=== PATIENT | male | born 1980 | race Caucasian/White ===

== ENCOUNTER 2021-12-15 17:09 | Emergency (ER) | payer OTHER, SELFPAY ==
[2021-12-15 17:27] VITALS: BP 161/100; PULSE 92; RESP 18; TEMP 37.4; O2SAT 98
--- NOTE | 2021-12-15 18:41 | ED.DENTAL ---
HPI - Dental/Oral General Chief complaint: Dental/Oral Stated complaint: Tooth pain Time Seen by Provider: 12/15/21 18:40 Source: patient, RN notes reviewed and old records reviewed Mode of arrival: ambulatory Limitations: no limitations History of Present Illness HPI Narrative: 41 year old male who presents to [facility] care with complaints of dental pain to lower molar for the past 3 days. Patient has noted dental caries with red swollen gums around #29 tooth. Patient reports that he has a dental appointment first week of December. Patient does have history of tobacco abuse of .5 packs per day of cigarettes. Patient reports that he has been taking ibuprofen for his discomfort. Patient denies any facial swelling or any difficulty with opening his mouth or any problems with breathing or swallowing. MD Complaint: tooth pain Location: Tooth # (29) Onset (ago): day(s) (3) Duration: constant Severity: moderate Severity scale (1-10): 5 Relieving factors: NSAIDs Exacerbating factors: chewing Associated symptoms: gum swelling Treatment prior to arrival: oral analgesic Related Data Home Medications Medication Instructions Recorded Confirmed Lexapro 10 mg PO DAILY 12/15/21 12/15/21 amlodipine 10 mg PO DAILY 12/15/21 12/15/21 Allergies Allergy/AdvReac Type Severity Reaction Status Date / Time codeine Allergy Unknown Nausea Verified 12/15/21 17:53 Review of Systems Review of Systems: CONSTITUTIONAL: Denies fever, chills, or sweats. EYES: Denies visual changes, redness, or discharge. ENT: Denies rhinorrhea, congestion, sore throat, or otalgia, positive for dental pain #29 tooth with gum swelling CARDIOVASCULAR: Denies chest pain, palpitations, or edema. RESPIRATORY: Denies cough or dyspnea. GASTROINTESTINAL: Denies abdominal pain, nausea, vomiting, or diarrhea. GENITOURINARY: Denies dysuria or hematuria. SKIN: Denies rash or itching. MUSCULOSKELETAL: Denies back pain, joint pain, or myalgia. NEUROLOGIC: Denies headache, numbness, or weakness. PSYCHIATRIC: Positive for history of anxiety or depression. All systems reviewed & are unremarkable except as noted in HPI and below PMFSH Past Medical History Medical History (Updated 12/17/21 @ 07:26 by Sofi Walker NP) Anxiety Fracture of jaw Hypertension Surgical History Surgical History (Updated 12/17/21 @ 07:19 by Sfoi Walker NP) H/O chest tube placement History of tonsillectomy Social History Social History (Updated 12/17/21 @ 07:20 by Sofi Walker NP) Smoking packs per day: 0.5 Smoking cigarettes per day: 10.0 Smoking status: Current every day smoker Tobacco type: cigarettes Alcohol intake: current Alcohol use details: social Substance use: never Living arrangements: with family Gender identity (if verbalized by the patient): Male Comments At time of signature, agree with nursing past medical, surgical, social and family history. There is no relevant family history pertinent to the presenting complaint Exam Narrative: GENERAL: Well-appearing, well-nourished, and in no acute distress. HEAD: Normocephalic, atraumatic. EYES: PERRLA and EOMI. ENT: Nares clear, no rhinorrhea or epistaxis. Mucous membranes moist.TM's normal with good lightreflex, throat pink with no lesions or exudates, tonsils absent, noted caries to #29 tooth with some surrounding gum swelling, no drainage noted, no trismus or any Keaton angina noted. NECK: Supple.no lymphadenopathy CHEST: Clear to auscultation. No respiratory distress.SAO2 98% on room air, no dyspnea or any tachypnea noted. HEART: Regular rate and rhythm. No murmur heard. Normal peripheral pulses. ABDOMEN: Soft, nontender, nondistended, normal active bowel sounds. EXTREMITIES: Normal range of motion. No edema. SKIN: Warm, dry, no rash. NEURO: No focal deficits. Alert and oriented x3. Course Course Level of Care: Express Care Visit Vital Signs Vital signs: Vital Signs Temperature 37.4 C
== END 2021-12-15 19:00 | disposition home or self-care (01) ==
PROVIDERS: Emergency Provider Registered Nurse; PCP Family Medicine
DX: K02.9 Dental caries, unspecified (principal); F17.210 Nicotine dependence, cigarettes, uncomplicated; I10 Essential (primary) hypertension; F41.9 Anxiety disorder, unspecified
CPT/HCPCS: 99203; G0463

== ENCOUNTER 2023-01-15 18:07 | Emergency (ER) | payer OTHER, SELFPAY ==
[2023-01-15 18:15] VITALS: BP 148/100; PULSE 109; RESP 16; TEMP 37.2; O2SAT 97
--- NOTE | 2023-01-15 18:45 | ED.ABDPAIN ---
HPI - Abdominal Pain General Chief Complaint: Abdominal Pain Stated Complaint: poss hernia Time Seen by Provider: 01/15/23 18:46 Source: patient and RN notes reviewed Mode of arrival: ambulatory Limitations: no limitations History of Present Illness HPI narrative: 42-year-old male presents with concern for a hernia. He reports swelling in his left groin. Reports it is painful, hurts to cough and sometimes it hurts to walk. Reports it has been intermittent for 1 month. He reports he has had some loose stools without diarrhea. He denies nausea or vomiting. He denies fever MD elicited complaint: abdominal pain Related Data Home Medications Medication Instructions Recorded Confirmed clonidine HCl 0.1 mg tablet 0.1 mg PO BID 01/15/23 01/15/23 escitalopram oxalate 20 mg tablet 20 mg PO DAILY 01/15/23 01/15/23 Allergies Allergy/AdvReac Type Severity Reaction Status Date / Time codeine Allergy Unknown Nausea Verified 01/15/23 18:20 Review of Systems Review of Systems: CONSTITUTIONAL: Denies malaise, chills, sweats, or fever. ENT: Denies rhinorrhea, congestion, sinus pain, otalgia or sore throat. CARDIOVASCULAR: Denies chest pain, palpitations, or edema. RESPIRATORY: Denies cough or dyspnea. GASTROINTESTINAL: Reports painful bulge in his groin. Denies other abdominal pain, nausea, vomiting, diarrhea, bloody, or mucous stools. GENITOURINARY: Denies dysuria or hematuria. MUSCULOSKELETAL: Denies myalgia. NEUROLOGIC: Denies headache. All systems reviewed & are unremarkable except as noted in HPI and below PMFSH Past Medical History Medical History (Updated 01/15/23 @ 18:55 by Jessica Valencia NP) Anxiety Fracture of jaw Hypertension Surgical History Surgical History (Updated 12/17/21 @ 07:19 by Sofi Walker NP) H/O chest tube placement History of tonsillectomy Social History Social History (Updated 12/17/21 @ 07:20 by Sofi Walker NP) Smoking packs per day: 0.5 Smoking cigarettes per day: 10.0 Smoking status: Current every day smoker Tobacco type: cigarettes Alcohol intake: current Alcohol use details: social Substance use: never Living arrangements: with family Gender identity (if verbalized by the patient): Male Comments At time of signature, agree with nursing past medical, surgical, social and family history. There is no relevant family history pertinent to the presenting complaint Exam Narrative: GENERAL: Well-appearing, well-nourished, and in no acute distress. HEAD: Normocephalic, atraumatic. EYES: PERRLA, conjunctivae clear, and EOMI. ENT: Nares clear, turbinates pink, no rhinorrhea or epistaxis. Mucous membranes moist. Oropharynx without edema, erythema, or lesions. Tonsils not enlarged and without exudate. NECK: Supple. No lymphadenopathy CHEST: Speaks in full sentences. No respiratory distress. HEART: Regular rate and rhythm. ABDOMEN: Soft, obese, nondistended, nontender. No guarding, rebound tenderness, or rigidity. No pulsatile masses. Bowel sounds present in all four quadrants. No organomegaly. Negative Alvarenga?s sign. No periumbilical tenderness. No Supra public tenderness or distension. Good femoral pulses bilaterally. Reducible inguinal hernia noted. no scars or surface trauma. SKIN: Warm, dry, no rash. NEURO: Alert and oriented x3. PSYCH: Normal mood and affect Course Course Emergency Course: Patient is aware of diagnosis, understands and agrees to treatment plan. Anticipatory guidance given. Patient agrees to follow-up as directed and is aware of reasons to seek care at the emergency department. Portions of this record may have been created with voice recognition software Level of Care: Express Care Visit Vital Signs Vital signs: Vital Signs Temperature 98.9 F 01/15/23 18:15 Pulse Rate 109 H 01/15/23 18:15 Respiratory Rate 16 01/15/23 18:15 Blood Pressure 148/100 H 01/15/23 18:15 Pulse Oximetry 97 01/15/23 18:15
== END 2023-01-15 18:58 | disposition home or self-care (01) ==
PROVIDERS: Emergency Provider Nurse Practitioner; PCP Internal Medicine
DX: K40.90 Unilateral inguinal hernia, without obstruction or gangrene, not specified as recurrent (principal); F17.219 Nicotine dependence, cigarettes, with unspecified nicotine-induced disorders; I10 Essential (primary) hypertension; F41.9 Anxiety disorder, unspecified
CPT/HCPCS: 99212; G0463

== ENCOUNTER 2023-10-08 18:47 | Emergency (ER) | payer OTHER, SELFPAY ==
[2023-10-08 19:18] VITALS: BP 152/105; PULSE 104; RESP 20; TEMP 37; O2SAT 98
--- NOTE | 2023-10-08 20:23 | ED.SKABFB ---
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 Patient reports that he has been applying Benadryl ointment to lesions due to them being so itchy. Lesions are noted to be red irritated itchy circular with some crusting and other red and open. MD complaint: lesion (multiple arms and leg one on back) Onset (ago): day(s) (2-3) Severity: moderate Quality: pruritic Treatments prior to arrival: other (Benadryl ointment) Related Data Home Medications Medication Instructions Recorded Confirmed clonidine HCl 0.1 mg tablet 0.1 mg PO BID 01/15/23 01/15/23 escitalopram oxalate 20 mg tablet 20 mg PO DAILY 01/15/23 01/15/23 Allergies Allergy/AdvReac Type Severity Reaction Status Date / Time codeine Allergy Unknown Nausea Verified 01/15/23 18:20 Review of Systems Review of Systems: CONSTITUTIONAL: Denies fever, chills, or sweats. CARDIOVASCULAR: Denies chest pain, palpitations, or edema. RESPIRATORY: Denies cough or dyspnea. SKIN: Reports pruritic lesions on his bilateral arms and lower legs, on on back that are red raised circular MUSCULOSKELETAL: Denies joint pain or myalgia. NEUROLOGIC: Denies headache, numbness, or weakness. All systems reviewed & are unremarkable except as noted in HPI and below PMFSH Past Medical History Medical History Anxiety Fracture of jaw Hypertension Surgical History Surgical History H/O chest tube placement History of tonsillectomy Social History Social History Smoking packs per day: 0.5 Smoking cigarettes per day: 10.0 Smoking status: Current every day smoker Tobacco type: cigarettes Alcohol intake: current Alcohol use details: social Substance use: never Living arrangements: with family Gender identity (if verbalized by the patient): Male Comments At time of signature, agree with nursing past medical, surgical, social and family history. There is no relevant family history pertinent to the presenting complaint Exam Narrative: GENERAL: Well-appearing, well-nourished, and in no acute distress. HEAD: Normocephalic, atraumatic. EYES: PERRLA, conjunctivae clear, and EOMI. ENT: Mucous membranes moist. Oropharynx without edema, erythema or lesions. NECK: Supple. No lymphadenopathy CHEST: Clear to auscultation. No respiratory distress.SAO2 98% on room air HEART: Regular rate and rhythm. SKIN: Warm, dry.?Diffuse red circular lesion on his arms and legs with one noted to his back that are itchy, some open red some with crusting NEURO:? Alert and oriented x3. PSYCH: Normal mood and affect Course Course Emergency Course: Patient is aware of diagnosis, understands and agrees to treatment plan.? Anticipatory guidance given.? Patient agrees to follow-up as directed and is aware of reasons to seek care at the emergency department. Portions of this record may have been created with voice recognition software Level of Care: Express Care Visit Vital Signs Vital signs: Vital Signs Temperature 37.0 C 10/08/23 19:18 Pulse Rate 104 H 10/08/23 19:18 Respiratory Rate 10/08/23 19:18 Blood Pressure 152/105 H 10/08/23 19:18 Pulse Oximetry 98 10/08/23 19:18 Oxygen Delivery Room Air 10/08/23 19:18 Temperature 37.0 C 10/08/23 19:18 Pulse Rate 104 H 10/08/23 19:18 Respiratory Rate 10/08/23 19:18 B
== END 2023-10-08 20:45 | disposition home or self-care (01) ==
PROVIDERS: Emergency Provider Registered Nurse; PCP Internal Medicine
DX: L98.9 Disorder of the skin and subcutaneous tissue, unspecified (principal); I10 Essential (primary) hypertension; F41.9 Anxiety disorder, unspecified
CPT/HCPCS: 99213; G0463

== ENCOUNTER 2023-11-10 16:16 | Emergency (ER) | payer OTHER, SELFPAY ==
[2023-11-10 16:22] VITALS: BP 154/86; PULSE 105; RESP 18; TEMP 37.3; O2SAT 97
--- NOTE | 2023-11-10 16:57 | ED.DENTAL ---
HPI - Dental/Oral General Chief complaint: Dental/Oral Stated complaint: Toothache Time Seen by Provider: 11/10/23 16:46 Source: patient, RN notes reviewed and old records reviewed Mode of arrival: ambulatory Limitations: no limitations History of Present Illness HPI Narrative: Patient complaint dental pain to right lower molars for 2 days. Patient endorses he has been treating at home with Excedrin and Orajel with some relief. Patient denies fevers, headache, facial swelling. patient states he has not seen his dentist in 2 years. Patient denies allergies. Patient currently on cephalexin for skin infection diagnosed by his primary care provider. Related Data Home Medications Medication Instructions Recorded Confirmed clonidine HCl 0.1 mg tablet 0.1 mg PO BID 01/15/23 11/10/23 escitalopram oxalate 20 mg tablet 20 mg PO DAILY 01/15/23 11/10/23 cephalexin 500 mg capsule 500 mg PO QID 11/10/23 11/10/23 chlorhexidine gluconate 4 % 1 applic topical DAILY 11/10/23 11/10/23 topical liquid ([place]-Hex) mupirocin 2 % topical ointment 1 applic topical TID 11/10/23 11/10/23 omeprazole 40 mg capsule,delayed 40 mg PO DAILY 11/10/23 11/10/23 release valsartan 320 1 tablet PO DAILY 11/10/23 11/10/23 mg-hydrochlorothiazide 12.5 mg tablet Allergies Allergy/AdvReac Type Severity Reaction Status Date / Time codeine AdvReac Unknown Nausea Verified 11/10/23 16:43 Review of Systems Review of Systems: All systems reviewed & are unremarkable except as noted in HPI and below Constitutional: Constitutional: Reports no additional constitutional complaints Eyes: Eyes: Reports no additional eye complaints ENT: Reports as per HPI, Reports dental pain, Denies otalgia, Denies headache(s), Denies nasal congestion, Denies neck pain, Denies sore throat, Denies throat swelling and Denies tongue swelling Cardiovascular: Cardiovascular: Reports no additional cardiovascular complaints, Denies chest pain and Denies dyspnea Respiratory: Respiratory: Reports no additional respiratory complaints, Denies cough and Denies dyspnea Musculoskeletal: Musculoskeletal: Reports no additional musculoskeletal complaints Neurologic: Reports system reviewed and no additional complaints, except as documented Psychiatric: Psychiatric: Reports no additional psychiatric complaints PMFSH Past Medical History Medical History Anxiety Fracture of jaw Hypertension Surgical History Surgical History H/O chest tube placement History of tonsillectomy Social History Social History Smoking packs per day: 0.5 Smoking cigarettes per day: 10.0 Smoking status: Current every day smoker Tobacco type: cigarettes Alcohol intake: current Alcohol use details: social Substance use: never Living arrangements: with family Gender identity (if verbalized by the patient): Male Comments At the time of my signature, I reviewed and agree with the nursing past medical, surgical, social, and family history. There is no relevant family history pertinent to the patient complaint. Exam Const: General: cooperative, healthy appearing, comfortable, no acute distress, alert and well nourished Nutritional Appearance: well nourished Orientation/consciousness: patient oriented x3 Limitations: no limitations HENMT: Head: normal to inspection Ears: external ears normal Face/Nose/Sinus: Normal external nose present, Normal nares present, normal facial exam, No erythema and No edema Face and sinus: normal facial exam, no erythema and no edema Mouth: Yes Normal oral and palatal mucosa present Teeth and gingiva: abnormal tooth and associated gingiva, caries, gingiva abnormal hypertrophic, edematous, diffusely erythematous and tender; without any purulent discharge, multiple restorations and poor dentition
== END 2023-11-10 17:10 | disposition home or self-care (01) ==
PROVIDERS: Emergency Provider Nurse Practitioner Family; PCP Internal Medicine
DX: K04.7 Periapical abscess without sinus (principal); K02.9 Dental caries, unspecified; S02.5XXA Fracture of tooth (traumatic), initial encounter for closed fracture; X58.XXXA Exposure to other specified factors, initial encounter; F41.9 Anxiety disorder, unspecified; I10 Essential (primary) hypertension; F17.210 Nicotine dependence, cigarettes, uncomplicated
CPT/HCPCS: 99213; G0463

== ENCOUNTER 2024-11-16 13:02 | Emergency (ER) | payer SELFPAY ==
--- OUTSIDE RECORDS SUMMARY | 2024-11-16 13:05 | XMS_ITS | Referral Summary ---
Author Organization [facility] Virtual Care Address [address] [place] [phone] Phone Care Team Providers Care [place] Attendant Name Role Phone Anil Singh MD Primary Care Provider [phone] Allergies Active Allergy Reactions Criticality Noted Date Comments Codeine Nausea only Low 12/15/2021 Lisinopril Cough Low 03/24/2019 Medications acetaminophen 500 mg capsule Take 2 capsules (1,000 mg total) by mouth every 6 (six) hours. 30 tablet 08/14/20 18 Active omeprazole (PriLOSEC) 40 mg capsule TAKE 1 CAPSULE BY MOUTH EVERY DAY 90 capsule 08/09/20 23 Active escitalopram (LEXAPRO) 20 mg tablet TAKE 1 TABLET BY MOUTH EVERY DAY 90 tablet 02/01/20 24 Active ALPRAZolam (XANAX) 0.5 mg tabletIndication s:Generalized Anxiety Disorder Take 1-2 tablets 3 times daily as needed for anxiety. 16 tablet 1 04/04/20 24 Active mupirocin (BACTROBAN) 2 % ointment Apply topically 3 (three) times a day 22 g 1 04/24/20 24 Active valsartan-hydroc hlorothiazide (DIOVAN-HCT) 320-12.5 mg per tablet Take 1 tablet by mouth daily 90 tablet 04/24/20 24 Active cloNIDine (CATAPRES) 0.1 mg tabletIndication s:Essential hypertension Take 1 tablet (0.1 mg total) by mouth 2 (two) times a day 180 tablet 1 04/24/20 24 Active amLODIPine (NORVASC) 5 mg tabletIndication s:Essential hypertension Take 1 tablet (5 mg total) by mouth daily 30 tablet 04/24/20 24 025 Active chlorhexidine (HIBICLENS) 4 % external liquidIndication s:Skin Disinfection Apply topically daily as needed for wound care 120 mL 1 04/24/20 24 Active albuterol HFA (PROVENTIL HFA,VENTOLIN HFA,PROAIR HFA) 90 mcg/actuation inhaler Inhale 2 puffs every 6 (six) hours as needed for wheezing 3 each 4 04/24/20 24 025 Active oxyCODONE (ROXICODONE) 5 mg immediate release tabletIndication s:Pain Take 1 tablet (5 mg total) by mouth every 4 (four) hours as needed for pain 6 tablet 04/26/20 24 Active Additional Information Patient not taking.Reported on 05/09/2024 polymyxin B-trimethoprim (POLYTRIM) ophthalmic solution Administer 2 drops into the right eye every 6 (six) hours 10 mL 1 05/09/20 24 Active doxycycline (VIBRAMYCIN) 100 mg capsule Take 1 tablet/capsule (100 mg total) by mouth 2 (two) times a day 18 tablet/caps ule 05/30/20 24 Active doxycycline (VIBRAMYCIN) 100 mg capsuleIndicatio ns:Skin infection Take 1 tablet/capsule (100 mg total) by mouth 2 (two) times a day Antibiotic to treat skin infection. Collaborating physician Rohan Horne MD 20 capsule 06/27/20 24 Active hydrOXYzine (ATARAX) 25 mg tabletIndication s:Pruritic dermatitis Take 1-2 tablets (25-50 mg total) by mouth every 6 (six) hours P.r.n. itch and rash. Collaborating physician Rohan Horne MD 30 tablet 06/27/20 24 Active lisinopril-hydro CHLOROthiazide (ZESTORETIC) 20-25 mg per tablet TAKE 1 TABLET BY MOUTH EVERY DAY 90 tablet 2 09/16/19 20 023 Discontin ued(Dose adjustmen t) Active Problems Problem Noted Date Diagnosed Date Skin infection 06/27/2024 Pruritic dermatitis 06/27/2024 Acute viral conjunctivitis of right eye 05/09/20 24 Assessment & Plan (05/10/2024 3:46 PM CDT): Acute conjunctivitis x3 days right eye. Red inflamed no significant pain no vision changes. Patient is polymyxin B ophthalmic drops to use the same as if he had pink eye. Alcohol abuse 04/04/2024 Assessment & Plan (05/10/2024 3:45 PM CDT): Continues to be out of work he has suspended on leave from work . He has been in communication with [facility] as well as [facility] facilities for treatment alcohol he is going to meetings.. Written to his employer stating he has not been to work since March 27 because of alcohol addiction and he is now going to meetings. This patient has never come in the office under the influence. He has never denied that he has has an addiction problem. Assessment & Plan (04/25/2024 5:19 PM CDT): Patient advised me he has been going to for approximately 10 days. He is scheduled to start treatment with [facility] outpatient facility in the next 4 days.. His longest period of time of sobriety has been about 18 months as his several years ago after the of his father.. Patient is advised me his job is on hold until he can show evidence of recovery he may return to work at that time. Advised patient I will not write returned to work slip for him until he has a least for the 7 days minimum of going through rehab on a daily basis outpatient. Patient has also been in contact with [facility] here in [place] Assessment & Plan (04/04/2024 5:15 PM CDT): Patient advised me they talk with treatment outpatient for alcohol abuse. Will allow him to do this. Patient advised me he will start outpatient at [facility] in [facility] next week. He plans to stop drinking this weekend requested medications for withdrawal. Was given alprazolam 0.5 mg 1-2 tablets t.i.d. p.r.n. dispensed 16 tablets with 1 refill. Patient understands if he takes too many medications or he can overdose while drinking. Sober at this time. He has vowed not to mix the 2 alcohol and alprazolam. Need for hepatitis C screening test 04/04/2024 Skin lesions 03/25/2024 Assessment & Plan (04/04/2024 5:17 PM CDT): Patient is given a refill of Hibiclens soap and Bactroban ointment for lesions on his skin Assessment & Plan (03/27/2024 3:28 PM CDT): Lesions to all 4 extremities as noted above, some mild cellulitis left to right posterior ankle. No current drainage. Finish Keflex and Bactrim as prescribed. Keep skin clean and dry. Strongly encouraged patient not to pick at lesions as he will just re-infect himself. Keep skin moist so it does not dry and crack, can use any non scented lotion and/or plain Vaseline for this. Staphylococcus epidermidis infection 11/02/2023 Assessment & Plan (04/25/2024 5:13 PM CDT): Patient has staph infections least 70% improved. Antibiotics given today patient is advised to continue Hibiclens keep wounds clean. Assessment & Plan (11/02/2023 4:50 PM COMMUNITY CENTER COORDINATOR): Patient has been having recurrent boils over his body for least 2 months. If it in his to his cleaning out a a dirty house are been rooms in the house came in contact with lot of bugs in his of the time in his. He has him get it area still has problems is areas over his skin of his back legs feet arms that are very suggestive of staph infection he has swelling in his lower legs could be possible in part from amlodipine part of his problems related to the infection.. Starting him on Keflex 500 milligram/grams q.i.d. 7 days . Hibiclens wash with Bactroban put on some of largest skin lesions.. S/P bilateral inguinal hernia repair 04/04/2023 Inguinal hernia without obstruction or gangrene 01/17/2023 Assessment & Plan (01/30/2023 9:09 AM CDT): The patient has a symptomatic left inguinal hernia. On exam feels like he may have a right inguinal impulse as well. We will set him up for a robotic assisted left inguinal hernia repair with possible repair on the right. We have discussed postoperative restrictions. We have discussed time needed off work. We have discussed the need for mesh implantation. All questions answered. Assessment & Plan (01/17/2023 12:07 PM CDT): Patient has a left inguinal hernia. Was bulge several months he is able to reduce this hernia. Yesterday was given considerable pain he went to urgent care facility our [facility] confirm the diagnosis and showed him how to reduce the hernia. Patient is given information from up-to-date today regarding hernias he is referred to surgery at [facility]. Inattention 10/26/2022 Assessment & Plan (10/26/2022 8:09 AM COMMUNITY CENTER COORDINATOR): Reportedly chronic problem, patient was reportedly previously treated for ADHD with Adderall, hasn't been on for years Physical examination as documented - no signs/symptoms of serious illness noted Recommended clonidine to help with ADHD/inattention as this medication can also help with HTN - patient agreeable to plan Orders for AMS STAFF to arrange Schedule 1 month follow up with me - mood, inattention, blood pressure follow up Orders for Grayson Henriquez to arrange FOR BLOOD PRESSURE AND INATTENTION: Start clonidine as prescribed Eat well, exercise regularly, practice good sleep hygiene Monitor blood pressure at home - report readings consistently >140/90 or <90/60 Continue monitoring symptoms - report persistent or worsening symptoms to the office or go to ER Get labs and urine testing tomorrow as agreed upon today - office to call after receiving results of testing Follow up in 1 month for follow up with me on mood, blood pressure and inattention Follow up in [address] Singh for annual Anxiety and depression 09/28/2022 Assessment & Plan (10/26/2022 8:08 AM COMMUNITY CENTER COORDINATOR): Chronic problem, improved s/p starting bupropion Physical examination as documented - no signs/symptoms of serious illness noted Recommended continuing medications as prescribed, as well as making lifestyle modification as discuss previously (including decreasing alcohol intake) - instructed patient to bring in FMLA paperwork and the office can look into completing it - patient verbalized understanding and agreement with plan Orders for AMS STAFF to arrange Schedule 1 month follow up with me - mood, inattention, blood pressure follow up Orders for Grayson Henriquez to arrange FOR MOOD: Continue bupropion and escitalopram for mood Continue relaxation techniques as needed Eat well, rest well Continue going to conseling through work program Decrease alcohol intake Continue monitoring symptoms - report persistent or worsening symptoms to the office or go to ER Get labs and urine testing tomorrow as agreed upon today - office to call after receiving results of testing Follow up in 1 month for follow up with me on mood, blood pressure and inattention Follow up in [address] Singh for annual Assessment & Plan (09/28/2022 7:24 AM COMMUNITY CENTER COORDINATOR): Chronic problem, recently exacerbated per patient report due to losing father and taking on increased care responsibility of mother Physical examination as documented - no signs/symptoms of serious illness noted Recommended adding bupropion, decreasing alcohol intake, continuing counseling and making other lifestyle modifications - patient agreeable to plan Orders for AMS STAFF to arrange 4 week follow up - mood, anxiety/depression Orders for Grayson Hneriquez to arrange FOR MOOD: Start bupropion as ordered Eat well - decrease alcohol intake Practice good sleep hygiene Exercise regularly Practice relaxation techniques Continue talking with counselor through work Continue monitoring symptoms - report persistent or worsening symptoms to the office or go to ER Follow up in 4 weeks for mood Follow up with dentist as scheduled Follow up as scheduled with Dr. Singh or sooner if necessary Arthralgia 05/21/2022 Assessment & Plan (05/21/2022 6:16 PM CDT): Pain left hand low bit of pain posterior distal calf left calf has a red area could be an insect bite calf exquisite tenderness over the ankle. Range of motion and palpating no warmth or redness to the ankle. Patient has had no precise injury however his clean out a dirty area few days ago he thinks he may have been bitten by an insect. Plans at this time check a uric acid start this patient on Naprosyn 500 mg twice a day 14 days and doxycycline 100 mg b.i.d. 7 days. Patient given handout on spider bites. Encounter for preventive health examination 09/2019 Assessment & Plan (04/25/2024 5:10 PM CDT): History and physical completed patient's health risk assessment health maintenance reviewed and addressed. He Is not in good health secondary to alcohol abuse. Patient's has hypertension sometimes difficult to control. In the past 4 months he has had recurrent staph infections on his skin. Patient is advised a need for tetanus and pneumonia vaccine he would like to delay this until a future date. Patient advised me he will be going in outpatient rehab in the next 4 days. Laboratory results from the emergency rooms in the past few months reviewed no need for lab tests today. Assessment & Plan (12/26/2021 12:25 PM CDT): History and physical completed health risk assessment reviewed in addressed.. Patient needs a Tdap. Assessment & Plan (05/28/2020 12:42 PM CDT): History and physical completed patient's health risk assessment health maintenance reviewed in addressed. Hospital discharge follow-up 10/12/2018 Assessment & Plan (10/12/2018 6:13 PM COMMUNITY CENTER COORDINATOR): Patient admitted to hospital and transferred to [facility] on 08/01/2018 final diagnosis empyema replacement of her chest to for drainage. Patient's minimal chest pain is breathing well at this time. Medication reconciliation completed. Follow-up chest x-ray schedule. He is return to work Essential hypertension 02/26/2018 Assessment & Plan (05/10/2024 3:44 PM CDT): Out of medication I gave this patient has samples of the Edarbi 40 mg to take 2 once a day this sample she would last him 2 weeks. Patient iasymptomatic at this time respect to hypertension. Edarbi he has basic a substitute for valsartan save him some money once he runs out and Edarbi samples he can get valsartan prescription refilled and I am making no changes in his his clonidine 0.1 b.i.d. prescription or amlodipine 5 mg daily. Assessment & Plan (04/25/2024 5:21 PM CDT): BP 168/110 patient states he has been on medicine 2 days he will get them filled today. Bello resulting in a stroke. Advised patient's alcoholism makes his blood pressure difficult to control once his alcohol improves his blood pressure will improve ge in therapy valsartan HCTZ 320/12.5, amlodipine 5 mg daily clonidine 0.1 mg b.i.d. Assessment & Plan (04/04/2024 5:16 PM CDT): Blood pressure is 152/100 patient is advised to continue present medications. Assessment & Plan (03/27/2024 3:26 PM CDT): Chronic, at goal. BP stable in office today on current therapy. No acute findings on exam. Labs from December unremarkable except for drug screen, was positive for amphetamine use. Continue amlodipine, clonidine, Diovan HCT as prescribed. low salt diet. Given limited refills today as patient is due for annual exam with Dr. Singh. Assessment & Plan (11/22/2023 5:39 PM CDT): Blood pressure is greatly improved patient has far less stressed on today's visit will continue present therapy. Assessment & Plan (11/02/2023 4:53 PM COMMUNITY CENTER COORDINATOR): Patient has hypertension can be difficult to control he showed me some blood pressure readings from home been running [id number] systolic 100 diastolic. He has having a lot of swelling in his legs part of it could be from amlodipine going to decrease amlodipine from 10 mg daily to 5 mg. He has had problems with lisinopril in the past in terms of coughing. I am start him on ARB Diovan 325/12.5 1 tablet daily advised he may developed a cough this medicine chance is a far smaller than when he was on lisinopril going to continue him on clonidine 0.1 mg daily as well as amlodipine as previously stated. Patient will see me in 2 weeks he is get blood pressure readings twice a day bring him to his next visit. Patient is requesting FMLA because wide swings in his blood pressure and I am in agreement with this as well as has a current skin infection. Will be off from today November 02, 2023 will returned to work November 07, 2023. Assessment & Plan (01/17/2023 12:09 PM CDT): Blood pressure is not controlled. Patient is on amlodipine 10 mg daily clonidine pain 0.1 mg twice a day added to his therapy. Patient's follow-up appointment approximate 2 months Assessment & Plan (10/26/2022 8:11 AM COMMUNITY CENTER COORDINATOR): Chronic problem, uncontrolled on current therapy, patient asymptomatic Physical examination as documented - no signs/symptoms of serious illness noted Recommended starting clonidine, which will also help with reported inattention/ADHD, as well as making lifestyle change - patient agreeable to plan Orders for [facility] STAFF to arrange Schedule 1 month follow up with me - mood, inattention, blood pressure follow up Orders for Grayson Henriquez to arrange FOR BLOOD PRESSURE AND INATTENTION: Start clonidine as prescribed Eat well, exercise regularly, practice good sleep hygiene Monitor blood pressure at home - report readings consistently >140/90 or <90/60 Continue monitoring symptoms - report persistent or worsening symptoms to the office or go to ER Get labs and urine testing tomorrow as agreed upon today - office to call after receiving results of testing Follow up in 1 month for follow up with me on mood, blood pressure and inattention Follow up in [address] Singh for annual Assessment & Plan (12/26/2021 12:30 PM CDT): Blood pressures L a today he has a higher level anxiety secondary to recent family illness in the past few days. He back doing well. With back in 3-4 weeks he will monitor his blood pressure at home Assessment & Plan (05/28/2020 12:43 PM CDT): Hypertension well controlled patient tolerating medications no change in therapy. Assessment & Plan (06/12/2019 6:27 PM CDT): Follow-up visit for hypertension which is well controlled patient is no distress. He is tolerating the medications well he has no symptoms referable to his hypertension please continue present therapy. Visit for 03/24/2019. Assessment & Plan (10/12/2018 6:14 PM COMMUNITY CENTER COORDINATOR): . Pressure initially elevated 142/108 repeat 146/118. Patient given clonidine 0.1 mg blood pressure came down 130/90. Patient no distress no chest pain or shortness breath. Patient is given a prescription for clonidine a fall 1 month. Assessment & Plan (09/23/2018 10:30 AM COMMUNITY CENTER COORDINATOR): Hypertension is unchanged. Continue current treatment regimen. Dietary sodium restriction. Regular aerobic exercise. Continue current medications. Blood pressure will be reassessed at the next regular appointment. Assessment & Plan (05/18/2018 5:07 PM CDT): Blood pressure log sheet out office shows very good results blood pressure in office is not good patient has a component of white coat hypertension. No change in therapy will continue to monitor blood pressure log sheet. Assessment & Plan (03/26/2018 4:19 PM CDT): Hypertension is improving with treatment. Continue current treatment regimen. Dietary sodium restriction. Blood pressure will be reassessed at the next regular appointment. Patient's blood pressure has improved he is tolerating the medications. 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 Assessment & Plan (02/26/2018 1:42 PM CDT): Patient's diagnosed hypertension October 2017 hematuria emergency room at [facility] the feeling dizzy that time in systolic of 150 /104 patient started on lisinopril he took the medicine for few weeks not get it refilled. He is asymptomatic today his blood pressure is significantly elevated 142/114 repeated x2. Patient advised since the need to treat hypertension consequences hypertension. Patient is given medication Edarbi chlorthalidone 40 /12.5 once daily. Patient's see me in 4 weeks CMP is requested fasting lipid profile. Patient will need to get this medicine to [facility] if it works for him. Anxiety state 01/10/2014 Overview (12/01/2016): ANXIETY STATE NOS Assessment & Plan (04/25/2024 5:13 PM CDT): Patient continues on Lexapro 20 mg daily he has benefitted from this. Continue present therapy. Patient on some occasion alprazolam 0.25 mg given b.i.d. p.r.n.. Limited supply less than 20 pills. Assessment & Plan (11/22/2023 5:39 PM CDT): Patient missed his original appointment on 3 02/14/2020 for his blood pressure reported at home 160/120 min at the end of the day staff was leaving I talked with him at that time he had a blood pressure of 130/90 he discussed he was in the lot of stress his father recently and he has property house that he did he has an family members are giving him a lot of grief over his use the home. His mother is paranoid schizophrenic in his in the care home. Patient admits he drinks on a daily basis missed 2 days of work secondary to will concentration. On today's visit 11/22/2023 patient is having less stress discussed current concerns when he wants to stop drinking and was successful in going 90 days without drinking this was at the time his father was dying over 6 months ago. He did go through some withdrawal. Second situation is that he has a friend he is helping out allowing him to live in his home however his friends associates clearly does not have this patient's best interest in mind he is going to have to make some decisions of excluding people out of his life. Also has a 14-year-old son who he is involved in taking care of. At this time we discussed prior to his in his life and stress management situation. Patient did feel much better at the end of the visit no medication changes were made. Assessment & Plan (12/26/2021 12:29 PM CDT): Patient advised me Lexapro 10 mg per day is not adequate. Was advised that he needs to call us back with medications . Min increase his Lexapro to 20 mg per day see him back in 3-4 weeks.. Trazodone which he advised me did work. Advised him we under increased to 100 mg. Patient advised me his mother is in the hospital she attempted suicide this weekend. She has a long history of depression he has a brother with depression.. Patient patient's drinks daily 3 drinks per night this have is been present for at least 5 years. His. At time without drinking was 1 week he had no difficulty during that time. Smoking history is apart 3/4 of a pack per day.. Plans get a CMP look at his liver functions as well as his renal function because of hypertension. Assessment & Plan (05/28/2020 12:42 PM CDT): Patient continues uses Lexapro occasionally has brief moments of anxiety is been a significant improvement medication. No change in therapy. Assessment & Plan (06/12/2019 6:28 PM CDT): Patient continues take Lexapro 10 mg daily effective in helping the patient's anxiety visit for 06/24/2019. Assessment & Plan (05/18/2018 5:09 PM CDT): Patient continues the Lexapro/escitalopram is working effectively for him no change in therapy Assessment & Plan (03/26/2018 4:19 PM CDT): Patient is comfortable in Lexapro 10 mg per day he is more relaxed feels less tense less anxious and focusing better. Assessment & Plan (02/26/2018 1:43 PM CDT): Patient is a lot of anxiety was previously treated over 5 years ago for depression with Lexapro for 2 months. He did have some benefits from the Lexapro and other times did feel is if it was helping him. 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 Plans start on Lexapro 10 mg daily see if this will improve his sleep by helping his nighttime anxiety. Discussed on next visit. Tobacco dependence syndrome 01/10/2014 Overview (12/01/2016): Tobacco abuse Assessment & Plan (02/26/2018 1:44 PM CDT): . Patient this time is not ready to quit smoking will discuss in the future next visit. Resolved Problems Problem Noted Date Diagnosed Date Resolved Date Pain, dental 09/28/2022 03/25/2024 Assessment & Plan (09/28/2022 7:21 AM COMMUNITY CENTER COORDINATOR): Acute problem, present on and off for a little bit Physical examination as documented - no signs/symptoms of serious illness noted Suspect uncontrolled diffuse periodontal disease with likely acute infection Recommended antibiotics and following up with dentist as scheduled - patient agreeable to plan Orders for AMS STAFF to arrange 4 week follow up - mood, anxiety/depression Orders for Grayson Henriquez to arrange FOR TOOTH: Start Augmentin as ordered - complete course, take with food and probtiotic to prevent stomach upset and diarrhea Continue OTC medications as needed for pain Continue monitoring symptoms - report persistent or worsening symptoms to the office or go to ER Follow up in 4 weeks for mood Follow up with dentist as scheduled Follow up as scheduled with Dr. Singh or sooner if necessary Empyema lung 08/12/2018 03/24/2019 Assessment & Plan (09/23/2018 10:33 AM COMMUNITY CENTER COORDINATOR): Patient admitted to [facility] 08/11/2018 initial diagnosis pleural effusion, discharge diagnosis empyema. Is negative for TB fungal bacteria or any malignancy. Patient has had a full recovery informs me he had a follow-up chest x-ray at [facility] since the fluid was taken off. Is no consequences from this infection at this time. Immunizations Immunization Administration Dates Next Due Influenza, Unspecified 06/05/2023(Deferred: Zehra ent Refused) Tdap 04/26/2024 Social History Tobacco Use Types Packs/Day Years Used Date Smoking Tobacco: Every Day Cigarettes 1 20.2 Started: 2004 Passive Smoke Exposure: Current Smokeless Tobacco: Never Tobacco Cessation:Ready to Q uit: Not Asked; Counseling Given: Not Answered Alcohol Use Standard Drinks/Week Comments Yes 0 (1 standard drink = 0.6 oz pur e alcohol) AUDIT-C Answer Date Recorded Q1: How often do you have a drink containing alcohol? 4 or more times a week 03/16/2023 Q2: How many drinks containi ng alcohol do you have on a typical day when you are drinking? 5 or 6 Q3: How often do you have si x or more drinks on one occasion? Daily or almost daily 03/16/2023 PHQ-2 Answer Date Recorded PHQ-2 Total Score 6 04/24/2024 PHQ-9 Answer Date Recorded PHQ-9 Total Score 18 04/24/2024 Personal Safety Answer Date Recorded Have you ever been in or are you currently in a harmful physical or emotional relationship or is someone making you feel afraid or unsafe? Denies 06/27/2024 Sex and Gender Information Value Date Recorded Sex Assigned at Not on file Legal Sex Male 12:30 AM COMMUNITY CENTER COORDINATOR Gender Identity Not on file Sexual Orientation Not on file Last Filed Vital Signs Vital Sign Reading Time Taken Comments Blood Pressure 148/89 06/27/2024 6:12 PM CDT Pulse 110 06/27/2024 6:12 PM CDT Temperature 35.7 C (96.3 F) 06/27/2024 3:41 PM CDT Respiratory Rate 16 06/27/2024 6:12 PM CDT Oxygen Saturation 97% 06/27/2024 6:12 PM CDT Inhaled Oxygen Concentration - - Weight 102.1 kg (225 lb) 06/27/2024 3:41 PM CDT Height 180.3 cm (5' 11 ) 06/27/2024 3:41 PM CDT Body Mass Index 31.38 06/27/2024 3:41 PM CDT Plan of Treatment Not on file Medical Devices Implanted Type Area Notching Machine Operator Device Identifier Shelf Expiration Date Model / Serial / Lot [employer]/C R Bard Mesh Surgical Mid Anatomical Synthetic Patch 3dmax 4x6in [id number] - [id number] Implanted:Qty: 1 on 03/16/2023 by Fly Kaufman MD at [facility] Right: Inguinal [employer]/C R Bard 12/23/2027 [id number] / / [id number] [employer]/C R Bard Mesh Surgical Inguinal Hernia Synthetic Patch 3dmax 4x6in [id number] - [id number] Implanted:Qty: 1 on 03/16/2023 by Fly Kaufman MD at [facility] Left: Inguinal [employer]/C R Bard 08/23/2027 [id number] / / [id number] Insurance [facility] Advance Directives For more information, please contact: [phone] * Full Code (Latest Code Status on File) Date Activated Date Inactivated Comments 08/12/2018 12:23 AM 08/14/2018 5:11 PM Care Teams [place] Attendant Relationship Specialty Start Date End Date Anil Singh MD PCP - General Internal Medicine 02/11/18
--- OUTSIDE RECORDS SUMMARY | 2024-11-16 13:05 | XMS_ITS | Clinical Summary ---
Author Organization [facility] Virtual Care Address [address] [place] [id number] Phone Care Team Providers Care Machine Ii Trimmer Name Role Phone Anil Singh MD Primary Care Provider [phone]- [phone] Allergies Active Allergy Reactions Criticality Noted Date [...] . He has been in communication with [place] as well as [place] facilities for treatment alcohol he is going [...] He is scheduled to start treatment with [facility] outpatient facility in the next 4 days.. [...] also been in contact with [facility] here in [place] Assessment & Plan (04/04/2024 5:15 PM CDT): Patient advised me they talk with treatment outpatient for alcohol abuse. Will allow him to do this. Patient advised me he will start outpatient at [facility] in [facility] next week. He plans to stop [...] clean. Assessment & Plan (11/02/2023 4:50 PM ASSISTANT DEAN): Patient has been having recurrent boils over [...] he went to urgent care facility [facility] confirm the diagnosis and showed him how to reduce the hernia. Patient is given information from up-to-date today regarding hernias he is referred to surgery at [facility]. Inattention 10/26/2022 Assessment & Plan (10/26/2022 8:09 AM ASSISTANT DEAN): Reportedly chronic problem, patient was reportedly previously [...] 09/28/2022 Assessment & Plan (10/26/2022 8:08 AM ASSISTANT DEAN): Chronic problem, improved s/p starting bupropion Physical [...] annual Assessment & Plan (09/28/2022 7:24 AM ASSISTANT DEAN): Chronic problem, recently exacerbated per patient report [...] for Grayson Henriquez to arrange FOR MOOD: Start bupropion as [...] 10/12/2018 Assessment & Plan (10/12/2018 6:13 PM ASSISTANT DEAN): Patient admitted to hospital and transferred to [place] on 08/01/2018 final diagnosis empyema replacement of [...] therapy. Assessment & Plan (11/02/2023 4:53 PM ASSISTANT DEAN): Patient has hypertension can be difficult to control he showed me some blood pressure [place] from [place] been [place] [id number] systolic 100 diastolic. He has having a [...] months Assessment & Plan (10/26/2022 8:11 AM ASSISTANT DEAN): Chronic problem, uncontrolled on current therapy, patient asymptomatic Physical examination as documented - no signs/symptoms of serious illness noted Recommended starting clonidine, which will also help with reported inattention/ADHD, as well as making lifestyle change - patient agreeable to plan Orders for [facility] ST[facility]FF to arrange Schedule 1 month follow [...] 03/24/2019. Assessment & Plan (10/12/2018 6:14 PM ASSISTANT DEAN): . Pressure initially elevated 142/108 repeat 146/118. Patient given clonidine 0.1 mg blood pressure came down 130/90. Patient no distress no chest pain or shortness breath. Patient is given a prescription for clonidine a fall 1 month. Assessment & Plan (09/23/2018 10:30 AM ASSISTANT DEAN): Hypertension is unchanged. Continue current treatment regimen. [...] hypertension October 2017 hematuria emergency room at [facility] the feeling dizzy that time in systolic [...] is paranoid schizophrenic in his in the long-term. Patient admits he drinks on a daily [...] 03/25/2024 Assessment & Plan (09/28/2022 7:21 AM ASSISTANT DEAN): Acute problem, present on and off for [...] 03/24/2019 Assessment & Plan (09/23/2018 10:33 AM ASSISTANT DEAN): Patient admitted to [facility] 08/11/2018 initial diagnosis pleural effusion, discharge diagnosis empyema. Is negative for TB fungal bacteria or any malignancy. Patient has had a full recovery informs me he had a follow-up chest x-ray at [facility] since the fluid was taken off. Is no consequences from this infection at this time. Immunizations Immunization Administration Dates Next Due Influenza, Unspecified 06/05/2023(Deferred: Zehra ent Refused) Tdap 04/26/2024 Surgical History Surgery Date Site/Laterality Comments TONSILLECTOMY MANDIBLE FRACTURE SURGERY HERNIA REPAIR 03/16/2023 Bilateral Medical History Medical History Date Comments Hypertension Anesthesia complication mother h as a reaction to anesthesia Palpitations Allergic rhinitis GERD (gastroesophageal reflux disease) Depression Family History Medical History Relation Name Comments Other Cousin 2 enlarged heart; COPD Father COPD; Relation Name Status Comments Cousin 1 Cousin 2 Father Alive Social History Tobacco Use Types Packs/Day Years [...] on file Legal Sex Male 12:30 AM ASSISTANT DEAN Gender Identity Not on file Sexual Orientation Not on file Obstetrics History Last Filed Vital Signs Vital Sign Reading [...] 06/27/2024 3:41 PM CDT Plan of Treatment Health Maintenance Due Date Last Done Comments Hepatitis C Screening 1981 Varicella Vaccines (1 of 2 - 13+ 2-dose series) 1994 Hepatitis B Screening 1999 Pneumococcal vaccine <65 (1 of 2 - PCV) 2000 Influenza Vaccine (#1) 2024 Depression Screening 04/24/2025 04/24/2024, 12/26/2021, 12/26/2021, Additional history exists Regular Well Visit/Exam 18-64 04/24/2025 04/24/2024, 12/26/2021, 05/28/2020, Additional history exists DTaP/Tdap/Td Vaccine (2 - Td or Tdap) 04/26/2034 04/26/2024 HPV Vaccines Aged Out No longer eligi ble based on patient's age to complete this topic Medical Devices Implanted Type Area [employer] Healer Device Identifier Shelf Expiration Date Model / Serial / Lot [employer]/C R Bard Mesh Surgical Mid Anatomical Synthetic Patch 3dmax 4x6in [id number] - [id number] Implanted:Qty: 1 on 03/16/2023 by Fly Kaufman MD at [facility] Right: Inguinal [employer]/C R Bard 12/23/2027 [id number] / / [id number] [employer]/C R Bard Mesh Surgical Inguinal Hernia Synthetic Patch 3dmax 4x6in [id number] - [id number] Implanted:Qty: 1 on 03/16/2023 by Fly Kaufman MD at [facility] Left: Inguinal [employer]/C R Bard 08/23/2027 [id number] / / [id number] Insurance [facility] H[facility] Advance Directives For more information, please contact: [phone] * Full Code (Latest Code Status on File) Date Activated Date Inactivated Comments 08/12/2018 12:23 AM 08/14/2018 5:11 PM Care Teams Machine Ii Trimmer Relationship Specialty Start Date End Date Anil Singh MD PCP - General Internal Medicine 02/11/18
--- OUTSIDE RECORDS SUMMARY | 2024-11-16 13:05 | XMS_ITS | Clinical Summary ---
Author Organization [facility] Address [address] [place] [address] Phone Care Team Providers Care Waste Disposal Plant Operator Name Role Phone Anil Singh MD Primary Care Provider Allergies No known active allergies Medications lisinopril (PRINIVIL, ZESTRIL) 20 MG Tablet Take 1 Tab by mouth daily. 14 Tab 11/20/2017 Active escitalopram (LEXAPRO) 10 MG Tablet Take 10 mg by mouth daily. Active HYDROcodone-betty taminophen (NORCO) 5-325 MG Tablet Take 1 Tab by mouth every 6 hours as needed for Moderate or more severe pain. 15 Tab 05/25/2020 Active Social History Tobacco Use Types Packs/Day Years Used Date Smoking Tobacco: Every Day Cigarettes Smokeless Tobacco: Never Tobacco Cessation:Ready to Q uit: Not Asked; Counseling Given: Not Answered Alcohol Use Standard Drinks/Week Comments Yes 0 (1 standard drink = 0.6 oz pur e alcohol) one pint daily Sex and Gender Information Value Date Recorded Sex Assigned at Male 03/28/2024 11:46 PM CDT Legal Sex Male 9:24 PM CDT Gender Identity Male 03/28/2024 11:46 PM CDT Sexual Orientation Not on file Last Filed Vital Signs Vital Sign Reading Time Taken Comments Blood Pressure 151/87 07/29/2024 1:45 AM AIRLINE STEWARDESS Pulse 105 07/29/2024 1:45 AM AIRLINE STEWARDESS Temperature 36.4 C (97.5 F) 07/29/2024 1:44 AM AIRLINE STEWARDESS Respiratory Rate 18 07/29/2024 1:44 AM AIRLINE STEWARDESS Oxygen Saturation 100% 07/29/2024 1:45 AM AIRLINE STEWARDESS Inhaled Oxygen Concentration - - Weight 104.3 kg (230 lb) 07/29/2024 1:44 AM AIRLINE STEWARDESS Height 180.3 cm (5' 11 ) 07/29/2024 1:44 AM AIRLINE STEWARDESS Body Mass Index 32.08 07/29/2024 1:44 AM AIRLINE STEWARDESS Plan of Treatment Health Maintenance Due Date Last Done Comments Hepatitis C Virus (HCV) Screening 1981 Hepatitis B Immunization (1 of 3 - 19+ 3-dose series) 2000 Pneumococcal Immunization Combined (1 of 2 - PCV) 2000 Influenza Immunization (#1) 2024 SARS-COV-2 Immunization ( - season) 2024 Respiratory Syncytial Virus (RSV) Immunization (Adult) (1 - 1-dose 75+ series) 2056 DTaP/Tdap/Td Immunization Discontinued 04/26/2024 TdaP Immunization Completed 04/26/2024 Meningococcal Immunization (ACWY) Aged Out No longer eligible based on patient's age to complete this topic Rotavirus Immunization Aged Out No lo nger eligible based on patient's age to complete this topic Care Teams Waste Disposal Plant Operator Relationship Specialty Start Date End Date Anil Singh MD [address] [place] [address] PCP - General Internal Medicine 08/11/18
[2024-11-16 13:07] VITALS: BP 239/139; PULSE 120; RESP 20; TEMP 36.2; O2SAT 96
[2024-11-16 13:15] VITALS: BP 180/115
--- NOTE | 2024-11-16 13:38 | ECG_ITS ---
Test Date: 2024-11-16 13:35:34 Measurements Intervals Waves Rate: 112 P: 51 ID: 152 QRS: 23 QRSD: 108 T: 107 QT: 416 QTc: 570 Interpretive Statements SINUS TACHYCARDIA LEFT ATRIAL ENLARGEMENT [-0.15mV P WAVE IN V1/V2] MODERATE T-WAVE ABNORMALITY, CONSIDER LATERAL ISCHEMIA [-0.1+ mV T WAVE IN I/aVL/V5/V6] WARNING: DATA QUALITY MAY AFFECT INTERPRETATION No previous ECG available for comparison Electronically Signed On 11-17-2024 16:31:53 CDT by David Kim M.D.
--- NOTE | 2024-11-16 13:39 | ED_ITS ---
HPI - General Adult General Chief complaint: Shortness of Breath/Dyspnea Stated complaint: sob/cough Source: patient Mode of arrival: ambulatory Limitations: no limitations History of Present Illness HPI narrative: Patient presents for evaluation of shortness of breath. Symptoms started abruptly about 1.5 weeks ago with exertion. Today he noted worsening symptoms while at rest. This prompted concern for him is he has a history of a pneumothorax and pleural effusion approximately 8-10 years ago. He denies any chest pain. He has experienced some lower extremity swelling. He has underlying hypertension for which he is prescribed valsartan-HCTZ and amlodipine. He ran out of the valsartan-hctz a few months ago. In triage here today his blood pressure was 239/139 with a recheck of 180/115. He smokes 3/4-1 ppd. He also smoke methamphetamine, with last date of use three days ago. He consumes 6-12 Fireball-containing drinks daily. He has consumed alcohol prior to coming in today. He denies any fever, chills, nausea or vomiting. Related Data Home Medications ?Medication ?Instructions ?Recorded ?Confirmed ?Last Taken ?Type clonidine HCl 0.1 mg tablet 0.1 mg PO BID 01/15/23 11/10/23 Unknown History Allergies Allergy/AdvReac Type Severity Reaction Status Date / Time codeine AdvReac Unknown Nausea Verified 11/16/24 13:16 Review of Systems Review of Systems: CONSTITUTIONAL: Denies fever, chills, or sweats. EYES: Denies visual changes, redness, or discharge. ENT: Denies rhinorrhea, congestion, sore throat, or otalgia. CARDIOVASCULAR: Reports swelling bilateral lower legs. Denies chest pain or palpitations RESPIRATORY: Reports shortness of breath and occasional cough GASTROINTESTINAL: Denies abdominal pain, nausea, vomiting, or diarrhea. GENITOURINARY: Denies dysuria or hematuria. SKIN: Denies rash or itching. MUSCULOSKELETAL: Denies back pain, joint pain, or myalgia. NEUROLOGIC: Denies headache, numbness, dizziness, or weakness. PSYCHIATRIC: Denies anxiety or depression. [facility] Past Medical History Medical History Anxiety Fracture of jaw Hypertension Surgical History Surgical History H/O chest tube placement History of tonsillectomy Family History Family History Mother Family history non-contributory Social History Social History Smoking packs per day: 0.5 Smoking cigarettes per day: 10.0 Smoking status: Current every day smoker Tobacco type: cigarettes Alcohol intake: current Alcohol use details: social Substance use: never Living arrangements: with family Gender identity (if verbalized by the patient): Male Exam Narrative: GENERAL: Slightly diaphoretic. Well-nourished, and in no acute distress. HEAD: Normocephalic, atraumatic. EYES: PERRLA and EOMI. ENT: Nares clear, no rhinorrhea or epistaxis. Mucous membranes moist. Oropharynx without tonsillar hypertrophy exudate or other lesions. Bilateral TMs pearly ball nonbulging NECK: Supple. No adenopathy or masses. No carotid bruits or JVD CHEST: Clear to auscultation. No respiratory distress. No wheezes rales or rhonchi HEART: Rate 108. Regular rhythm. No murmur heard. Normal peripheral pulses. ABDOMEN: Soft, nontender, nondistended, normal active bowel sounds. EXTREMITIES: Normal range of motion. No edema. SKIN: Warm, dry, no rash. NEURO: No focal deficits. Alert and oriented x3. PSYCH: Normal mood and affect. Course Course Emergency Course: This is a 44-year-old male who presented for evaluation of shortness of breath. On my initial exam he was tachycardic. I ambulated him in the hallway in his heart rate accelerated into the 170s. I recommended he be transferred to the emergency department for further evaluation and treatment. [facility] is his facility of choice. I contacted the ER at [facility] and spoke with registered nurse, Fifi, who advised that Dr Wiggins would accept pt for transfer there. Pt transported via EMS. Level of Care: Express Care Visit Vital Signs Vital signs: Vital Signs Temperature 36.2 C L 11/16/24 13:07 Pulse Rate 120 H 11/16/24 13:07 Respiratory Rate 20 11/16/24 13:07 Blood Pressure 239/139 H 11/16/24 13:07 Pulse Oximetry 96 11/16/24 13:07 Oxygen Delivery Room Air 11/16/24 13:07 Temperature 36.2 C L 11/16/24 13:07 Pulse Rate 120 H 11/16/24 13:07 Respiratory Rate 20 11/16/24 13:07 Blood Pressure 180/115 H 11/16/24 13:15 Pulse Oximetry 96 11/16/24 13:07 Oxygen Delivery Room Air 11/16/24 13:07 Medical Decision Making Vital Signs Vital Signs: Vital Signs Temperature 36.2 C L 11/16/24 13:07 Pulse Rate 120 H 11/16/24 13:07 Respiratory Rate 20 11/16/24 13:07 Blood Pressure 239/139 H 11/16/24 13:07 Pulse Oximetry 96 11/16/24 13:07 Oxygen Delivery Room Air 11/16/24 13:07 Temperature 36.2 C L 11/16/24 13:07 Pulse Rate 120 H 11/16/24 13:07 Respiratory Rate 11/16/24 13:07 Blood Pressure 180/115 H 11/16/24 13:15 Pulse Oximetry 96 11/16/24 13:07 Oxygen Delivery Room Air 11/16/24 13:07 ECG Data EKG #1: Interpretation: Conducted at 1335 shows sinus tachycardia, rate 112, T wave inversion in aVL, V5, and V6 Discharge Plan Discharge Clinical Impression: Shortness of breath, Tachycardia Patient Disposition: Acute Care Hospital Condition: Stable Patient Language: Welsh Prescriptions: No Action clonidine HCl 0.1 mg tablet 0.1 mg PO BID Follow-up/Referrals: Emerald,Anil Allen MD [Primary Care Provider] - Time of Disposition: 13:39
== END 2024-11-16 13:43 | disposition short-term general hospital (02) ==
PROVIDERS: Emergency Provider Nurse Practitioner; PCP Internal Medicine
DX: R06.02 Shortness of breath (principal); R00.0 Tachycardia, unspecified; F17.210 Nicotine dependence, cigarettes, uncomplicated; I10 Essential (primary) hypertension; F15.90 Other stimulant use, unspecified, uncomplicated; F10.90 Alcohol use, unspecified, uncomplicated
CPT/HCPCS: 93005; 99215; G0463

== ENCOUNTER 2024-12-02 17:42 | Emergency (ER) | payer SELFPAY ==
--- OUTSIDE RECORDS SUMMARY | 2024-12-02 17:44 | XMS_ITS | Referral Summary ---
Author Organization [facility] Virtual Care Address [address] [place] [phone] Phone Care Team Providers Care Automotive Drivability Technician Name Role Phone Anil Singh MD Primary Care Provider [phone]- [phone] Encounters Date Type Department Care Team Description 11/16/2024 1:50 PM CDT - 11/16/2024 11:59 PM CDT Hospital Encounter [facility] Emergency, Room R Discharge Disposition: Discharge to home or self care from Last 3 Months Allergies Active Allergy Reactions Criticality Noted Date [...] . He has been in communication with [place] as well as [place] facilities for treatment alcohol he is going [...] advised me he has been going to AA for approximately 10 days. He is scheduled to start treatment with [facility] outpatient facility in the next 4 days.. [...] Patient has also been in contact with [facility] here in [place] Assessment & Plan (04/04/2024 5:15 PM CDT): Patient advised me they talk with treatment outpatient for alcohol abuse. Will allow him to do this. Patient advised me he will start outpatient at [place] next week. He plans to stop [...] clean. Assessment & Plan (11/02/2023 4:50 PM WOMEN'S ACTIVITIES ADVISER): Patient has been having recurrent boils over [...] he went to [facility] care facility [facility] confirm the diagnosis and showed him how to reduce the hernia. Patient is given information from up-to-date today regarding hernias he is referred to surgery at [facility]. Inattention 10/26/2022 Assessment & Plan (10/26/2022 8:09 AM WOMEN'S ACTIVITIES ADVISER): Reportedly chronic problem, patient was reportedly previously treated for ADHD with Adderall, hasn't been on for years Physical examination as documented - no signs/symptoms of serious illness noted Recommended clonidine to help with ADHD/inattention as this medication can also help with HTN - patient agreeable to plan Orders for [facility] to arrange Schedule 1 month follow [...] 09/28/2022 Assessment & Plan (10/26/2022 8:08 AM WOMEN'S ACTIVITIES ADVISER): Chronic problem, improved s/p starting bupropion Physical [...] annual Assessment & Plan (09/28/2022 7:24 AM WOMEN'S ACTIVITIES ADVISER): Chronic problem, recently exacerbated per patient report [...] 10/12/2018 Assessment & Plan (10/12/2018 6:13 PM WOMEN'S ACTIVITIES ADVISER): Patient admitted to hospital and transferred to [place] on 08/01/2018 final diagnosis empyema replacement of [...] therapy. Assessment & Plan (11/02/2023 4:53 PM WOMEN'S ACTIVITIES ADVISER): Patient has hypertension can be difficult to control he showed me some blood pressure readings from home been running [id number] systolic 100 diastolic. He has having a [...] months Assessment & Plan (10/26/2022 8:11 AM WOMEN'S ACTIVITIES ADVISER): Chronic problem, uncontrolled on current therapy, patient [...] 03/24/2019. Assessment & Plan (10/12/2018 6:14 PM WOMEN'S ACTIVITIES ADVISER): . Pressure initially elevated 142/108 repeat 146/118. Patient given clonidine 0.1 mg blood pressure came down 130/90. Patient no distress no chest pain or shortness breath. Patient is given a prescription for clonidine a fall 1 month. Assessment & Plan (09/23/2018 10:30 AM WOMEN'S ACTIVITIES ADVISER): Hypertension is unchanged. Continue current treatment regimen. [...] hypertension October 2017 hematuria emergency room at [place]' the feeling dizzy that time in systolic [...] is paranoid schizophrenic in his in the senior care. Patient admits he drinks on a daily [...] 03/25/2024 Assessment & Plan (09/28/2022 7:21 AM WOMEN'S ACTIVITIES ADVISER): Acute problem, present on and off for [...] scheduled Follow up as scheduled with Dr. Signh or sooner if necessary Empyema lung 08/12/2018 03/24/2019 Assessment & Plan (09/23/2018 10:33 AM WOMEN'S ACTIVITIES ADVISER): Patient admitted to [facility] 08/11/2018 initial diagnosis pleural effusion, discharge diagnosis empyema. Is negative for TB fungal bacteria or any malignancy. Patient has had a full recovery informs me he had a follow-up chest x-ray at [facility] since the fluid was taken off. Is no consequences from this infection at this time. Immunizations Immunization Administration Dates Next Due Influenza, Unspecified 06/05/2023(Deferred: Zehra ent Refused) Tdap 04/26/2024 Social History Tobacco Use Types Packs/Day Years Used Date Smoking Tobacco: Every Day Cigarettes 1 20.3 Started: 2004 Passive Smoke Exposure: Current Smokeless [...] on file Legal Sex Male 12:30 AM WOMEN'S ACTIVITIES ADVISER Gender Identity Not on file Sexual Orientation [...] on file Medical Devices Implanted Type Area Construction Area Manager Device Identifier Shelf Expiration Date Model / Serial / Lot [employer]/C R Bard Mesh Surgical Mid Anatomical Synthetic Patch 3dmax 4x6in [id number] - [id number] Implanted:Qty: 1 on 03/16/2023 by Fly Kaufman MD at [facility] Right: Inguinal [employer] 12/23/2027 [id number] / / [id number] [employer] Bard Mesh Surgical Inguinal Hernia Synthetic Patch 3dmax 4x6in [id number] - [id number] Implanted:Qty: 1 on 03/16/2023 by Fly Kaufman MD at [facility] Left: Inguinal [employer]/C R Bard 08/23/2027 [id number] / / [id number] Insurance Advance Directives For more information, please contact: [phone] * Full Code (Latest Code Status on File) Date Activated Date Inactivated Comments 08/12/2018 12:23 AM 08/14/2018 5:11 PM Care Teams Automotive Drivability Technician Relationship Specialty Start Date End Date Anil Singh MD PCP - General Internal Medicine 02/11/18
--- OUTSIDE RECORDS SUMMARY | 2024-12-02 17:44 | XMS_ITS | Clinical Summary ---
Author Organization [facility] Address [address] [place] [address] Phone Care Team Providers Care Construction Equipment Mechanic Helper Name Role Phone Anil Singh MD Primary Care Provider [phone] Allergies Active Allergy Reactions Criticality Noted Date Comments Codeine Nausea 11/16/2024 Lisinopril Other (see Comments) 11/16/2024 Cough Medications escitalopram (LEXAPRO) 10 MG Tablet Take 10 mg by mouth daily. Active omeprazole (PriLOSEC) 40 MG CAPSULE DELAYED RELEASE Take 1 Capsule by mouth daily. 3 Active albuterol 108 (90 Base) MCG/ACT Aerosol Solution take 2 Puffs by inhalation every 4 hours as needed for Wheezing. 4 025 Active amLODIPine (NORVASC) 10 MG Tablet Take 10 mg by mouth daily. Active aspirin 81 MG Chewable Tablet Take 1 Tablet by mouth daily. 5 Active atorvastatin (LIPITOR) 40 MG Tablet Take 1 Tablet by mouth nightly. 90 Tablet 5 Active folic acid (FOLVITE) 1 MG Tablet Take 1 Tablet by mouth daily. 30 Tablet 5 Active losartan (COZAAR) 50 MG Tablet Take 1 Tablet by mouth daily. 90 Tablet 5 Active metoprolol Succinate (TOPROL-XL) 100 MG TABLET SR 24 HR Take 1 Tablet by mouth daily. 90 Tablet 5 Active nicotine (NICODERM CQ) 21 MG/24HR PATCH 24 HR 1 Patch by Transdermal route every 24 hours. 30 Patch 5 Active spironolactone (ALDACTONE) 25 MG Tablet Take 1 Tablet by mouth daily. 90 Tablet 5 Active thiamine (VITAMIN B1) 100 MG Tablet Take 1 Tablet by mouth daily. 30 Tablet 5 Active furosemide (LASIX) 40 MG TabletIndicati ons:Heart Failure Take 1 Tablet by mouth daily as needed for Other (edema of the legs, shortness of breath or weight gain of 2 lbs or more). Indications: Cardiac Failure 90 Tablet 5 Active lisinopril (PRINIVIL, ZESTRIL) 20 MG Tablet Take 1 Tab by mouth daily. 14 Tab 8 025 Discontinu ed(Med List Clean Up) HYDROcodone-ac etaminophen (NORCO) 5-325 MG Tablet Take 1 Tab by mouth every 6 hours as needed for Moderate or more severe pain. 15 Tab 0 025 Discontinu ed(Med List Clean Up) cloNIDine (CATAPRES) 0.1 MG Tablet Take 0.1 mg by mouth daily. 4 025 Discontinu ed(Alterna te therapy) thiamine (VITAMIN B1) 100 MG Tablet Take 1 Tablet by mouth 3 times daily for 21 doses. 21 Tablet 5 Active Problems Problem Noted Date Diagnosed Date Alcohol dependency 11/17/2024 Illicit drug use 11/17/2024 GERD (gastroesophageal reflux disease) 5 Cellulitis of lower extremity 11/17/2024 Elevated troponin 11/17/2024 New onset of congestive heart failure 11/16/2024 Skin lesions 03/25/2024 Anxiety and depression 09/28/2022 Tobacco dependence syndrome 01/10/2014 Overview (11/17/2024): Tobacco abuse Hypertension Encounters Date Type Department Care Team Description 11/26/2024 Patient Outreach [facility] [address] [place] [address] Krupa Pinto, clinical case manager of Care (Week 1) 11/19/2024 Patient Outreach [facility] [address] [place] [address] Joaquina Fenton clinical case manager of Care (Post discharge, initial call, CHF ) 11/16/2024 5:42 PM CDT - 11/18/2024 1:35 PM CDT Hospital Encounter [facility] Med Surg [address] [place] [address] Figueroa Car MD Krishna, Naveen Kumar, MD Dianati, Behfar, MD New onset of congestive heart failure (HCC) Discharge Disposition: Discharged to home or Selfcare 11/16/2024 2:05 PM CDT - 11/16/2024 5:18 PM CDT Emergency [facility] Emergency [address] [place] [address] Dee Wiggins MD Pulmonary nodule Discharge Disposition: Left Against Medical Advice 11/16/2024 Travel from Last 3 Months Social History Tobacco Use Types Packs/Day Years Used Date Smoking Tobacco: Every Day Cigarettes Smokeless Tobacco: Never Tobacco Cessation:Ready to Q uit: Not Asked; Counseling Given: Not Answered Alcohol Use Standard Drinks/Week Comments Yes 0 (1 standard drink = 0.6 oz pur e alcohol) one pint daily [facility] Utilities Answer Date Recorded In the past 12 months has th e electric, gas, oil, or water company threatened to shut off services in your home? No 11/16/2024 Hunger Vital Sign Answer Date Recorded Within the past 12 months, y ou worried that your food would run out before you got the money to buy more. Never true 11/17/19 25 Within the past 12 months, t he food you bought just didn't last and you didn't have money to get more. Never true 11/16/2024 PRAPARE - Transportation Answer Date Re corded In the past 12 months, has l ack of transportation kept you from medical appointments or from getting medications? No 10/26 In the past 12 months, has l ack of transportation kept you from meetings, work, or from getting things needed for daily living? No 11/16/2024 Housing Stability Vital Sign Answer Jose Alberto e Recorded In the last 12 months, was t here a time when you were not able to pay the mortgage or rent on time? No 11/16/2024 In the past 12 months, how m any times have you moved where you were living? 0 11/16/2024 At any time in the past 12 m [facility], were you homeless or living in a half-way (including now)? No 11/16/2024 Sex and Gender Information Value Date Recorded Sex Assigned at Male 03/28/2024 11:46 PM CDT Legal Sex Male 9:24 PM CDT Gender Identity Male 03/28/2024 11:46 PM CDT Sexual Orientation Not on file Last Filed Vital Signs Vital Sign Reading Time Taken Comments Blood Pressure 132/77 11/18/2024 11:15 AM CDT Pulse 72 11/18/2024 11:15 AM CDT Temperature 36.5 C (97.7 F) 11/18/2024 11:15 AM CDT Respiratory Rate 16 11/18/2024 11:15 AM CDT Oxygen Saturation 92% 11/18/2024 11:15 AM CDT Inhaled Oxygen Concentration - - Weight 116.8 kg (257 lb 8 oz) 11/16/2024 8:44 PM CDT Height 182.9 cm (6') 11/16/2024 8:44 PM CDT Body Mass Index 34.92 11/16/2024 8:44 PM CDT Plan of Treatment Health Maintenance Due Date Last Done Comments Hepatitis C Virus (HCV) Screening 1980 Hepatitis B Immunization (1 of 3 - 19+ 3-dose series) 2000 Pneumococcal Immunization Combined (1 of 2 - PCV) 2000 SARS-COV-2 Immunization ( - season) 2024 Influenza Immunization (Seas on Ended) 2025 Respiratory Syncytial Virus (RSV) Immunization (Adult) (1 - 1-dose 75+ series) 2056 DTaP/Tdap/Td Immunization Discontinued 04/26/2024 TdaP Immunization Completed 04/26/2024 Meningococcal Immunization (ACWY) Aged Out No longer eligible based on patient's age to complete this topic Rotavirus Immunization Aged Out No lo nger eligible based on patient's age to complete this topic Procedures Procedure Name Priority Date/Time Associated Diagnosis Comments CBC WITH AUTO DIFFERENTIAL Routine 11/18/2024 4:52 AM CDT LIPID PANEL Routine 11/18/2024 4:52 AM CDT COMPLETE BLOOD COUNT (CBC) WITH DIFF Routine 11/18/2024 4:52 AM CDT BASIC METABOLIC PANEL W/ CALCIUM TOTAL Routine 11/18/2024 4:52 AM CDT RHYTHM STRIP 11/18/2024 12:00 AM CDT RHYTHM STRIP 11/18/2024 12:00 AM CDT RHYTHM STRIP 11/18/2024 12:00 AM CDT ADULT TRANS THORACIC ECHO 2D COMPLETE STAT 11/17/2024 9:30 AM CDT CULTURE, BLOOD Routine 11/17/2024 1:34 AM CDT CULTURE, BLOOD Routine 11/17/2024 1:34 AM CDT CBC WITH AUTO DIFFERENTIAL STAT 11/17/2024 1:27 AM CDT MAGNESIUM (MG) STAT 11/17/2024 1:27 AM CDT COMPLETE BLOOD COUNT (CBC) WITH DIFF STAT 11/17/2024 1:27 AM CDT BASIC METABOLIC PANEL W/ CALCIUM TOTAL STAT 11/17/2024 1:27 AM CDT URINALYSIS REFLEX IF INDICATED BY ABNORMAL RESULTS STAT 11/17/2024 1:16 AM CDT CULTURE, URINE Routine 11/17/2024 1:16 AM CDT RHYTHM STRIP 11/17/2024 12:00 AM CDT RHYTHM STRIP 11/17/2024 12:00 AM CDT RHYTHM STRIP 11/17/2024 12:00 AM CDT C-REACTIVE PROTEIN (CRP) QUANT Routine 11/16/2024 6:36 PM CDT BASIC METABOLIC PANEL W/ CALCIUM TOTAL STAT 11/16/2024 6:36 PM CDT TROPONIN I, HIGH SENSITIVITY (HSTRP) STAT 11/16/2024 6:36 PM CDT CRITICAL CARE Routine 11/16/2024 6:[address] ANGIO CHEST W/WO CONTRAST WITH PP (POST PROCESSING) Stat with Interpretation 11/16/2024 3:45 PM CDT TROPONIN I, HIGH SENSITIVITY (HSTRP) STAT 11/16/2024 3:25 PM CDT XR CHEST 2 VIEWS STAT 11/16/2024 2:53 PM CDT CRITICAL CARE Routine 11/16/2024 2:26 PM CDT CBC WITH AUTO DIFFERENTIAL STAT 11/16/2024 2:15 PM CDT D-DIMER STAT 11/16/2024 2:15 PM CDT TROPONIN I, HIGH SENSITIVITY (HSTRP) STAT 11/16/2024 2:15 PM CDT B-TYPE NATRIURETIC PEPTIDE (BNP) STAT 11/16/2024 2:15 PM CDT CMP (COMPREHENSIVE METABOLIC PANEL) STAT 11/16/2024 2:15 PM CDT COMPLETE BLOOD COUNT (CBC) WITH DIFF STAT 11/16/2024 2:15 PM CDT EKG 12 LEAD STAT 11/16/2024 2:07 PM CDT RHYTHM STRIP 11/16/2024 12:00 AM CDT EKG SCAN 11/16/2024 12:00 AM CDT EKG SCAN 11/16/2024 12:00 AM CDT from Last 3 Months Results * (ABNORMAL) CBC with Auto Differential (11/18/2024 4:52 AM CDT) Only the most recent of3 resultswithin the time period is included. WBC 14.01(H) 4.00 - 12.00 10(3)/mcL 11/18/2024 6:23 AM CDT [facility] RBC 4.50 4.40 - 5.80 10(6)/mcL 11/18/2024 6:23 AM CDT [facility] HEMOGLOBIN (HGB) 14.9 13.0 - 16.5 g/dL 11/18/2024 6:23 AM CDT [facility] HEMATOCRIT (HCT) 45.9 38.0 - 50.0 % 11/18/2024 6:23 AM CDT [facility] MCV 102.0(H) 82.0 - 96.0 fL 11/18/2024 6:23 AM CDT [facility] MCH 33.1(H) 26.0 - 32.0 pg 11/18/2024 6:23 AM CDT [facility] MCHC 32.5 31.0 - 36.0 g/dL 11/18/2024 6:23 AM CDT [facility] PLATELET COUNT 407 140 - 440 10(3)/mcL 11/18/2024 6:23 AM CDT [facility] RDW 16.2(H) 11.8 - 15.5 % 11/18/2024 6:23 AM CDT [facility] MPV 10.6 8.0 - 12.6 fL 11/18/2024 6:23 AM CDT [facility] NEUTROPHILS 65.4 40.0 - 68.0 % 11/18/2024 6:23 AM CDT [facility] LYMPHOCYTES 25.1 19.0 - 49.0 % 11/18/2024 6:23 AM CDT [facility] MONOCYTES 7.3 3.0 - 13.0 % 11/18/2024 6:23 AM CDT [facility] EOSINOPHILS 1.6 0.0 - 8.0 % 11/18/2024 6:23 AM CDT [facility] BASOPHILS 0.6 0.0 - 1.0 % 11/18/2024 6:23 AM CDT [facility] ABSOLUTE NEUTROPHILS 9.16(H) 1.40 - 5.30 10(3)/mcL 11/18/2024 6:23 AM CDT [facility] ABSOLUTE LYMPHOCYTES 3.52(H) 0.90 - 3.30 10(3)/mcL 11/18/2024 6:23 AM CDT [facility] ABSOLUTE MONOCYTES 1.02(H) 0.10 - 0.90 10(3)/mcL 11/18/2024 6:23 AM CDT [facility] ABSOLUTE EOSINOPHIL 0.23 0.00 - 0.50 10(3)/mcL 11/18/2024 6:23 AM CDT [facility] ABSOLUTE BASOPHILS 0.08 0.00 - 0.10 10(3)/[facility] 11/18/2024 6:23 AM CDT [facility] NRBC PER 100 WBC 0 11/19/19 6:23 AM CDT [facility] Blood Venipuncture / Unknown 11/18/2024 4:52 AM CDT 11/18/2024 6:08 AM CDT us Vita Grider REGISTERED DIET TECHNICIAN, CLIENT FINANCE ANALYST HEMATOLOGY ORDERABLES Fin al Result [facility] [address] [place] [address] * (ABNORMAL) Lipid Panel (11/18/2024 4:52 AM CDT) CHOLESTEROL 200(H) <200 mg/dL 11/18/2024 11:55 AM CDT [facility] TRIGLYCERIDES 188(H) <150 mg/dL 11/18/2024 11:55 AM CDT [facility] HDL CHOLESTEROL 48 >40 mg/dL 11:55 AM CDT [facility] LDL 114 <130 mg/dL 11/18/2024 11:55 AM CDT [facility] VLDL 38 10 - 50 mg/dL 11/18/2024 11:55 AM CDT [facility] CHOL/HDL RATIO 4.2 0.0 - 4.4 11/18/2024 11:55 AM CDT [facility] NON-HDL CHOLESTEROL 152(H) <130 mg/dL 11/18/2024 11:55 AM CDT [facility] Blood Venipuncture / Unknown 11/18/2024 4:52 AM CDT 11/18/2024 6:09 AM CDT us Sharon Griffin MD CHEMISTRY ORDERABLES Final Res ult [facility] [address] [place] [address] * (ABNORMAL) BMP with Ca, Total (11/18/2024 4:52 AM CDT) Only the most recent of3 resultswithin the time period is included. SODIUM 138 136 - 145 mmol/L 11/18/2024 6:43 AM CDT [facility] POTASSIUM 3.4(L) 3.5 - 5.1 mmol/L 11/18/2024 6:43 AM CDT [facility] CHLORIDE 103 98 - 107 mmol/L 11/18/2024 6:43 AM CDT [facility] CO2, VENOUS 24 22 - 30 mmol/L 11/18/2024 6:43 AM CDT [facility] ANION GAP 14.4 <18.0 mmol/L 11/18/2024 6:43 AM CDT [facility] GLUCOSE 144(H) 70 - 99 mg/dL 11/18/2024 6:43 AM CDT [facility] BUN 14 9 - 21 mg/dL 11/18/2024 6:43 AM CDT [facility] CREATININE, BLOOD 1.22 0.70 - 1.30 mg/dL 11/18/2024 6:43 AM CDT [facility] BUN/CREATININE RATIO 11(L) 12 - 20 ratio 11/18/2024 6:43 AM CDT [facility] CALCIUM 9.4 8.7 - 10.5 mg/dL 11/18/2024 6:43 AM CDT [facility] GFR, ESTIMATED >60 >=60 11/18/2024 6:43 AM CDT [facility] Comment: Creatinine Clearance is the preferred criteria for selecting drug dose adjustments in renally impaired patients. The GFR is provided as additional pertinent clinical information. GFR is reported in mL/min/1.73 sq m. Calculation based on the Chronic Kidney Disease Epidemiology Collaboration (CKD- EPI) equation refit without adjustment for race. GFR, EST. >60 >=60 025 6:43 AM CDT [facility] GFR, EST. NONAFRICAN >60 >=60 11/18/2024 6:43 AM CDT [facility] Blood Venipuncture / Unknown 11/18/2024 4:52 AM CDT 11/18/2024 6:09 AM CDT us Vita Grider REGISTERED DIET TECHNICIAN, CLIENT FINANCE ANALYST CHEMISTRY ORDERABLES Eugenie l Result [facility] [address] [place] [address] * RHYTHM STRIP (11/18/2024 12:00 AM CDT) Only the most recent of7 resultswithin the time period is included. 11/18/2024 us Provider Scan IMG ECG ORDERABLES Final Result RESULTING AGENCY * ADULT TRANS THORACIC ECHO 2D COMPLETE (11/17/2024 9:30 AM CDT) AV Peak Grad mmHg 5.66 mmHg RESULTING AGENCY Mean Aortic Valve Gradient (MAVG) 3 mmHg RESULTING AGENCY LV end lei diam cm 5 cm RESULTING AGENCY LV end sys diam cm 4.1 cm RESULTING AGENCY Aortic Root Diam cm 3.4 cm RESULTING AGENCY LA vol index ml/m2 20 ml/m2 RESULTING AGENCY LVOT Peak Nabeel m/sec 0.912 m/sec RESULTING AGENCY AV Peak Nabeel m/sec 1.19 m/sec RESULTING AGENCY MV Mean Grad mmHg 2 mmHg RESULTING AGENCY E/A Ratio 0.91 RESULTING AGENCY E/E' 10 RESULTING AGENCY AV Area (VTI) cm2 3.22 cm2 RESULTING AGENCY SEPTUM DIASTOLIC CM 1.4 cm RESULTING AGENCY PW DIASTOLIC CM 1.3 cm RESU LTING AGENCY LA VOLUME 46.7 ml RESULTING AGENCY Anatomical Region Laterality Modality CARDIO N/A Ultrasound Narrative 11/17/2024 10:23 PM CDT Transthoracic Echocardiography Report (TTE) Patient name HALIMA Trejo Trish 1980 Patient ID (UPI) [id number] Indications: Congestive heart failure, Shortness of breath and Hypertension. Study Date11/17/2024 Technical quality: Good visualization Type of Study: TTE procedure: Adult Trans Thoracic Echo 2D Complete. Priority:RoutineHR: 96 bpmBP: 157/103 mmHg Conclusions Summary The left ventricle is normal in size. There is mild concentric left ventricular hypertrophy. LV function is moderately reduced with ejection fraction 38%. There is global hypokinesis. Grade I diastolic dysfunction. Average global longitudinal strain (GLS) -7.4%%, utilizing TOMTEC software, is abnormal. Normal right ventricular size and function. Normal atria. No hemodynamically significant valvular abnormalities. Findings Mitral Valve The mitral valve is normal. There is no evidence of mitral stenosis. There is no significant mitral regurgitation. Aortic Valve The aortic valve is trileaflet with normal leaflet excursion. There is no evidence of aortic valve stenosis. There is no significant aortic valve insufficiency. Tricuspid Valve The tricuspid valve is normal. There is no evidence of tricuspid stenosis. There is no significant tricuspid regurgitation. There is no evidence of pulmonary hypertension. Pulmonic Valve The pulmonic valve structure appears normal. There is no evidence of pulmonic stenosis. There is no significant pulmonic valve regurgitation. Left Atrium The left atrium size is normal. Left Ventricle The left ventricle is normal in size. There is mild concentric left ventricular hypertrophy. LV function is moderately reduced with ejection fraction 38%. There is global hypokinesis. Grade I diastolic dysfunction. Average global longitudinal strain (GLS) -7.4%%, utilizing TOMTEPostedIn software, is abnormal. Right Atrium The right atrium size is normal. Right Ventricle Normal right ventricular cavity size and normal systolic function. Pericardial Effusion The pericardium is normal. There is no pericardial effusion visualized. Miscellaneous Aortic root and proximal ascending aorta are normal in size when indexed for BSA. Atrial septum appears intact. IVC is normal in size and respiratory response. Aortic arch appears normal. Valves Mitral Valve Peak E-Wave: 0.96 m/s Area (continuity): 2.4 cm^2 Peak A-Wave: 1.06 m/s Mean Velocity: 0.60 m/s Peak Gradient: 3.76 mmHg Mean Gradient: 2 mmHg Deceleration Time: 148 msec Tissue Doppler E' Velocity: 0.05 m/s E/E':10 E/A Ratio: 0.91 E/Lat E': 10 E/Med E':16.5 Aortic Valve Area (continuity): 3.22 cm^2 Mean Velocity: 0.84 m/s Area (VTI):3.22 cm^2 Mean Gradient: 3 mmHg Peak Velocity: 1.19 m/s AV VTI: 17.4 cm Peak Gradient: 5.66 mmHg Tricuspid Valve Peak E-Wave: 0.51 m/s Peak Gradient: 1.08 mmHg Pulmonic Valve Peak Velocity: 1.13 m/s Mean Velocity: 0.78 m/s Peak Gradient: 5.11 mmHg Mean Gradient: 3 mmHg LVOT Peak Velocity: 0.91 m/s Mean Velocity: 0.61 m/s Peak Gradient: 3 mmHg Mean Gradient: 2 mmHg LVOT Diameter: 2.3 cm LVOT VTI: 13.5 cm Stroke Volume: 56 ml Stroke Volume Index: 23.63 ml/m^2 Structures Left Ventricle Diastolic Dimension: 5 cm Systolic Dimension: 4.1 cm Septum Diastolic: 1.4 cm PW Diastolic: 1.3 cm Systolic Length: 27 cm Diastolic Length: 35.5 cm CI: 2.27 l/min*m^2 EF Calculated: 38.29% CO: 5.38 l/min RWT: 0.52 LV EDV: 123 ml LV EDV Index: 52 m^2 FS: 18 % LV ESV: 75.9 ml LV Length: 9.42 cm LV ESV Index: 32 m^2 LVOT Diameter: 2.3 cm Global Longitudinal Strain:-7.4 Right Ventricle RVOT (PLAX) diameter:3 cm Tissue Doppler RV S': 14 TAPSE: 1.86 cm Left Atrium LA Systolic Pressure: 14.51 mmHg LA Area: 19.2 cm^2 LA Volume: 46.7 ml LA Index: 20ml/m^2 Right Atrium RA Area: 13.5 cm^2 Great Vessels Aorta Ascending Aorta: 3.6 cm Aorta Root:3.4 cm Ascending Aorta Index:1.52 cm/m^2 Vena Cava IVC Inspirium: 1.2 cm Contractility Score LV regional wall motion: (0-Not visualized 1-Normal 1'-Hyperkinesis 2-Hypokinesis 3-Akinesis 4-Dyskinesis 5-Aneurysm) Demographics Age 44 Gender Male Race Height 72.01 in. Weight 257.5 lbs. BMI (BSA) 34.92 kg/m^2 (2.37 m^2) Width [facility] Room 236-01 Interpreting Ariadna BURROUGHS Referring Physician Johanna Physician Procedure Note Johanna Rosenthal DO - 11/17/2024 Transthoracic Echocardiography Report (TTE) Patient name HALIMA REESE Neil LivingstonB. 1980 Patient ID (UPI) [id number] Indications: Congestive heart failure, Shortness of breath and Hypertension. Study Date11/17/2024 Technical quality: Good visualization Type of Study: TTE procedure: Adult Trans Thoracic Echo 2D Complete. Priority:RoutineHR: 96 bpmBP: 157/103 mmHg Conclusions Summary The left ventricle is normal in size. There is mild concentric left ventricular hypertrophy. LV function is moderately reduced with ejection fraction 38%. There is global hypokinesis. Grade I diastolic dysfunction. Average global longitudinal strain (GLS) -7.4%%, utilizing TOMT[employer] software, is abnormal. Normal right ventricular size and function. Normal atria. No hemodynamically significant valvular abnormalities. Findings Mitral Valve The mitral valve is normal. There is no evidence of mitral stenosis. There is no significant mitral regurgitation. Aortic Valve The aortic valve is trileaflet with normal leaflet excursion. There is no evidence of aortic valve stenosis. There is no significant aortic valve insufficiency. Tricuspid Valve The tricuspid valve is normal. There is no evidence of tricuspid stenosis. There is no significant tricuspid regurgitation. There is no evidence of pulmonary hypertension. Pulmonic Valve The pulmonic valve structure appears normal. There is no evidence of pulmonic stenosis. There is no significant pulmonic valve regurgitation. Left Atrium The left atrium size is normal. Left Ventricle The left ventricle is normal in size. There is mild concentric left ventricular hypertrophy. LV function is moderately reduced with ejection fraction 38%. There is global hypokinesis. Grade I diastolic dysfunction. Average global longitudinal strain (GLS) -7.4%%, utilizing TOM[employer] software, is abnormal. Right Atrium The right atrium size is normal. Right Ventricle Normal right ventricular cavity size and normal systolic function. Pericardial Effusion The pericardium is normal. There is no pericardial effusion visualized. Miscellaneous Aortic root and proximal ascending aorta are normal in size when indexed for BSA. Atrial septum appears intact. IVC is normal in size and respiratory response. Aortic arch appears normal. Valves Mitral Valve Peak E-Wave: 0.96 m/s Area (continuity): 2.4 cm^2 Peak A-Wave: 1.06 m/s Mean Velocity: 0.60 m/s Peak Gradient: 3.76 mmHg Mean Gradient: 2 mmHg Deceleration Time: 148 msec Tissue Doppler E' Velocity: 0.05 m/s E/E':10 E/A Ratio: 0.91 E/Lat E': 10 E/Med E':16.5 Aortic Valve Area (continuity): 3.22 cm^2 Mean Velocity: 0.84 m/s Area (VTI):3.22 cm^2 Mean Gradient: 3 mmHg Peak Velocity: 1.19 m/s AV VTI: 17.4 cm Peak Gradient: 5.66 mmHg Tricuspid Valve Peak E-Wave: 0.51 m/s Peak Gradient: 1.08 mmHg Pulmonic Valve Peak Velocity: 1.13 m/s Mean Velocity: 0.78 m/s Peak Gradient: 5.11 mmHg Mean Gradient: 3 mmHg LVOT Peak Velocity: 0.91 m/s Mean Velocity: 0.61 m/s Peak Gradient: 3 mmHg Mean Gradient: 2 mmHg LVOT Diameter: 2.3 cm LVOT VTI: 13.5 cm Stroke Volume: 56 ml Stroke Volume Index: 23.63 ml/m^2 Structures Left Ventricle Diastolic Dimension: 5 cm Systolic Dimension: 4.1 cm Septum Diastolic: 1.4 cm PW Diastolic: 1.3 cm Systolic Length: 27 cm Diastolic Length: 35.5 cm CI: 2.27 l/min*m^2 EF Calculated: 38.29% CO: 5.38 l/min RWT: 0.52 LV EDV: 123 ml LV EDV Index: 52 m^2 FS: 18 % LV ESV: 75.9 ml LV Length: 9.42 cm LV ESV Index: 32 m^2 LVOT Diameter: 2.3 cm Global Longitudinal Strain:-7.4 Right Ventricle RVOT (PLAX) diameter:3 cm Tissue Doppler RV S': 14 TAPSE: 1.86 cm Left Atrium LA Systolic Pressure: 14.51 mmHg LA Area: 19.2 cm^2 LA Volume: 46.7 ml LA Index: 20ml/m^2 Right Atrium RA Area: 13.5 cm^2 Great Vessels Aorta Ascending Aorta: 3.6 cm Aorta Root:3.4 cm Ascending Aorta Index:1.52 cm/m^2 Vena Cava IVC Inspirium: 1.2 cm Contractility Score LV regional wall motion: (0-Not visualized 1-Normal 1'-Hyperkinesis 2-Hypokinesis 3-Akinesis 4-Dyskinesis 5-Aneurysm) Demographics Age 44 Gender Male Race Height 72.01 in. Weight 257.5 lbs. BMI (BSA) 34.92 kg/m^2 (2.37 m^2) Width [facility] Room 236-01 Interpreting Rosenthal DO Referring Physician Johanna Physician us Vita Grider APRN, CNP IMG ECHO ORDERABLES Final Result * Culture, Blood (11/17/2024 1:34 AM CDT) Only the most recent of2 resultswithin the time period is included. CULTURE RESULTS NO GROWTH WITHIN 5 DAYS, FINAL RESULT 11/22/2024 2:01 AM CDT [facility] (Peripheral Vein) Venipuncture / Unknown 11/17/2024 1:34 AM CDT 11/17/2024 1:34 AM CDT us Vita Grider APRN, CNP MICROBIOLOGY - GENERAL OR DERABLES Final Result [facility] [address] [place] [address], * Magnesium (Mg) (11/17/2024 1:27 AM CDT) MAGNESIUM 1.8 1.6 - 2.6 mg/dL 11/17/2024 1:57 AM CDT [facility] Blood Venipuncture / Unknown 11/17/2024 1:27 AM CDT 11/17/2024 1:37 AM CDT us Vita Grider REGISTERED DIET TECHNICIAN, CLIENT FINANCE ANALYST CHEMISTRY ORDERABLES Eugenie l Result [facility] [place] [address] * (ABNORMAL) URINALYSIS REFLEX IF INDICATED BY ABNORMAL RESULTS (11/17/2024 1:16 AM CDT) SPECIFIC GRAVITY 1.015 1.003 - 1.030 11/17/2024 2:18 AM CDT [facility] URINE PH 6.0 5.0 - 9.0 11/17/2024 2:18 AM CDT [facility] WBC ESTERASE 25 /ul(A) Negative 11/17/2024 2:18 AM CDT [facility] NITRITE Negative Negative 11/17/2024 2:18 AM CDT [facility] PROTEIN, RANDOM URINE 100 mg/dL(A) Negative 11/17/2024 2:18 AM CDT [facility] URINE GLUCOSE, QUAL Negative Negative 11/17/2024 2:18 AM CDT [facility] URINE KETONES Negative Negative 11/17/2024 2:18 AM CDT [facility] UROBILINOGEN 1 mg/dL(A) Normal mg/dL 11/17/2024 2:18 AM CDT [facility] URINE BLOOD Negative Negative nhung/ul 11/17/2024 2:18 AM CDT [facility] URINALYSIS COLOR Yellow 11/18/19 2:18 AM CDT [facility] URINALYSIS CLARITY Slightly Cloudy 11/17/2024 2:18 AM CDT [facility] WBC (Urine) 51-150(A) Negative, 0-5 /hpf 11/17/2024 2:18 AM CDT [facility] URINE RBC'S Negative Negative, 0-2 /hpf 11/17/2024 2:18 AM CDT [facility] EPITHELIAL CELLS Negative /lpf 03/24/20 25 2:18 AM CDT [facility] BACTERIA, URINE Few(A) Negative /hpf 11/17/2024 2:18 AM CDT [facility] Urine URINE SPECIMEN OBTAINED BY CLEAN CATCH PROCEDURE / Unknown Non-Phlebotomy Collection / Unknown 11/17/2024 1:16 AM CDT 11/17/2024 1:37 AM CDT us Vita Grider APRN, CNP URINE ORDERABLES Final Re sult [facility] [place] [address] * Culture, Urine (11/17/2024 1:16 AM CDT) CULTURE RESULTS No growth final 11/18/2024 2:26 PM CDT [facility] Urine URINE SPECIMEN OBTAINED BY CLEAN CATCH PROCEDURE / Unknown Non-Phlebotomy Collection / Unknown 11/17/2024 1:16 AM CDT 11/17/2024 1:37 AM CDT Vita Grider APRN, CNP MICROBIOLOGY - GENERAL OR DERABLES Final Result Performing Organization Address City/[facility]/ZIP Co de Phone Number [facility] [address] [place] [address], [place] * (ABNORMAL) TROPONIN I, HIGH SENSITIVITY (HSTRP) (11/16/2024 6:36 PM CDT) Only the most recent of3 resultswithin the time period is included. TROPONIN I, HIGH SENSITIVITY- [place] 69(H) <=35 ng/L 11/16/2024 7:15 PM CDT [facility] Comment: High-sensitivity troponin I results are reported in ng/L making the result appear to be 1,000 times higher than the contemporary troponin I value which is reported in ng/ml. Results from [place]. Blood Venipuncture / Unknown 11/16/2024 6:36 PM CDT 11/16/2024 6:49 PM CDT us Figueroa Car MD CHEMISTRY ORDERABLES Eugenie l Result Performing Organization Address City/[facility] Co de Phone Number [facility] [place] [address] * (ABNORMAL) C-Reactive Protein (CRP) Quant (11/16/2024 6:36 PM CDT) C-REACTIVE PROTEIN 0.65(H) <0.50 mg/dL 11/17/2024 1:55 AM CDT [facility] Blood Venipuncture / Unknown 11/16/2024 6:36 PM CDT 11/16/2024 6:49 PM CDT Vita Grider APRN, CNP CHEMISTRY ORDERABLES Eugenie l Result Performing Organization Address City/[facility] Co de Phone Number [facility] [place] [address] * Critical Care (11/16/2024 6:13 PM CDT) Narrative Figueroa Car MD - 11/16/2024 6:13 PM CDT Figueroa Car MD 11/16/2024 7:29 PM Critical Care Performed by: Figueroa Car MD Authorized by: Figueroa Car MD Critical care provider statement: Critical care time (minutes): 35 Critical care time was exclusive of: Separately billable procedures and treating other patients Critical care was necessary to treat or prevent imminent or life-threatening deterioration of the following conditions: Cardiac failure Critical care was time spent personally by me on the following activities: Development of treatment plan with patient or surrogate, evaluation of patient's response to treatment, examination of patient, obtaining history from patient or surrogate, ordering and performing treatments and interventions, ordering and review of laboratory studies, ordering and review of radiographic studies, pulse oximetry, re-evaluation of patient's condition and review of old charts I assumed direction of critical care for this patient from another provider in my specialty: no Care discussed with: admitting provider Figueroa Car MD PROCEDURE/MINOR SURGICAL ORDERABLES Final Result * CT ANGIO CHEST W/WO CONTRAST WITH PP (POST PROCESSING) (11/16/2024 3:45 PM CDT) Anatomical Region Laterality Modality vascular N/A Computed Tomogra phy 11/16/2024 4:10 PM CDT Impressions 11/16/2024 4:12 PM CDT IMPRESSION: No acute pulmonary embolus. Lower lobe predominant interstitial pulmonary edema. New, 0.7 cm left upper lobe pulmonary nodule with surrounding ground-glass likely infectious/inflammatory. Atypical infection can not be excluded. Recommend clinical correlation for immunocompromised state. Recommend follow-up CT in 6-8 weeks status post treatment for further evaluation. Per Fleischner Society Guidelines, non-contrast chest CT at 6 to 12 months is recommended. If the nodule is stable at time of repeat CT, then future CT at 18 to 24 months (from todays scan) is considered optional for low-risk patients, but is recommended for high-risk patients. Widening of the periportal space which may be seen in the setting of hepatic cirrhosis. Narrative 11/16/2024 4:12 PM CDT EXAM DESCRIPTION: CT ANGIO CHEST W/WO CONTRAST WITH PP (POST PROCESSING) REASON FOR STUDY: SOB, intermittent cough x 1 week. Pt states he consumes a pint of ETOH daily. hx of HTN TECHNIQUE: CT angiogram of the chest performed with intravenous contrast using helical scanning technique with dynamic intravenous contrast injection. Reconstructed coronal and sagittal MPR images reviewed. All images stored on PACS. 3D MIP images rendered on scanning unit and reviewed at time of interpretation. Automated exposure control was used as a dose optimization technique for this examination. CONTRAST TYPE/DOSE: 100mL of IOPAMIDOL 76 % IV SOLN injected via Intravenous COMPARISON: 08/11/2018 FINDINGS: VASCULATURE: No acute pulmonary embolus. LUNGS: Interval resolution of left pleural effusion. There is lower lobe predominant interstitial pulmonary edema. New, 0.7 cm left upper lobe pulmonary nodule with surrounding ground-glass on image 112. No focal pneumonic consolidation. The central airways are patent. PLEURA: No pneumothorax. MEDIASTINUM/ALVA: Calcified mediastinal lymph nodes are most compatible with old healed granulomatous disease. Scattered prominent mediastinal lymph nodes, likely reactive. HEART: Mild cardiomegaly without pericardial effusion. AXILLA: No adenopathy. CHEST WALL: No masses. No subcutaneous air. HARDWARE/LINES/TUBES: None UPPER ABDOMEN: Widening of the periportal space which may be seen in the setting of hepatic cirrhosis. Recommend clinical correlation. MUSCULOSKELETAL: No significant abnormality. OTHER: No significant abnormality. THIS IS AN ELECTRONICALLY VERIFIED FINAL REPORT 11/16/2024 4:10 PM - Electronically signed by Hernan Maldonado M.D. BB: TRACIE Report ID: [id number] Reading Location: [id number] Procedure Note Hernan Maldonado MD - 11/16/2024 EXAM DESCRIPTION: CT ANGIO CHEST W/WO CONTRAST WITH PP (POST PROCESSING) REASON FOR STUDY: SOB, intermittent cough x 1 week. Pt states he consumes a pint of ETOH daily. hx of HTN TECHNIQUE: CT angiogram of the chest performed with intravenous contrast using helical scanning technique with dynamic intravenous contrast injection. Reconstructed coronal and sagittal MPR images reviewed. All images stored on PACS. 3D MIP images rendered on scanning unit and reviewed at time of interpretation. Automated exposure control was used as a dose optimization technique for this examination. CONTRAST TYPE/DOSE: 100mL of IOPAMIDOL 76 % IV SOLN injected via Intravenous COMPARISON: 08/11/2018 FINDINGS: VASCULATURE: No acute pulmonary embolus. LUNGS: Interval resolution of left pleural effusion. There is lower lobe predominant interstitial pulmonary edema. New, 0.7 cm left upper lobe pulmonary nodule with surrounding ground-glass on image 112. No focal pneumonic consolidation. The central airways are patent. PLEURA: No pneumothorax. MEDIASTINUM/ALVA: Calcified mediastinal lymph nodes are most compatible with old healed granulomatous disease. Scattered prominent mediastinal lymph nodes, likely reactive. HEART: Mild cardiomegaly without pericardial effusion. AXILLA: No adenopathy. CHEST WALL: No masses. No subcutaneous air. HARDWARE/LINES/TUBES: None UPPER ABDOMEN: Widening of the periportal space which may be seen in the setting of hepatic cirrhosis. Recommend clinical correlation. MUSCULOSKELETAL: No significant abnormality. OTHER: No significant abnormality. THIS IS AN ELECTRONICALLY VERIFIED FINAL REPORT 11/16/2024 4:10 PM - Electronically signed by Hernan Maldonado M.D. BB: TRACIE Report ID: [id number] Reading Location: [id number] IMPRESSION: No acute pulmonary embolus. Lower lobe predominant interstitial pulmonary edema. New, 0.7 cm left upper lobe pulmonary nodule with surrounding ground-glass likely infectious/inflammatory. Atypical infection can not be excluded. Recommend clinical correlation for immunocompromised state. Recommend follow-up CT in 6-8 weeks status post treatment for further evaluation. Per Fleischner Society Guidelines, non-contrast chest CT at 6 to 12 months is recommended. If the nodule is stable at time of repeat CT, then future CT at 18 to 24 months (from todays scan) is considered optional for low-risk patients, but is recommended for high-risk patients. Widening of the periportal space which may be seen in the setting of hepatic cirrhosis. Dee Wiggins MD IM CT ORDERABLES Final Resul t * XR CHEST 2 VIEWS (11/16/2024 2:53 PM CDT) Anatomical Region Laterality Modality Chest N/A Digital Radiogra phy 11/16/2024 3:09 PM CDT Impressions 11/16/2024 3:11 PM CDT IMPRESSION: 1. Mild central pulmonary vascular congestion and mild bibasilar atelectasis. Narrative 11/16/2024 3:11 PM CDT EXAM DESCRIPTION: XR CHEST 2 VIEWS REASON FOR STUDY: pt c/o SOB and occasionally dry cough x 1 week. hx of HTN, current smoker, daily ETOH usage TECHNIQUE: 2 radiographic view(s) of the chest. COMPARISON: 08/11/2018 FINDINGS: LUNGS: Mild central pulmonary vascular congestion and mild bibasilar atelectasis. No confluence pulmonary parenchymal consolidation. Blunting of left costophrenic angle either due to pleural scarring or trace pleural effusion. No pneumothorax. HEART/MEDIASTINUM: Cardiac silhouette normal in size. Calcified mediastinal lymph nodes due to old healed granulomatous disease. Mediastinal and hilar contours are otherwise normal. LINES/TUBES: None. BONES: No acute osseous abnormality. THIS IS AN ELECTRONICALLY VERIFIED FINAL REPORT 11/16/2024 3:09 PM - Electronically signed by Sudheer Summers M.D. AT: AT Report ID: [id number] Reading Location: [id number] Procedure Note Sudheer Summers MD - 11/16/2024 EXAM DESCRIPTION: XR CHEST 2 VIEWS REASON FOR STUDY: pt c/o SOB and occasionally dry cough x 1 week. hx of HTN, current smoker, daily ETOH usage TECHNIQUE: 2 radiographic view(s) of the chest. COMPARISON: 08/11/2018 FINDINGS: LUNGS: Mild central pulmonary vascular congestion and mild bibasilar atelectasis. No confluence pulmonary parenchymal consolidation. Blunting of left costophrenic angle either due to pleural scarring or trace pleural effusion. No pneumothorax. HEART/MEDIASTINUM: Cardiac silhouette normal in size. Calcified mediastinal lymph nodes due to old healed granulomatous disease. Mediastinal and hilar contours are otherwise normal. LINES/TUBES: None. BONES: No acute osseous abnormality. THIS IS AN ELECTRONICALLY VERIFIED FINAL REPORT 11/16/2024 3:09 PM - Electronically signed by Sudheer Summers M.D. AT: AT Report ID: [id number] Reading Location: [id number] IMPRESSION: 1. Mild central pulmonary vascular congestion and mild bibasilar atelectasis. Dee Wiggins MD IM DIAGNOSTIC ORDERABLES Fin al Result * Critical Care (11/16/2024 2:26 PM CDT) Narrative Dee Wiggins MD - 11/16/2024 2:26 PM CDT Dee Wiggins MD 11/16/2024 5:18 PM Critical Care Performed by: Dee Wiggins MD Authorized by: Dee Wiggins MD Critical care provider statement: Critical care time (minutes): 35 Critical care time was exclusive of: Separately billable procedures and treating other patients Critical care was necessary to treat or prevent imminent or life-threatening deterioration of the following conditions: Cardiac failure Critical care was time spent personally by me on the following activities: Development of treatment plan with patient or surrogate, evaluation of patient's response to treatment, examination of patient, ordering and performing treatments and interventions, ordering and review of laboratory studies, ordering and review of radiographic studies, pulse oximetry and re-evaluation of patient's condition Comments: IV lasix for CHF Dee Wiggins MD PROCEDURE/MINOR SURGICAL ORDE RABLES Final Result * (ABNORMAL) D-DIMER [id number] (11/16/2024 2:15 PM CDT) D DIMER 0.58(H) <0.50 mcg/mL FEU 11/16/2024 3:10 PM CDT [facility] Blood Venipuncture / Unknown 11/16/2024 2:15 PM CDT 11/16/2024 2:47 PM CDT Narrative [facility] - 11/16/2024 3:10 PM CDT The FDA has approved this method to exclude the diagnosis of DVT and/or PE at the cutoff value of <0.50 mcg/mL FEU. Dee Wiggins MD HEMATOLOGY ORDERABLES Final R esult [facility] [place] [address] * (ABNORMAL) Comprehensive Metabolic Panel (Cmp) [id number] (11/16/2024 2:15 PM CDT) Pathologist [facility] SODIUM 140 136 - 145 mmol/L 11/16/2024 3:11 PM CDT [facility] POTASSIUM 3.2(L) 3.5 - 5.1 mmol/L 11/16/2024 3:11 PM CDT [facility] CHLORIDE 108(H) 98 - 107 mmol/L 11/16/2024 3:11 PM CDT [facility] CO2, VENOUS 22 22 - 30 mmol/L 11/16/2024 3:11 PM CDT [facility] ANION GAP 13.2 <18.0 mmol/L 11/16/2024 3:11 PM CDT [facility] GLUCOSE 110(H) 70 - 99 mg/dL 11/16/2024 3:11 PM CDT [facility] BUN 8(L) 9 - 21 mg/dL 11/16/2024 3:11 PM CDT [facility] CREATININE, BLOOD 0.90 0.70 - 1.30 mg/dL 11/16/2024 3:11 PM CDT [facility] BUN/CREATININE RATIO 9(L) 12 - 20 ratio 11/16/2024 3:11 PM CDT [facility] TOTAL PROTEIN 7.1 6.0 - 8.0 g/dL 11/16/2024 3:11 PM CDT [facility] ALBUMIN 3.7 3.5 - 5.0 g/dL 11/16/2024 3:11 PM CDT [facility] A/G RATIO 1.1 1.0 - 2.2 11/16/2024 3:11 PM CDT [facility] CALCIUM 8.3(L) 8.7 - 10.5 mg/dL 11/16/2024 3:11 PM CDT [facility] T BILI 0.5 0.2 - 1.2 mg/dL 11/16/2024 3:11 PM CDT [facility] SGOT (AST) 71(H) <43 U/L 11/16/2024 3:11 PM CDT [facility] SGPT (ALT) 38 <56 U/L 11/16/2024 3:11 PM CDT [facility] ALKALINE PHOSPHATASE 76 40 - 150 U/L 11/16/2024 3:11 PM T [facility] GFR, ESTIMATED >60 >=60 11/16/2024 3:11 PM CDT [facility] Comment: Creatinine Clearance is the preferred criteria for selecting drug dose adjustments in renally impaired patients. The GFR is provided as additional pertinent clinical information. GFR is reported in mL/min/1.73 sq m. Calculation based on the Chronic Kidney Disease Epidemiology Collaboration (CKD- EPI) equation refit without adjustment for race. GFR, EST. >60 >=60 025 3:11 PM CDT [facility] GFR, EST. NONAFRICAN >60 >=60 11/16/2024 3:11 PM CDT [facility] Blood Venipuncture / Unknown 11/16/2024 2:15 PM CDT 11/16/2024 2:47 PM CDT Dee Wiggins MD CHEMISTRY ORDERABLES Final Re sult Performing Organization Address City/[facility]/ZIP Co de Phone Number [facility] [place] [address] * (ABNORMAL) B-Type Natriuretic Peptide (BNP) (11/16/2024 2:15 PM CDT) B TYPE NATRIURETIC PEPTIDE 309(H) <100 pg/mL 11/16/2024 3:44 PM CDT [facility] Blood Venipuncture / Unknown 11/16/2024 2:15 PM CDT 11/16/2024 2:47 PM CDT us Dee Wiggins MD CHEMISTRY ORDERABLES Final Re sult Performing Organization Address City/[facility]/ZIP Co de Phone Number [facility] [place] [address] * EKG 12 LEAD (11/16/2024 2:07 PM CDT) Ventricular Rate 110 BPM EXTERNAL EKG Atrial Rate 110 BPM EXTERNAL EKG P-R Interval 142 ms EXTERNAL EKG QRS Duration 96 ms EXTERNAL EKG Q-T Duration 374 ms EXTERNAL EKG QTC CALCULATION 506 ms EXTERNAL EKG P [place] 57 degrees EXTERNAL EKG R [place] 20 degrees EXTERNAL EKG T [place] 91 degrees EXTERNAL EKG 11/16/2024 2:07 PM CDT Impressions EXTERNAL EKG - 11/17/2024 11:27 PM CDT Sinus tachycardia Possible Left atrial enlargement Nonspecific T wave abnormality Prolonged QT Abnormal ECG When compared with ECG of 20-NOV-2017 14:55, PREVIOUS ECG IS PRESENT Confirmed by Johanna Rosenthal ([id number]) on 11/17/2024 11:27:55 PM Narrative Procedure Note Johanna Rosenthal DO - 11/17/2024 IMPRESSION: Sinus tachycardia Possible Left atrial enlargement Nonspecific T wave abnormality Prolonged QT Abnormal ECG When compared with ECG of 20-NOV-2017 14:55, PREVIOUS ECG IS PRESENT Confirmed by Johanna Rosenthal ([id number]) on 11/17/2024 11:27:55 PM us Dee Wiggins MD IMG ECG ORDERABLES Final Resu lt EXTERNAL EKG * EKG SCAN (11/16/2024 12:00 AM CDT) Only the most recent of2 resultswithin the time period is included. 11/16/2024 us Provider Scan IMG ECG ORDERABLES Final Result RESULTING AGENCY from Last 3 Months Advance Directives * Full Code (Latest Code Status on File) Date Activated Date Inactivated Comments 11/16/2024 11:46 PM CPR-Full Jonna tment: FULL ARREST: Attempt Resuscitation/CPR wit intubation and mechanical ventilation. PRE-ARREST: Use entire range of life support measures to stabilize the patient. Care Teams Construction Equipment Mechanic Helper Relationship Specialty Start Date End Date Anil Singh MD [address] [place] [id number] PCP - General Internal Medicine 08/11/18
--- OUTSIDE RECORDS SUMMARY | 2024-12-02 17:44 | XMS_ITS | Clinical Summary ---
Author Organization [facility] Virtual Care Address [address] [place] [id number] Phone Care Team Providers Care Lens Marker Name Role Phone Anil Singh MD Primary Care Provider [phone] Allergies Active Allergy Reactions Criticality Noted Date [...] . He has been in communication with [facility] as well as [facility] for treatment alcohol he is going [...] He is scheduled to start treatment with [facility] outpatient facility in the next 4 days.. [...] Patient has also been in contact with [facility] here in [place] Assessment & Plan (04/04/2024 5:15 PM CDT): Patient advised me they talk with treatment outpatient for alcohol abuse. Will allow him to do this. Patient advised me he will start outpatient at [facility] in [facility] next week. He plans to stop [...] clean. Assessment & Plan (11/02/2023 4:50 PM CONSERVATION OFFICER): Patient has been having recurrent boils over [...] he went to urgent care facility [facility] confirm the diagnosis and showed him how to reduce the hernia. Patient is given information from up-to-date today regarding hernias he is referred to surgery at [facility]. Inattention 10/26/2022 Assessment & Plan (10/26/2022 8:09 AM CONSERVATION OFFICER): Reportedly chronic problem, patient was reportedly previously [...] 09/28/2022 Assessment & Plan (10/26/2022 8:08 AM CONSERVATION OFFICER): Chronic problem, improved s/p starting bupropion Physical [...] annual Assessment & Plan (09/28/2022 7:24 AM CONSERVATION OFFICER): Chronic problem, recently exacerbated per patient report [...] 10/12/2018 Assessment & Plan (10/12/2018 6:13 PM CONSERVATION OFFICER): Patient admitted to hospital and transferred to [place] on 08/01/2018 final diagnosis empyema replacement of [...] therapy. Assessment & Plan (11/02/2023 4:53 PM CONSERVATION OFFICER): Patient has hypertension can be difficult to control he showed me some blood pressure readings from home been running [id number] systolic 100 diastolic. He has having a [...] months Assessment & Plan (10/26/2022 8:11 AM CONSERVATION OFFICER): Chronic problem, uncontrolled on current therapy, patient asymptomatic Physical examination as documented - no signs/symptoms of serious illness noted Recommended starting clonidine, which will also help with reported inattention/ADHD, as well as making lifestyle change - patient agreeable to plan Orders for [facility] to arrange Schedule 1 month follow [...] 03/24/2019. Assessment & Plan (10/12/2018 6:14 PM CONSERVATION OFFICER): . Pressure initially elevated 142/108 repeat 146/118. Patient given clonidine 0.1 mg blood pressure came down 130/90. Patient no distress no chest pain or shortness breath. Patient is given a prescription for clonidine a fall 1 month. Assessment & Plan (09/23/2018 10:30 AM CONSERVATION OFFICER): Hypertension is unchanged. Continue current treatment regimen. [...] hypertension October 2017 hematuria emergency room at [facility] the feeling dizzy that time in systolic [...] is paranoid schizophrenic in his in the snf. Patient admits he drinks on a daily [...] 03/25/2024 Assessment & Plan (09/28/2022 7:21 AM CONSERVATION OFFICER): Acute problem, present on and off for [...] 03/24/2019 Assessment & Plan (09/23/2018 10:33 AM CONSERVATION OFFICER): Patient admitted to [facility] 08/11/2018 initial diagnosis pleural effusion, discharge diagnosis empyema. Is negative for TB fungal bacteria or any malignancy. Patient has had a full recovery informs me he had a follow-up chest x-ray at [facility] since the fluid was taken off. Is no consequences from this infection at this time. Encounters Date Type Department Care Team Description 11/16/2024 1:50 PM CDT - 11/16/2024 11:59 PM CDT Hospital Encounter [facility] Emergency, Room R Discharge Disposition: Discharge to home or self care from Last 3 Months Immunizations Immunization Administration Dates Next Due Influenza, [...] on file Legal Sex Male 12:30 AM CONSERVATION OFFICER Gender Identity Not on file Sexual Orientation [...] <65 (1 of 2 - PCV) 2000 Depression Screening 04/24/2025 04/24/2024, 12/26/2021, 12/26/2021, Additional history exists Regular Well Visit/Exam 18-64 04/24/2025 04/24/2024, 12/26/2021, 05/28/2020, Additional history exists Influenza Vaccine (Season Ended) 2025 DTaP/Tdap/Td Vaccine (2 - Td or Tdap) 04/26/2034 04/26/2024 HPV Vaccines Aged Out No longer eligi ble based on patient's age to complete this topic Medical Devices Implanted Type Area Home Service Director Device Identifier Shelf Expiration Date Model / Serial / Lot [employer] Mesh Surgical Mid Anatomical Synthetic Patch 3dmax 4x6in [id number] - [id number] Implanted:Qty: 1 on 03/16/2023 by Fly Kaufman MD at [facility] Right: Inguinal [employer] Bard 12/23/2027 [id number] / / [id number] [employer] Mesh Surgical Inguinal Hernia Synthetic Patch 3dmax 4x6in [id number] - [id number] Implanted:Qty: 1 on 03/16/2023 by Fly Kaufman MD at [facility] Left: Inguinal [employer]/C [employer] Bard 08/23/2027 [id number] / / [id number] Insurance [facility] Advance Directives For more information, please contact: [phone] * Full Code (Latest Code Status on File) Date Activated Date Inactivated Comments 08/12/2018 12:23 AM 08/14/2018 5:11 PM Care Teams Lens Marker Relationship Specialty Start Date End Date Anil Singh MD PCP - General Internal Medicine 02/11/18
[2024-12-02 17:47] VITALS: BP 133/89; PULSE 103; RESP 16; TEMP 36.4; O2SAT 97
--- NOTE | 2024-12-02 17:52 | ED.DENTAL ---
HPI - Dental/Oral General Chief complaint: Dental/Oral Stated complaint: Toothache Time Seen by Provider: 12/02/24 17:53 Mode of arrival: ambulatory Limitations: no limitations History of Present Illness HPI Narrative: 44-year-old male presents with concern for right lower dental pain. Reports 1 week of pain. Reports he has a dentist appointment in 1 month. He denies any recent injury to his tooth. He denies fever problems swallowing MD Complaint: tooth pain Related Data Home Medications ?Medication ?Instructions ?Recorded ?Confirmed ?Last Taken ?Type Lasix 12/02/24 Unknown History losartan 50 mg tablet mg 12/02/24 Unknown History metoprolol succinate 100 mg mg PO 12/02/24 Unknown History tablet,extended release 24 hr spironolactone 25 mg tablet mg 12/02/24 Unknown History Allergies Allergy/AdvReac Type Severity Reaction Status Date / Time codeine AdvReac Unknown Nausea Verified 12/02/24 17:50 Review of Systems Review of Systems: CONSTITUTIONAL: Denies malaise, chills, sweats, or fever. EYES: Denies visual changes ENT: Denies rhinorrhea, congestion, sinus pain, otalgia or sore throat. Reports right lower dental pain CARDIOVASCULAR: Denies chest pain, palpitations RESPIRATORY: Denies cough or dyspnea. SKIN: Denies rash or itching. MUSCULOSKELETAL: Denies myalgia. NEUROLOGIC: Denies numbness, weakness, or headache. All systems reviewed & are unremarkable except as noted in HPI and below PMFSH Past Medical History Medical History Anxiety Fracture of jaw Hypertension Surgical History Surgical History H/O chest tube placement History of tonsillectomy Family History Family History Mother Family history non-contributory Social History Social History Smoking packs per day: 0.5 Smoking cigarettes per day: 10.0 Smoking status: Current every day smoker Tobacco type: cigarettes Alcohol intake: current Alcohol use details: social Substance use: never Living arrangements: with family Gender identity (if verbalized by the patient): Male Comments At time of signature, agree with nursing past medical, surgical, social and family history. There is no relevant family history pertinent to the presenting complaint Exam Narrative: GENERAL: Well-appearing, well-nourished, and in no acute distress. HEAD: Normocephalic, atraumatic. EYES: PERRLA, sclera clear ENT: Nares clear, turbinates pink, no rhinorrhea or epistaxis. Mucous membranes moist. TM pearly ball with sharp light reflex bilaterally; no tragal tenderness. Oropharynx without erythema or lesions. Tonsils not enlarged and without exudate. Missing teeth, broken teeth, caries, no jaw swelling noted NECK: Supple. No lymphadenopathy. CHEST: No respiratory distress. Speaks in full sentences. HEART: Regular rate and rhythm. SKIN: Warm, dry, no visible rash. NEURO: Alert and oriented x3. PSYCH: Normal mood and affect Course Course Emergency Course: Patient is aware of diagnosis, understands and agrees to treatment plan. Anticipatory guidance given. Patient agrees to follow-up as directed and is aware of reasons to seek care at the emergency department. Portions of this record may have been created with voice recognition software Level of Care: Express Care Visit Vital Signs Vital signs: Reviewed. MDM - Dental/Oral MDM Narrative Medical decision making narrative: I evaluated this in the express care. History is obtained from patient who is an independent historian and physical exam was performed.? Available medical records were reviewed. ? Exam findings and relevant testing show no acute concerns or changes; patient is non-toxic appearing and is in no distress. Patients pain and complaint coupled with physical findings are consistant with dentalgia. There are no focal signs of space occupying lesions that are compromising to the airway; no dysphagia, odynophagia, dysphonia, or dyspnea. No uvular deviation or soft palate edema. Patient is non-toxic appearing. The floor of the mouth is soft with no signs of Keaton's Angina; no induration below mandible, no neck pain. Patient is without trismus or drooling and able to swallow secretions. Patient is felt appropriate for discharge home with dental follow up. ? Differential diagnosis and treatment plan were discussed with the patient. Patient agrees with discussion and after shared medical decision making agrees with plan of care. All questions were answered to the patient's satisfaction. Patient is appropriate for outpatient treatment and follow-up. Differential Diagnosis Differential diagnosis: Likely gingival abscess, dental caries, toothache, dental abscess, fracture of tooth and aphthous ulcer Critical Care Time Critical Care Time Critical Care Time: No Discharge Plan Discharge Clinical Impression: Toothache Patient Disposition: Home Condition: Stable Instructions: Antibiotic Form, Toothache (ED) Additional Instructions: Take antibiotic as directed Avoid temperature extremes May apply heat or ice to the face Gentle brushing and flossing Take 2 extra strength Tylenol, 4 ibuprofen, 80 mg of caffeine at same time. You can do this every 6 hours. Do not do this for more than 2 - 3 days. You can substitute 25 mg Benadryl at nighttime for caffeine to help you sleep. Do this for no more than 3 days. Follow-up with the dentist as soon as possible - see the list provided Patient Language: Luxembourgish Prescriptions: New clindamycin HCl 300 mg capsule 300 mg PO Q8H 7 Days Qty: 21 0RF ibuprofen 800 mg tablet 800 mg PO Q6H PRN (Reason: pain) Qty: 30 0RF No Action losartan 50 mg tablet metoprolol succinate 100 mg tablet extended release 24 hr PO spironolactone 25 mg tablet Lasix Follow-up/Referrals: Samantha,Anil Allen MD [Primary Care Provider] - Time of Disposition: 18:00
== END 2024-12-02 18:05 | disposition home or self-care (01) ==
PROVIDERS: Emergency Provider Nurse Practitioner; PCP Internal Medicine
DX: K08.89 Other specified disorders of teeth and supporting structures (principal); F17.210 Nicotine dependence, cigarettes, uncomplicated; I10 Essential (primary) hypertension
CPT/HCPCS: 99213; G0463

== ENCOUNTER 2025-06-07 15:58 | Emergency (ER) | payer SELFPAY ==
--- NOTE | 2025-06-07 15:59 | ED_ITS ---
HPI - Skin/Abscess/Foreign Bdy General Chief complaint: Skin/Abscess/Foreign Body Stated complaint: Skin Sore Time Seen by Provider: 06/07/25 15:58 Source: patient Mode of arrival: ambulatory Limitations: no limitations History of Present Illness HPI narrative: Grayson is a 45-year-old male patient presenting to the clinic today with complaints of skin sores x 1 week to his hands, legs, and arms. He reports he has had this before was placed on clindamycin and that took care of the infection. Denies any fevers, chills, body aches. Does have lower extremity swelling-recently was in the hospital for congestive heart failure and a blood clot in his arm. He denies any shortness of breath or chest pain. Related Data Home Medications ?Medication ?Instructions ?Recorded ?Confirmed ?Last Taken ?Type Lasix 12/02/24 Unknown History losartan 50 mg tablet mg 12/02/24 Unknown History metoprolol succinate 100 mg mg PO 12/02/24 Unknown Hi story tablet,extended release 24 hr spironolactone 25 mg tablet mg 12/02/24 Unknown Histo ry chlordiazepoxide HCl 25 mg capsule mg 06/07/25 Unknow n History clonidine HCl 0.1 mg tablet mg 06/07/25 Unknown Histo ry tadalafil 10 mg tablet mg 06/07/25 Unknown History valsartan 320 tablet 06/07/25 Unknown His tory mg-hydrochlorothiazide 12.5 mg tablet Allergies Allergy/AdvReac Type Severity Reaction Status Date / Time codeine AdvReac Unknown Nausea Verified 12/02/24 17:50 Review of Systems Review of Systems: Pertinent positives per HPI. Patient denies any fever, chills, rash, headache, visual changes, dizziness, cough, runny nose, sore throat, shortness of breath, chest pain, palpitations, nausea, vomiting, diarrhea, constipation, abdominal pain, or any urinary issues. [facility] Past Medical History Medical History Anxiety Fracture of jaw Hypertension Surgical History Surgical History H/O chest tube placement History of tonsillectomy Family History Family History Mother Family history non-contributory Social History Social History Smoking packs per day: 0.5 Smoking cigarettes per day: 10.0 Smoking status: Current every day smoker Tobacco type: cigarettes Alcohol intake: current Alcohol use details: social Substance use: never Living arrangements: with family Gender identity (if verbalized by the patient): Male Comments At the time of my signature, I reviewed and agree with the nursing past medical, surgical, social, and family history. There is no relevant family history pertinent to the patient complaint. Exam Narrative: General: Well-developed, obese, in no apparent distress Head: Normocephalic, atraumatic. Cardio: Regular rate and rhythm, s1 and s2 normal, no murmur appreciated. Resp: Clear to auscultation bilaterally, no rhonchi, rales, wheezing or rubs. Musculoskeletal: No deformity, non-tender to palpation, grossly normal range of motion, muscle strength strong and equal, peripheral pulse strong, 1+ pitting edema bilateral lower extremities, dark pigmented scaly skin- venous insufficiency skin changes to the lower extremities, no cyanosis, normal gait and station Integumentary: [place], warm, and dry, circular skin sores to the hands, arms, and legs-none of the sores are actively draining. States the areas are tender to touch. No induration or palpable abscess. Course Course Emergency Course: Portions of this record may have been created with voice recognition software. Level of Care: Express Care Visit Vital Signs Vital signs: Vital Signs Temperature 36.2 C L 06/07/25 16:04 Pulse Rate 85 06/07/25 16:04 Respiratory Rate 18 06/07/25 16:04 Blood Pressure 140/78 06/07/25 16:04 Pulse Oximetry 99 06/07/25 16:04 Oxygen Delivery Room Air 06/07/25 16:04 Temperature 36.2 C L 06/07/25 16:04 Pulse Rate 85 06/07/25 16:04 Respiratory Rate 18 06/07/25 16:04 Blood Pressure 140/78 06/07/25 16:04 Pulse Oximetry 99 06/07/25 16:04 Oxygen Delivery Room Air 06/07/25 16:04 Vital signs reviewed MDM - Skin/Abscess/Foreign Bdy MDM Narrative Medical decision making narrative: At the time of visit patient is resting comfortably on the exam table. Patient appears to be nontoxic. Complaints of skin sores x 1 week to his hands, legs, and arms. He reports he has had this before was placed on clindamycin and that took care of the infection. Denies any fevers, chills, body aches. Does have lower extremity swelling-recently was in the hospital for congestive heart f ailure and a blood clot in his arm. He denies any shortness of breath or chest pain. On exam patient has circular skin sores to the hands, arms, and legs-none of the sores are actively draining. States the areas are tender to touch. No induration or palpable abscess. Lower extremities with 1+ pitting edema-dark pigmented scaly skin- venous insufficiency skin changes to the lower extremities. Lung sounds are clear and heart rates regular rate and rhythm Plan: I suspect patient has bacterial skin infection-possibly venous stasis ulcers on the lower extremities. Prescription for clindamycin and mupirocin cream was sent to the pharmacy. Recommend follow-up with PCP in 5-7 days. Supportive measures were discussed with the patient and they voiced understanding discharge instructions and agrees to treatment plan. Return precautions reviewed Differential Diagnosis Differential diagnosis: Likely abscess of skin or subcutaneous tissue, viral exanthem, dermatophytosis, urticaria, herpes zoster, allergic reaction to drug, cellulitis, eczema, insect bites, impetigo and contact dermatitis Discharge Plan Discharge Clinical Impression: Bacterial infection of skin Patient Disposition: Home Condition: Stable Instructions: Antibiotic Form, Acute Wounds (ED) Additional Instructions: Keep areas clean and dry Take clindamycin as prescribed Apply mupirocin cream as directed Avoid picking at the sores Wash daily with soap and water pat dry May take Tylenol/Motrin as needed for pain or fever Follow-up with your PCP in 3-5 days for wound check Patient Language: Ivorian Prescriptions: New clindamycin HCl [Cleocin HCl] 300 mg capsule 300 mg PO TID 7 Days Qty: 21 0RF mupirocin [Centany] 2 % ointment 1 applic topical BID 7 Days Qty: 22 1RF No Action losartan 50 mg tablet metoprolol succinate 100 mg tablet extended release 24 hr PO spironolactone 25 mg tablet Lasix ibuprofen 800 mg tablet 800 mg PO Q6H PRN (Reason: pain) Qty: 30 0RF clonidine HCl 0.1 mg tablet chlordiazepoxide HCl 25 mg capsule tadalafil 10 mg tablet valsartan-hydrochlorothiazide 320-12.5 mg tablet Follow-up/Referrals: Samantha,Anil Allen MD [Primary Care Provider, Unknown] Time of Disposition: 16:17 Quality NIHSS Nursing Documentation ED NIHSS nursing documentation: reviewed/agree
--- OUTSIDE RECORDS SUMMARY | 2025-06-07 16:00 | XMS_ITS | Clinical Summary ---
Author Organization [facility] Virtual Care Address [address] [place] [phone] Phone Care Team Providers Care Act English Tutor Name Role Phone Anil Singh MD Primary Care Provider [phone] Allergies Active Allergy Reactions Criticality Noted Date Comments Codeine Nausea only Low 12/15/2021 Lisinopril Cough Low 03/24/2019 Medications acetaminophen 500 mg capsule Take 2 capsules (1,000 mg total) by mouth every 6 (six) hours. 30 tablet 8 Active omeprazole (PriLOSEC) 40 mg capsule TAKE 1 CAPSULE BY MOUTH EVERY DAY 90 capsule 3 Active valsartan-hydroc hlorothiazide (DIOVAN-HCT) 320-12.5 mg per tablet Take 1 tablet by mouth daily 90 tablet 4 Active cloNIDine (CATAPRES) 0.1 mg tabletIndication s:Essential hypertension Take 1 tablet (0.1 mg total) by mouth 2 (two) times a day 180 tablet 1 4 Active amLODIPine (NORVASC) 5 mg tabletIndication s:Essential hypertension Take 1 tablet (5 mg total) by mouth daily 30 tablet 4 Active albuterol HFA (PROVENTIL HFA,VENTOLIN HFA,PROAIR HFA) 90 mcg/actuation inhaler Inhale 2 puffs every 6 (six) hours as needed for wheezing 3 each 4 4 Active furosemide (LASIX) 40 mg tabletIndication s:Edema Take 1 tablet (40 mg total) by mouth daily as needed (for edema) Active apixaban (ELIQUIS) 5 mg tabletIndication s:deep venous thrombosis Take 2 tablets (10 mg total) by mouth 2 (two) times a day for 5 days, THEN 1 tablet (5 mg total) 2 (two) times a day. 186 tablet 5 08/07/20 25 Active thiamine (VITAMIN B1) 100 mg tabletIndication s:Thiamine Deficiency Take 1 tablet (100 mg total) by mouth daily for 1 dose 1 tablet 5 Active metoprolol XL (TOPROL-XL) 25 mg extended release tablet Take 1 tablet (25 mg total) by mouth daily 30 tablet 11 5 05/11/20 26 Active chlordiazePOXIDE (LIBRIUM) 25 mg capsule Take 1 capsule (25 mg total) by mouth 3 (three) times a day as needed for anxiety for up to 5 days 15 capsule 5 Active lisinopril-hydro CHLOROthiazide (ZESTORETIC) 20-25 mg per tablet TAKE 1 TABLET BY MOUTH EVERY DAY 90 tablet 2 0 10/26/19 23 Discontinu ed(Dose adjustment ) doxycycline (VIBRAMYCIN) 100 mg capsule Take 1 tablet/capsu le (100 mg total) by mouth 2 (two) times a day for 5 days 10 tablet/capsu le 5 05/16/20 25 Active Problems Problem Noted Date Diagnosed Date Cellulitis of right upper extremity 05/08/2025 Skin infection 06/27/2024 Pruritic dermatitis 06/27/2024 Acute [...] . He has been in communication with [place] as well as [place] facilities for treatment alcohol he is going to AA meetings.. Written to his employer stating he [...] scheduled to start treatment with [facility] outpatient facility in the next 4 days.. [...] Patient has also been in contact with [facility] here in [place] Assessment & Plan (04/04/2024 5:15 PM CDT): Patient advised me they talk with treatment outpatient for alcohol abuse. Will allow him to do this. Patient advised me he will start outpatient at [facility] in [facility] next week. He plans to stop [...] clean. Assessment & Plan (11/02/2023 4:50 PM INTERNAL CONTROL CONSULTANT): Patient has been having recurrent boils over [...] hernias he is referred to surgery at [facility]. Inattention 10/26/2022 Assessment & Plan (10/26/2022 8:09 AM INTERNAL CONTROL CONSULTANT): Reportedly chronic problem, patient was reportedly previously [...] inattention, blood pressure follow up Orders for Hugh Henriquez to arrange FOR BLOOD PRESSURE AND [...] 09/28/2022 Assessment & Plan (10/26/2022 8:08 AM INTERNAL CONTROL CONSULTANT): Chronic problem, improved s/p starting bupropion Physical [...] inattention, blood pressure follow up Orders for Hugh Henriquez to arrange FOR MOOD: Continue bupropion and escitalopram for mood Continue relaxation techniques as needed Eat well, rest well Continue going to [employer] through work program Decrease alcohol intake Continue [...] annual Assessment & Plan (09/28/2022 7:24 AM INTERNAL CONTROL CONSULTANT): Chronic problem, recently exacerbated per patient report due to losing father and taking on increased care responsibility of mother Physical examination as documented - no signs/symptoms of serious illness noted Recommended adding bupropion, decreasing alcohol intake, continuing counseling and making other lifestyle modifications - patient agreeable to plan Orders for [facility] STAFF to arrange 4 week follow up - mood, anxiety/depression Orders for Hugh Henriquez to arrange FOR MOOD: Start bupropion [...] 10/12/2018 Assessment & Plan (10/12/2018 6:13 PM INTERNAL CONTROL CONSULTANT): Patient admitted to hospital and transferred to [facility] on 08/01/2018 final diagnosis empyema replacement of [...] therapy. Assessment & Plan (11/02/2023 4:53 PM INTERNAL CONTROL CONSULTANT): Patient has hypertension can be difficult to control he showed me some blood pressure readings from home been running [id number] systolic 100 diastolic. He has having a [...] months Assessment & Plan (10/26/2022 8:11 AM INTERNAL CONTROL CONSULTANT): Chronic problem, uncontrolled on current therapy, patient asymptomatic Physical examination as documented - no signs/symptoms of serious illness noted Recommended starting clonidine, which will also help with reported inattention/ADHD, as well as making lifestyle change - patient agreeable to plan Orders for [facility] STAFF to arrange Schedule 1 month follow up with me - mood, inattention, blood pressure follow up Orders for Hugh Henriquez to arrange FOR BLOOD PRESSURE AND [...] 03/24/2019. Assessment & Plan (10/12/2018 6:14 PM INTERNAL CONTROL CONSULTANT): . Pressure initially elevated 142/108 repeat 146/118. Patient given clonidine 0.1 mg blood pressure came down 130/90. Patient no distress no chest pain or shortness breath. Patient is given a prescription for clonidine a fall 1 month. Assessment & Plan (09/23/2018 10:30 AM INTERNAL CONTROL CONSULTANT): Hypertension is unchanged. Continue current treatment regimen. [...] hypertension October 2017 hematuria emergency room at [facility] the feeling dizzy that time in systolic [...] is paranoid schizophrenic in his in the assisted. Patient admits he drinks on a daily [...] 03/25/2024 Assessment & Plan (09/28/2022 7:21 AM INTERNAL CONTROL CONSULTANT): Acute problem, present on and off for a little bit Physical examination as documented - no signs/symptoms of serious illness noted Suspect uncontrolled diffuse periodontal disease with likely acute infection Recommended antibiotics and following up with dentist as scheduled - patient agreeable to plan Orders for AMS STAFF to arrange 4 week follow up - mood, anxiety/depression Orders for Hugh Henriquez to arrange FOR TOOTH: Start Augmentin [...] 03/24/2019 Assessment & Plan (09/23/2018 10:33 AM INTERNAL CONTROL CONSULTANT): Patient admitted to [facility] 08/11/2018 initial diagnosis pleural effusion, discharge diagnosis empyema. Is negative for TB fungal bacteria or any malignancy. Patient has had a full recovery informs me he had a follow-up chest x-ray at [facility] since the fluid was taken off. Is no consequences from this infection at this time. Encounters Date Type Department Care Team Description 05/12/2025 [facility] Post Discharge Follow up phone call [address] [address] Lisseth Rico RN 05/10/2025 Documentation [facility] Warm Hand Off Program [address] [place], [place] [phone] DelgadoMartha seo 05/09/2025 Documentation [facility] Warm Hand Off [facility] [address] [place], [place] [phone] DelgadoMartha 05/08/2025 7:53 PM CDT - 05/11/2025 1:18 PM CDT Hospital Encounter [address] [address] Suly Chong MD Davis, MD Monica Cavanaugh II, Narine, MD Cellulitis of right upper extremity (Primary Dx) Discharge Disposition: Discharge to home or self [...] Date Smoking Tobacco: Every Day Cigarettes 1 20.8 Started: 2004 Passive Smoke Exposure: Current Smokeless [...] making you feel afraid or unsafe? Denies 05/08/2025 Sex and Gender Information Value Date Recorded Sex Assigned at Not on file Legal Sex Male 12:30 AM INTERNAL CONTROL CONSULTANT Gender Identity Not on file Sexual Orientation Not on file Obstetrics History Last Filed Vital Signs Vital Sign Reading Time Taken Comments Blood Pressure 132/84 05/11/2025 7:54 AM CDT Pulse 94 05/11/2025 7:54 AM CDT Temperature 36.7 C (98.1 F) 05/11/2025 7:54 AM CDT Respiratory Rate 16 05/11/2025 7:54 AM CDT Oxygen Saturation 98% 05/11/2025 7:54 AM CDT Inhaled Oxygen Concentration - - Weight 127.7 kg (281 lb 8.4 oz) 05/11/2025 6:00 AM CDT Height 180.3 cm (5' 11) 05/08/2025 11: 03 PM CDT Body Mass Index 39.27 05/08/2025 11:03 PM CDT Plan of Treatment Health Maintenance Due Date Last Done Comments Varicella Vaccines (1 of 2 - 13+ 2-dose series) 1994 Hepatitis B Screening 1999 Pneumococcal vaccine <65 (1 of 2 - PCV) 2000 HPV Vaccines (1 - 3-dose SCD M series) 2008 Depression Screening 04/24/2025 04/24/2024, 12/26/2021, 12/26/2021, Additional history exists Regular Well Visit/Exam 18-64 04/24/2025, 12/26/2021, 05/28/2020, Additional history exists Influenza Vaccine (#1) 2025 DTaP/Tdap/Td Vaccine (2 - Td or Tdap) 04/26/2034 04/26/2024 Hepatitis C Screening Completed 05/09/2025 Medical Devices Implanted Type Area Fish Cleaner Machine Tender Device Identifier Shelf Expiration Date Model / Serial / Lot [employer]/C R Bard Mesh Surgical Mid Anatomical Synthetic Patch 3dmax 4x6in [id number] - [id number] Implanted:Qty: 1 on 03/16/2023 by Fly Kaufman MD at [facility] Right: Inguinal [employer] Bard 12/23/2027 [id number] / / [id number] [employer] Bard Mesh Surgical Inguinal Hernia Synthetic Patch 3dmax 4x6in [id number] - [id number] Implanted:Qty: 1 on 03/16/2023 by Fly Kaufman MD at [facility] Left: Inguinal [employer] Bard 08/23/2027 [id number] / / [id number] Procedures Procedure Name Priority Date/Time Associated Diagnosis Comments POCT GLUCOSE DEVICE Routine 05/11/2025 1 1:33 AM CDT POCT GLUCOSE DEVICE Routine 05/11/2025 8 :11 AM CDT EGFR Routine 05/11/2025 5:30 AM CDT DIFFERENTIAL AUTO Routine 05/11/2025 5:3 0 AM CDT CBC WITH AUTO DIFFERENTIAL Routine 05/11/2025 5:30 AM CDT COMPREHENSIVE METABOLIC PANEL Routine 05/11/2025 5:30 AM CDT POCT GLUCOSE DEVICE Routine 05/11/2025 2 :30 AM CDT POCT GLUCOSE DEVICE Routine 05/10/2025 7 :56 PM CDT POCT GLUCOSE DEVICE Routine 05/10/2025 4 :50 PM CDT POCT GLUCOSE DEVICE Routine 05/10/2025 1 1:46 AM CDT CHOLESTEROL, LDL, DIRECT Routine 05/10/2025 10:32 AM CDT EGFR Routine 05/10/2025 10:32 AM CDT DIFFERENTIAL AUTO Routine 05/10/2025 10: 32 AM CDT VANCOMYCIN LEVEL TROUGH Timed 05/10/2025 10:32 AM CDT LIPID PANEL Routine 05/10/2025 10:32 AM CDT CBC WITH AUTO DIFFERENTIAL Routine 05/10/2025 10:32 AM CDT COMPREHENSIVE METABOLIC PANEL Routine 05/10/2025 10:32 AM CDT POCT GLUCOSE DEVICE Routine 05/10/2025 8 :07 AM CDT POCT GLUCOSE DEVICE Routine 05/10/2025 2 :35 AM CDT POCT GLUCOSE DEVICE Routine 05/09/2025 8 :17 PM CDT POCT GLUCOSE DEVICE Routine 05/09/2025 5 :28 PM CDT US RUQ ED 05/09/2025 11:42 AM CDT US VEIN DUPLEX UPPER EXTREMITY RIGHT LIMITED ED 05/09/2025 11:40 AM CDT SEPSIS LACTATE WITH REFLEX Timed 05/09/2025 6:58 AM CDT EGFR Routine 05/09/2025 3:52 AM CDT DIFFERENTIAL AUTO Routine 05/09/2025 3:5 2 AM CDT CBC WITH AUTO DIFFERENTIAL Routine 05/09/2025 3:52 AM CDT MAGNESIUM Routine 05/09/2025 3:52 AM CDT COMPREHENSIVE METABOLIC PANEL Routine 05/09/2025 3:52 AM CDT AMMONIA Add-On 05/09/2025 3:52 AM CDT HEMOGLOBIN A1C Routine 05/09/2025 3:52 AM CDT SEPSIS LACTATE WITH REFLEX Routine 05/09/2025 3:52 AM CDT ETHANOL Routine 05/09/2025 3:52 AM CDT D-DIMER, QUANTITATIVE Routine 05/09/2025 3:52 AM CDT HEPATITIS PANEL, ACUTE Routine 05/09/2025 3:52 AM CDT AMPHETAMINE, URINE, CONFIRMATION Routine 05/09/2025 3:30 AM CDT BENZODIAZEPINE CONFIRMATION BY MS Routine 05/09/2025 3:30 AM CDT DRUGS OF ABUSE SCREEN, URINE WITH REFLEX CONFIRMATION Routine 05/09/2025 3:30 AM CDT URINALYSIS, MICROSCOPIC ONLY STAT 05/09/2025 3:25 AM CDT URINE CULTURE STAT 05/09/2025 3:25 AM CDT URINALYSIS AND REFLEX TO MICROSCOPIC AND CULTURE STAT 05/09/2025 3:[address] CHEST ABDOMEN PELVIS WO CONTRAST ED Urgent/IP Urgent 05/08/2025 11:22 PM CDT TROPONIN T HIGH-SENSITIVITY 2-HOUR Timed 05/08/2025 8:18 PM CDT BLOOD CULTURE Routine 05/08/2025 8:18 PM CDT BLOOD CULTURE Routine 05/08/2025 8:18 PM CDT XR CHEST 1 VIEW ED 05/08/2025 6:15 PM CDT LIPASE Add-On 05/08/2025 6:08 PM CDT MAGNESIUM Add-On 05/08/2025 6:08 PM CDT EGFR STAT 05/08/2025 6:08 PM CDT DIFFERENTIAL AUTO STAT 05/08/2025 6:0 8 PM CDT TROPONIN T HIGH-SENSITIVITY SERIES (BASELINE, 2HR, 4HR, 6HR) STAT 05/08/2025 6:08 PM CDT COMPREHENSIVE METABOLIC PANEL STAT 05/08/2025 6:08 PM CDT PRO B-TYPE NATRIURETIC PEPTIDE STAT 05/08/2025 6:08 PM CDT CBC WITH AUTO DIFFERENTIAL STAT 05/08/2025 6:08 PM CDT ECG 12-LEAD STAT 05/08/2025 6:05 PM CDT from Last 3 Months Results * POCT glucose (05/11/2025 11:33 AM CDT) [facility] Signature Glucose, POC 128 70 - 199 mg/dL Blood 05/11/2025 11:3 3 AM CDT 05/11/2025 11:33 AM CDT Blaine Carlos Toure II, MD LAB POCT ORDERABLES - DEVICE Final Result Performing Organization Address City/State/[facility] Co de Phone Number [facility] ([place]) 1 [facility] [place] [address] * POCT glucose (05/11/2025 8:11 AM CDT) Glucose, POC 141 70 - 199 mg/dL Blood 05/11/2025 8:11 AM CDT 05/11/2025 8:11 AM CDT us Blaine Toure II, MD LAB POCT ORDERABLES - DEVICE Final Result Performing Organization Address [facility] Co de Phone Number [facility] ([place]) 1 [place] [address] * eGFR (05/11/2025 5:30 AM CDT) [facility] eGFR >90 >=60 mL/min/1. 73 m2 Comment: Interpretive Data Reference Interval Normal >/= 90 mL/min/1.73m2 Mildly decreased* 60 - 89 mL/min/1.73m2 Mildly to moderately decreased 45 - 59 mL/min/1.73m2 Moderately to severely decreased 30 - 44 mL/min/1.73m2 Severely decreased 15 - 29 mL/min/1.73m2 Kidney Failure < 15 mL/min/1.73m2 *Relative to young adult level Estimated glomerular filtration rate is determined by the 2020 CKD-EPI equation recommended by the National Kidney Foundation (A Unifying Approach to GFR Estimation: Recommendations of the NKF-ASK Task Force on Reassessing the Inclusion of Race in Diagnosing Kidney Disease, JASN 2020). The CKD-EPI equation should not be used for patients with unstable renal function and has not been validated in children and those over 70. Current interpretive data was last reviewed 2021. Blood 05/11/2025 5:30 AM CDT 05/11/2025 6:15 AM CDT us Suly Chong MD LAB BLOOD ORDERABLES Fi nal Result [facility] ([place]) 1 [facility] Department [place] [address] * Differential, auto (05/11/2025 5:30 AM CDT) Neutrophil abs 6.21 1.50 - 6.50 K/cumm Imm gran abs 0.10 0.00 - 0.10 K/cumm [facility] ([place]) Lymphocyte abs 1.90 0.80 - 3.30 K/cumm [facility] ([place]) Monocyte abs 0.65 0.20 - 0.80 K/cumm [facility] ([place]) Eosinophil abs 0.20 0.00 - 0.50 K/cumm [facility] ([place]) Basophil abs 0.06 0.00 - 0.10 K/cumm [facility] ([place]) Neutrophil pct 68.1 % [facility] ([place]) Comment: Interpretive Data Percent cell count reference ranges are not reported, since discordance with absolute values may lead to misinterpretation of CBC data. Current Interpretive Data was last revised on 2017. Imm gran pct 1.1 % [facility] ([place]) Comment: Interpretive Data Percent cell count reference ranges are not reported, since discordance with absolute values may lead to misinterpretation of CBC data. Current Interpretive Data was last revised on 2017. Lymphocyte pct 20.8 % [facility] ([place]) Comment: Interpretive Data Percent cell count reference ranges are not reported, since discordance with absolute values may lead to misinterpretation of CBC data. Current Interpretive Data was last revised on 2017. Monocyte pct 7.1 % [facility] ([place]) Comment: Interpretive Data Percent cell count reference ranges are not reported, since discordance with absolute values may lead to misinterpretation of CBC data. Current Interpretive Data was last revised on 2017. Eosinophil pct 2.2 % [facility] ([place]) Comment: Interpretive Data Percent cell count reference ranges are not reported, since discordance with absolute values may lead to misinterpretation of CBC data. Current Interpretive Data was last revised on 2017. Basophil pct 0.7 % [facility] ([place]) Comment: Interpretive Data Percent cell count reference ranges are not reported, since discordance with absolute values may lead to misinterpretation of CBC data. Current Interpretive Data was last revised on 2017. Blood 05/11/2025 5:30 AM CDT 05/11/2025 6:15 AM CDT us Blaine Toure II, MD LAB BLOOD ORDERABLES F inal Result Performing Organization Address City/[facility]/ZIP Co de Phone Number [facility] ([place]) 1 [facility] Department [place] [address] * (ABNORMAL) CBC with auto differential (05/11/2025 5:30 AM CDT) WBC 9.12 3.80 - 9.90 K/cumm Hgb 13.0 13.0 - 17.5 g/dL [facility] ([place]) Hct 38.5(L) 38.9 - 50.3 % [facility] ([place]) Plt 238 150 - 400 K/cumm [facility] ([place]) MPV 9.9 9.1 - 12.3 fL [facility] ([place]) RBC 3.47(L) 4.30 - 5.80 M/cumm [facility] ([place]) MCV 111.0(H) 81.3 - 96.4 fL [facility] ([place]) MCH 37.5(H) 27.1 - 33.3 pg [facility] ([place]) MCHC 33.8 32.3 - 35.7 g/dL [facility] ([place]) RDW CV 15.9(H) 11.1 - 14.9 % [facility] ([place]) RDW SD 65.4(H) 35.7 - 48.1 fL [facility] ([place]) NRBC abs 0.00 0.00 - 0.01 K/cumm [facility] ([place]) Blood 05/11/2025 5:30 AM CDT 05/11/2025 6:15 AM CDT us Blaine Toure II, MD LAB BLOOD ORDERABLES F inal Result Performing Organization Address City/[facility]/ZIP Co de Phone Number [facility] ([place]) 1 [facility] Department [place] [address] * (ABNORMAL) Comprehensive metabolic panel (05/11/2025 5:30 AM CDT) Sodium 134(L) 135 - 145 mmol/L [facility] ([place]) Potassium, pl 4.4 3.3 - 4.9 mmol/L [facility] ([place]) Chloride 103 97 - 110 mmol/L [facility] ([place]) CO2 20(L) 22 - 32 mmol/L [facility] ([place]) Anion gap 11 2 - 15 mmol/L [facility] ([place]) BUN 12 6 - 25 mg/dL [facility] ([place]) Creatinine 0.96 0.80 - 1.30 mg/dL [facility] ([place]) Glucose 133 70 - 199 mg/dL [facility] ([place]) Comment: Interpretive Data Fasting glucose >/= 126 mg/dl is diagnostic for diabetes. Fasting is defined as no caloric intake for at least 8 hours. Fasting glucose between 100 mg/dl to 125 mg/dl is diagnostic of prediabetes. In a patient with classic symptoms of hyperglycemia or hyperglycemic crisis, a random glucose >/= 200 mg/dl is diagnostic for diabetes. In the absence of unequivocal hyperglycemia, results should be confirmed by repeat testing. The classification and Diagnosis of Diabetes Diabetes Care 202; 46: S19-S40. Current interpretive data was last revised 2022. Calcium 9.3 8.5 - 10.3 mg/dL [facility] ([place]) Bilirubin, total 0.9 0.1 - 1.2 mg/dL [facility] ([place]) Protein, pl 6.7 6.5 - 8.5 g/dL [facility] ([place]) Albumin 3.6 3.5 - 5.0 g/dL [facility] ([place]) Alk phos 135(H) 40 - 130 Units/L [facility] ([place]) ALT 60(H) 7 - 55 Units/L [facility] ([place]) AST 90(H) 10 - 50 Units/L [facility] ([place]) Comment:Hemolysis present. R esults may be affected. Blood 05/11/2025 5:30 AM CDT 05/11/2025 6:15 AM CDT us Suly Chong MD LAB BLOOD ORDERABLES Fi nal Result [facility] ([place]) 1 [facility] [place] [address] * POCT glucose (05/11/2025 2:30 AM CDT) Glucose, POC 133 70 - 199 mg/dL Comment:Glu2: RN/ Notified Blood 05/11/2025 2:30 AM CDT 05/11/2025 2:30 AM CDT us Blaine Toure II, MD LAB POCT ORDERABLES - DEVICE Final Result Performing Organization Address [facility] Co de Phone Number [facility] ([place]) 1 [facility] [place] [address] * POCT glucose (05/10/2025 7:56 PM CDT) Glucose, POC 149 70 - 199 mg/dL Comment:Glu2: RN/ Notified Blood 05/10/2025 7:56 PM CDT 05/10/2025 7:56 PM CDT us Blaine Toure II, MD LAB POCT ORDERABLES - DEVICE Final Result Performing Organization Address City/[facility]/ZIP Co de Phone Number [facility] ([place]) 1 [facility] [place] [address] * POCT glucose (05/10/2025 4:50 PM CDT) Glucose, POC 143 70 - 199 mg/dL Blood 05/10/2025 4:50 PM CDT 05/10/2025 4:50 PM CDT us Blaine Toure II, MD LAB POCT ORDERABLES - DEVICE Final Result Performing Organization Address City/[facility]/ZIP Co de Phone Number [facility] ([place]) 1 [facility] [place] [address] * POCT glucose (05/10/2025 11:46 AM CDT) Glucose, POC 124 70 - 199 mg/dL Blood 05/10/2025 11:4 6 AM CDT 05/10/2025 11:46 AM CDT us Blaine Toure II, MD LAB POCT ORDERABLES - DEVICE Final Result Performing Organization Address [facility] de Phone Number YARIT[facility] WELLS ([place]) 1 [facility] [place] [address] * eGFR (05/10/2025 10:32 AM CDT) eGFR 84 >=60 mL/min/1. 73 m2 Comment: Interpretive Data Reference Interval Normal >/= 90 mL/min/1.73m2 Mildly decreased* 60 - 89 mL/min/1.73m2 Mildly to moderately decreased 45 - 59 mL/min/1.73m2 Moderately to severely decreased 30 - 44 mL/min/1.73m2 Severely decreased 15 - 29 mL/min/1.73m2 Kidney Failure < 15 mL/min/1.73m2 *Relative to young adult level Estimated glomerular filtration rate is determined by the 2020 CKD-EPI equation recommended by the National Kidney Foundation (A Unifying Approach to GFR Estimation: Recommendations of the NKF-ASK Task Force on Reassessing the Inclusion of Race in Diagnosing Kidney Disease, JASN 2020). The CKD-EPI equation should not be used for patients with unstable renal function and has not been validated in children and those over 70. Current interpretive data was last reviewed 2021. Blood 05/10/2025 10:3 2 AM CDT 05/10/2025 10:42 AM CDT us Suly Chong MD LAB BLOOD ORDERABLES Fi nal Result [facility] ([place]) 1 [facility] Department [place] [address] * Differential, auto (05/10/2025 10:32 AM CDT) Neutrophil abs 6.16 1.50 - 6.50 K/cumm Imm gran abs 0.06 0.00 - 0.10 K/cumm [facility] ([place]) Lymphocyte abs 1.95 0.80 - 3.30 K/cumm [facility] ([place]) Monocyte abs 0.73 0.20 - 0.80 K/cumm [facility] ([place]) Eosinophil abs 0.20 0.00 - 0.50 K/cumm [facility] ([place]) Basophil abs 0.08 0.00 - 0.10 K/cumm [facility] ([place]) Neutrophil pct 67.0 % [facility] ([place]) Comment: Interpretive Data Percent cell count reference ranges are not reported, since discordance with absolute values may lead to misinterpretation of CBC data. Current Interpretive Data was last revised on 2017. Imm gran pct 0.7 % [facility] ([place]) Comment: Interpretive Data Percent cell count reference ranges are not reported, since discordance with absolute values may lead to misinterpretation of CBC data. Current Interpretive Data was last revised on 2017. Lymphocyte pct 21.2 % [facility] ([place]) Comment: Interpretive Data Percent cell count reference ranges are not reported, since discordance with absolute values may lead to misinterpretation of CBC data. Current Interpretive Data was last revised on 2017. Monocyte pct 8.0 % [facility] ([place]) Comment: Interpretive Data Percent cell count reference ranges are not reported, since discordance with absolute values may lead to misinterpretation of CBC data. Current Interpretive Data was last revised on 2017. Eosinophil pct 2.2 % [facility] ([place]) Comment: Interpretive Data Percent cell count reference ranges are not reported, since discordance with absolute values may lead to misinterpretation of CBC data. Current Interpretive Data was last revised on 2017. Basophil pct 0.9 % [facility] ([place]) Comment: Interpretive Data Percent cell count reference ranges are not reported, since discordance with absolute values may lead to misinterpretation of CBC data. Current Interpretive Data was last revised on 2017. Blood 05/10/2025 10:3 2 AM CDT 05/10/2025 10:42 AM CDT Blaine Toure II, MD LAB BLOOD ORDERABLES F inal Result [facility] ([place]) 1 [facility] Department [place] [address] * (ABNORMAL) CBC with auto differential (05/10/2025 10:32 AM CDT) WBC 9.18 3.80 - 9.90 K/cumm Hgb 13.2 13.0 - 17.5 g/dL [facility] ([place]) Hct 38.7(L) 38.9 - 50.3 % [facility] ([place]) Plt 222 150 - 400 K/cumm [facility] ([place]) MPV 9.5 9.1 - 12.3 fL [facility] ([place]) RBC 3.46(L) 4.30 - 5.80 M/cumm [facility] ([place]) MCV 111.8(H) 81.3 - 96.4 fL [facility] ([place]) MCH 38.2(H) 27.1 - 33.3 pg [facility] ([place]) MCHC 34.1 32.3 - 35.7 g/dL [facility] ([place]) RDW CV 16.5(H) 11.1 - 14.9 % [facility] ([place]) RDW SD 68.8(H) 35.7 - 48.1 fL [facility] ([place]) NRBC abs 0.00 0.00 - 0.01 K/cumm [facility] ([place]) Blood 05/10/2025 10:3 2 AM CDT 05/10/2025 10:42 AM CDT Blaine Toure II, MD LAB BLOOD ORDERABLES F inal Result Performing Organization Address [facility]/ZIP Co de Phone Number YARITZA WELLS ([place]) 1 [facility] [place] [address] * Cholesterol, LDL, direct (05/10/2025 10:32 AM CDT) LDL Cholesterol, Direct 74 <=129 mg/dL Comment: Interpretive Data Ages < or = 19 years Acceptable: <110 mg/dL Borderline high: 110-129 mg/dL High: >or= 130 mg/dL Ages > or = 20 years Optimal: <100 mg/dL Near optimal: 100-129 mg/dL Borderline high: 130-159 mg/dL High: >160 mg/dL Literature References: 1. Expert Panel on Integrated Guidelines for Cardiovascular Health and Risk Reduction in Children and Adolescents. Pediatrics 2011;128:S213 2. NCEP Expert Panel. Circulation 2004;110:227 Current Interpretive Data was last revised on 2018. Testing performed by: [facility], [address] [place] [address]., [id number] Blood 05/10/2025 10:3 2 AM CDT 05/10/2025 1:22 PM CDT Narrative YARITZA WELLS ([place]HAO) - 05/10/2025 1:44 PM CDT Cholesterol, LDL, direct reflexed based on Elevated Triglyceride (>400) us Blaine Toure II, MD LAB BLOOD ORDERABLES F inal Result Performing Organization Address [facility]/ZIP Co de Phone Number YARITZA WELLS ([place]) 1 [facility] [place] [address] * Vancomycin level trough (05/10/2025 10:32 AM CDT) Vancomycin trough 14.6 10.0 - 20.0 mcg/mL YARITZA WELLS ([place]) Blood 05/10/2025 10:3 2 AM CDT 05/10/2025 10:42 AM CDT Narrative YARITZA WELLS ([place]) - 05/10/2025 11:19 AM CDT Unable to obtain. TRAV Barton notified us Suly Chong MD LAB BLOOD ORDERABLES Fi nal Result YARITZA WELLS ([place]) 1 [facility] Department [place] [address] * (ABNORMAL) Lipid panel (05/10/2025 10:32 AM CDT) Cholesterol 155 30 - 199 mg/dL YARITZA WELLS ([place]) Comment: Interpretive Data Ages < or = 19 years Acceptable: <170 mg/dL Borderline high: 170-199 mg/dL High: >or= 200 mg/dL Ages > or = 20 years Desirable: <200 mg/dL Borderline high: 200-239 mg/dL High: >or= 240 mg/dL Literature References: 1. Expert Panel on Integrated Guidelines for Cardiovascular Health and Risk Reduction in Children and Adolescents. Pediatrics 2011;128:S213 2. NCEP Expert Panel. Circulation 2004;110:227 Current Interpretive Data was last revised on 2018. Triglycerides 401(H) <=149 mg/dL YARITZA WELLS ([place]) Comment: Interpretive Data Ages < or = 9 years Acceptable: <75 mg/dL Borderline high: 75-99 mg/dL High: >or= 100 mg/dL Ages 10 to 20 years Acceptable: <90 mg/dL Borderline high: 90-129 mg/dL High: >or= 130 mg/dL Ages > or = 20 years Desirable: <150 mg/dL Borderline high: 150-199 mg/dL High: 200-499 mg/dL Very high: >or= 499 mg/dL Literature References: 1. Expert Panel on Integrated Guidelines for Cardiovascular Health and Risk Reduction in Children and Adolescents. Pediatrics 2011;128:S213 2. NCEP Expert Panel. Circulation 2004;110:227 Current Interpretive Data was last revised on 2018. HDL 13(L) >=40 mg/dL YARITZA WELLS ([place]) Comment: Interpretive Data Ages < or = 19 years Acceptable: >45 mg/dL Borderline low: 40-45 mg/dL Low: <40 mg/dL Ages > or = 20 years Desirable: >or= 60 mg/dL Low: <40 mg/dL Literature References: 1. Expert Panel on Integrated Guidelines for Cardiovascular Health and Risk Reduction in Children and Adolescents. Pediatrics 2011;128:S213 2. NCEP Expert Panel. Circulation 2004;110:227 Current Interpretive Data was last revised on 2018. LDL, calculated See Comment <=129 mg/dL YARITZA WELLS ([place]) Comment: Unable to calculate due to elevated Triglycerides. Interpretive Data Ages < or = 19 years Acceptable: <110 mg/dL Borderline high: 110-129 mg/dL High: >or= 130 mg/dL Ages > or = 20 years Optimal: <100 mg/dL Near optimal: 100-129 mg/dL Borderline high: 130-159 mg/dL High: >160 mg/dL Calculated using the Edmund LDL-C estimating equation. This equation was implemented on 2024. Prior to this date LDL-C was estimated using the Friedewald equation. Literature References: 1. Expert Panel on Integrated Guidelines for Cardiovascular Health and Risk Reduction in Children and Adolescents. Pediatrics 2011;128:S213 2. NCEP Expert Panel. Circulation 2004;110:227 3. Edmund Mccormack et al. AILEEN Cardiol. 2019December 25;5(5):540-548. doi: 10.1001/jamacardio.2020.0013 Current Interpretive Data was last revised on 2024. Testing performed by: [place], [address] Non-HDL Cholesterol 142 mg/dL YARITZA WELLS ([place]) Comment: Interpretive Data Ages < or = 19 years Acceptable: <120 mg/dL Borderline high: 120-144 mg/dL High: >145 mg/dL Ages > or = 20 years When triglycerides are >200 mg/dL, Non-HDL cholesterol is a secondary target of therapy with treatment goals that are 30 mg/dL greater than the LDL cholesterol target. Literature References: 1. Expert Panel on Integrated Guidelines for Cardiovascular Health and Risk Reduction in Children and Adolescents. Pediatrics 2011;128:S213 2. NCEP Expert Panel. Circulation 2004;110:227 Current Interpretive Data was last revised on 2018. Testing performed by: [place], [address] Chol/HDL ratio 12 CERNE R RUSSELL ([place]ISE) Comment:Testing performed by : [place], [address] Blood 05/10/2025 10:3 2 AM CDT 05/10/2025 10:42 AM CDT Blaine Toure II, MD LAB BLOOD ORDERABLES F inal Result [facility] ([place]) 1 [facility] Department [place] [address] * (ABNORMAL) Comprehensive metabolic panel (05/10/2025 10:32 AM CDT) Sodium 133(L) 135 - 145 mmol/L [facility] ([place]) Potassium, pl 4.1 3.3 - 4.9 mmol/L [facility] ([place]) Chloride 100 97 - 110 mmol/L [facility] ([place]) CO2 23 22 - 32 mmol/L [facility] ([place]) Anion gap 10 2 - 15 mmol/L [facility] ([place]) BUN 12 6 - 25 mg/dL [facility] ([place]) Creatinine 1.11 0.80 - 1.30 mg/dL [facility] ([place]) Glucose 164 70 - 199 mg/dL [facility] ([place]) Comment: Interpretive Data Fasting glucose >/= 126 mg/dl is diagnostic for diabetes. Fasting is defined as no caloric intake for at least 8 hours. Fasting glucose between 100 mg/dl to 125 mg/dl is diagnostic of prediabetes. In a patient with classic symptoms of hyperglycemia or hyperglycemic crisis, a random glucose >/= 200 mg/dl is diagnostic for diabetes. In the absence of unequivocal hyperglycemia, results should be confirmed by repeat testing. The classification and Diagnosis of Diabetes Diabetes Care 2021; 46: S19-S40. Current interpretive data was last revised 2022. Calcium 9.5 8.5 - 10.3 mg/dL [facility] ([place]) Bilirubin, total 1.4(H) 0.1 - 1.2 mg/dL [facility] ([place]) Protein, pl 6.8 6.5 - 8.5 g/dL [facility] ([place]) Albumin 3.7 3.5 - 5.0 g/dL [facility] ([place]) Alk phos 143(H) 40 - 130 Units/L [facility] ([place]) ALT 69(H) 7 - 55 Units/L [facility] ([place]) AST 98(H) 10 - 50 Units/L [facility] ([place]) Blood 05/10/2025 10:3 2 AM CDT 05/10/2025 10:42 AM CDT us Suly Chong MD LAB BLOOD ORDERABLES Fi nal Result YARITZA WELLS ([place]) 1 [facility] [place] [address] * POCT glucose (05/10/2025 8:07 AM CDT) Glucose, POC 131 70 - 199 mg/dL Blood 05/10/2025 8:07 AM CDT 05/10/2025 8:07 AM CDT us Blaine Toure II, MD LAB POCT ORDERABLES - DEVICE Final Result Performing Organization Address [facility] de Phone Number YARITZA WELLS ([place]) 1 [facility] [place] [address] * POCT glucose (05/10/2025 2:35 AM CDT) Glucose, POC 130 70 - 199 mg/dL Blood 05/10/2025 2:35 AM CDT 05/10/2025 2:35 AM CDT Blaine Toure II, MD LAB POCT ORDERABLES - DEVICE Final Result Performing Organization Address City/[facility] Co de Phone Number YARITZA WELLS ([place]) 1 [facility] [place] [address] * POCT glucose (05/09/2025 8:17 PM CDT) Glucose, POC 136 70 - 199 mg/dL Blood 05/09/2025 8:17 PM CDT 05/09/2025 8:17 PM CDT us Blaine Toure II, MD LAB POCT ORDERABLES - DEVICE Final Result Performing Organization Address City/[facility]/ZIP Co de Phone Number YARITZA COX) 1 [facility] [place] [address] * POCT glucose (05/09/2025 5:28 PM CDT) Glucose, POC 164 70 - 199 mg/dL Blood 05/09/2025 5:28 PM CDT 05/09/2025 5:28 PM CDT us Blaine Toure II, MD LAB POCT ORDERABLES - DEVICE Final Result Performing Organization Address [facility] de Phone Number YARITZA WELLS BOISE) 1 [facility] [place] [address] * US RUQ (05/09/2025 11:42 AM CDT) Anatomical Region Laterality Modality Abdomen N/A Ultrasound 05/09/2025 11:4 7 AM CDT Narrative 05/09/2025 11:50 AM CDT EXAM DESCRIPTION: US RUQ REASON FOR STUDY: elevated liver enzymes TECHNIQUE: Ultrasound of the right upper quadrant of the abdomen was performed with grayscale and color doppler. COMPARISON: CT abdomen and pelvis dated 05/08/2025. FINDINGS: PANCREAS: Not seen due to overlapping bowel. LIVER: Portions of the liver is obscured by overlapping shadows. The remainder of the liver has heterogeneously increased echotexture with diminished true transmission limiting evaluation for underlying space-occupying lesion. Maximum provided dimensions of 21.8 cm is likely underestimated due to imaging technique. The main portal vein is patent with antegrade flow. GALLBLADDER: No gallstones. The gallbladder wall measures up to 0.2 cm. No positive sonographic [place] sign reported. BILIARY: The common bile duct measures 0.5 cm in diameter. RIGHT KIDNEY: Measures up to 11.5 x 6.5 x 3.8 cm. No obstructive uropathy. According to the fiber technologist PACS note technically difficult exam due to large body habitus. IMPRESSION: 1. Hepatomegaly. Heterogeneously increased echotexture of the liver as can be seen with hepatocellular disease. Please correlate with laboratory data. 2. No gallstone or secondary sonographic evidence for acute cholecystitis. THIS IS AN ELECTRONICALLY VERIFIED FINAL REPORT 05/09/2025 11:50 AM - Electronically signed by Jitendra Lott D.O. AP: AP Report ID: [id number] Reading Location: [place] [address] Procedure Note Jitendra Lott, DO - 05/09/2025 EXAM DESCRIPTION: US RUQ REASON FOR STUDY: elevated liver enzymes TECHNIQUE: Ultrasound of the right upper quadrant of the abdomen wasperformed with grayscale and color doppler. COMPARISON: CT abdomen and pelvis dated 05/08/2025. FINDINGS: PANCREAS: Not seen due to overlapping bowel. LIVER: Portions of the liver is obscured by overlapping shadows. The remainder of the liver has heterogeneously increased echotexture with diminished true transmission limiting evaluation for underlying space-occupying lesion. Maximum provided dimensions of 21.8 cm is likely underestimated due to imaging technique. The main portal vein is patentwith antegrade flow. GALLBLADDER: No gallstones. The gallbladder wall measures up to 0.2 cm.No positive sonographic [place] sign reported. BILIARY: The common bile duct measures 0.5 cm in diameter. RIGHT KIDNEY: Measures up to 11.5 x 6.5 x 3.8 cm. No obstructiveuropathy. According to the fiber technologist PACS note technically difficultexam due to large body habitus. IMPRESSION: 1. Hepatomegaly. Heterogeneously increased echotexture of the liver ascan be seen with hepatocellular disease. Please correlate with laboratorydata. 2. No gallstone or secondary sonographic evidence for acutecholecystitis. THIS IS AN ELECTRONICALLY VERIFIED FINAL REPORT 05/09/2025 11:50 AM - Electronically signed by Jitendra Lott D.O. AP: AP Report ID: [id number] Reading Location: [id number] us Suly Baldemar Chong MD IMG US PROCEDURES Final Result * US Vein Duplex Upper Extremity Right Limited, Unilateral (05/09/2025 11:40 AM CDT) Anatomical Region Laterality Modality Vascular Right Ultrasound 05/09/2025 11:4 4 AM CDT Narrative 05/09/2025 11:51 AM CDT EXAM DESCRIPTION: US VEIN DUPLEX UPPER EXTREMITY RIGHT LIMITED, UNILATERAL HISTORY: pain swelling. Right upper extremity pain/swelling after IV in March 2025. TECHNIQUE: Duplex scan was performed using B-mode, spectral Doppler and color-flow Doppler imaging of the right upper extremity was performed utilizing real-time ultrasonography. COMPARISON: None available. FINDINGS: The right jugular vein and subclavian veins are patent. Partially occluding thrombus in the right axillary vein. The brachial vein is patent. There is an occluding thrombus involving the basilic vein. The cephalic vein is patent. IMPRESSION: 1. Deep venous thrombosis involving the right axillary vein. 2. Superficial thrombophlebitis involving the basilic vein. The above findings discussed with the patient's nurse Ms. Lara RN via telephone by me Dr. Serg Lott on 05/09/2025 at 11:46 am central standard time. THIS IS AN ELECTRONICALLY VERIFIED FINAL REPORT 05/09/2025 11:51 AM - Electronically signed by Jitendra Lott D.O. AP: AP Report ID: [id number] Reading Location: [id number] Procedure Note Jitendra Lott, DO - 05/09/2025 EXAM DESCRIPTION: US VEIN DUPLEX UPPER EXTREMITY RIGHT LIMITED,UNILATERAL HISTORY: pain swelling. Right upper extremity pain/swelling after IV in March 2025. TECHNIQUE: Duplex scan was performed using B-mode, spectral Doppler and color-flow Doppler imaging of the right upper extremity was performed utilizing real-time ultrasonography. COMPARISON: None available. FINDINGS: The right jugular vein and subclavian veins are patent. Partiallyoccluding thrombus in the right axillary vein. The brachial vein is patent. Thereis an occluding thrombus involving the basilic vein. The cephalic vein is patent. IMPRESSION: 1. Deep venous thrombosis involving the right axillary vein. 2. Superficial thrombophlebitis involving the basilic vein. The above findings discussed with the patient's nurse Ms. Lara RN via telephone by nh Dr. Serg Lott on 05/09/2025 at 11:46 am central standardtime. THIS IS AN ELECTRONICALLY VERIFIED FINAL REPORT 05/09/2025 11:51 AM - Electronically signed by Jitendra Lott D.O. AP: AP Report ID: [id number] Reading Location: [place] [address] Suly Chong MD IMG US PROCEDURES Final Result * Sepsis Lactate w/ Reflex (05/09/2025 6:58 AM CDT) Sepsis Lactate 1.9 0.7 - 2.0 mmol/L Blood 05/09/2025 6:58 AM CDT 05/09/2025 7:03 AM CDT Suly Chong MD LAB BLOOD ORDERABLES Fi nal Result Performing Organization Address City/[facility]/ZIP Co de Phone Number YARITZA RUSSELL ([place]) 1 [facility] [place] [address] * (ABNORMAL) Sepsis Lactate w/ Reflex (05/09/2025 3:52 AM CDT) Sepsis Lactate 2.9(H) 0.7 - 2.0 mmol/L Blood 05/09/2025 3:52 AM CDT 05/09/2025 4:03 AM CDT Suly Chong MD LAB BLOOD ORDERABLES Fi nal Result YARITZA WELLS ([place]) 1 [facility] Department [place] [address] * eGFR (05/09/2025 3:52 AM CDT) Pathologist [facility] eGFR >90 >=60 mL/min/1. 73 m2 Comment: Interpretive Data Reference Interval Normal >/= 90 mL/min/1.73m2 Mildly decreased* 60 - 89 mL/min/1.73m2 Mildly to moderately decreased 45 - 59 mL/min/1.73m2 Moderately to severely decreased 30 - 44 mL/min/1.73m2 Severely decreased 15 - 29 mL/min/1.73m2 Kidney Failure < 15 mL/min/1.73m2 *Relative to young adult level Estimated glomerular filtration rate is determined by the 2020 CKD-EPI equation recommended by the National Kidney Foundation (A Unifying Approach to GFR Estimation: Recommendations of the NKF-ASK Task Force on Reassessing the Inclusion of Race in Diagnosing Kidney Disease, JASN 2020). The CKD-EPI equation should not be used for patients with unstable renal function and has not been validated in children and those over 70. Current interpretive data was last reviewed 2021. Blood 05/09/2025 3:52 AM CDT 05/09/2025 4:16 AM CDT us Suly Chong MD LAB BLOOD ORDERABLES Fi nal Result [facility] ([place]) 1 [facility] Department [place] [address] * Differential, auto (05/09/2025 3:52 AM CDT) Neutrophil abs 5.59 1.50 - 6.50 K/cumm Imm gran abs 0.04 0.00 - 0.10 K/cumm [facility] ([place]) Lymphocyte abs 1.90 0.80 - 3.30 K/cumm [facility] ([place]) Monocyte abs 0.61 0.20 - 0.80 K/cumm [facility] ([place]) Eosinophil abs 0.17 0.00 - 0.50 K/cumm [facility] ([place]) Basophil abs 0.05 0.00 - 0.10 K/cumm [facility] ([place]) Neutrophil pct 66.9 % [facility] ([place]) Comment: Interpretive Data Percent cell count reference ranges are not reported, since discordance with absolute values may lead to misinterpretation of CBC data. Current Interpretive Data was last revised on 2017. Imm gran pct 0.5 % [facility] ([place]) Comment: Interpretive Data Percent cell count reference ranges are not reported, since discordance with absolute values may lead to misinterpretation of CBC data. Current Interpretive Data was last revised on 2017. Lymphocyte pct 22.7 % [facility] ([place]) Comment: Interpretive Data Percent cell count reference ranges are not reported, since discordance with absolute values may lead to misinterpretation of CBC data. Current Interpretive Data was last revised on 2017. Monocyte pct 7.3 % [facility] ([place]) Comment: Interpretive Data Percent cell count reference ranges are not reported, since discordance with absolute values may lead to misinterpretation of CBC data. Current Interpretive Data was last revised on 2017. Eosinophil pct 2.0 % [facility] ([place]) Comment: Interpretive Data Percent cell count reference ranges are not reported, since discordance with absolute values may lead to misinterpretation of CBC data. Current Interpretive Data was last revised on 2017. Basophil pct 0.6 % [facility] ([place]) Comment: Interpretive Data Percent cell count reference ranges are not reported, since discordance with absolute values may lead to misinterpretation of CBC data. Current Interpretive Data was last revised on 2017. Blood 05/09/2025 3:52 AM CDT 05/09/2025 4:16 AM CDT us Suly Chong MD LAB BLOOD ORDERABLES Fi nal Result YARITZA WELLS ([place]) 1 [facility] Department [place] [address] * (ABNORMAL) CBC with auto differential (05/09/2025 3:52 AM CDT) WBC 8.36 3.80 - 9.90 K/cumm Hgb 13.6 13.0 - 17.5 g/dL [facility] Hct 40.3 38.9 - 50.3 % [facility] ([place]) Plt 255 150 - 400 K/cumm [facility] ([place]) MPV 9.6 9.1 - 12.[address] [facility] RBC 3.62(L) 4.30 - 5.80 M/cumm [facility] ([place]) MCV 111.3(H) 81.3 - 96.4 fL [facility] ([place]) MCH 37.6(H) 27.1 - 33.3 pg [facility] ([place]) MCHC 33.7 32.3 - 35.7 g/dL [facility] ([place]) RDW CV 16.4(H) 11.1 - 14.9 % [facility] RDW SD 67.5(H) 35.7 - 48.[address] [facility] ([place]) NRBC abs 0.00 0.00 - 0.01 K/cumm [facility] Blood 05/09/2025 3:52 AM CDT 05/09/2025 4:16 AM CDT us Suly Chong MD LAB BLOOD ORDERABLES Fi nal Result [facility] ([place] 1 [facility] Department [place] [address] * Hepatitis panel, acute Blood (05/09/2025 3:52 AM CDT) Pathologist [facility] Hep A IgM Nonreactive Nonreactive Comment: Interpretive Data: If Hep A IgM Ab is reported as Equivocal, a new sample should be drawn in two weeks for testing. Current interpretive data was last revised on 19. Testing performed by: [facility], [address] [place] [address], [place]., [address] Hep B core IgM Nonreactive Nonreactive [facility] ([place]) Comment: Interpretive Data If HepB Core IgM Ab is reported as Equivocal, a new sample should be drawn in two weeks for testing. Current interpretive data was last revised on 19. Testing performed by: [facility], [address] [place] [address]., [id number] Hep C Ab Nonreactive Nonreactive YARITZA WELLS ([place]HAO) Comment: Interpretive Data Nonreactive: Antibodies to HCV not detected. Does NOT exclude the possibility of recent exposure to HCV. Equivocal: Equivocal for HCV antibodies. Supplemental molecular testing will be automatically performed to determine infection status in accordance with current CDC screening recommendations. Reactive: Positive for HCV antibodies. This may represent current or past HCV infection. Supplemental molecular testing will be automatically performed to determine current infection status in accordance with current CDC screening recommendations. Interpretive data was last revised on 2019. Testing performed by: [facility], [address] [place] [address]., [id number] HepBsAg Nonreactive Nonreactive YARITZA WELLS ([place]O) Comment:Testing performed by : [facility], [address] [place] [address]., [id number] Blood 05/09/2025 3:52 AM CDT 05/09/2025 9:31 AM CDT Suly Chong MD LAB MICROBIOLOGY - [facility] ORDERABLES Final Result YARITZA WELLS ([place]) 1 [facility] Department [place] [address] * (ABNORMAL) D-dimer, quantitative (05/09/2025 3:52 AM CDT) D-Dimer 1,264(H) <=499 ng/mL FEU YARITZA WELLS ([place]O) Comment: Interpretive data FDA approved the D-dimer, in conjunction with a low or moderate pretest probability score, to exclude venous thromboembolic events (VTE) (PE and DVT) in outpatients when the D-dimer result is < 500 ng/ml FEU. Evidence supports using an age-adjusted D-dimer cut-off for outpatients older than 50 (age x 10) to improve specificity without sacrificing sensitivity. Example: age 68, VTE cut-off 680 ng/ml FEU. References; Schclaudia HT et al. Brit Med J. 2013;346:f2492. Shubham ANN et al. Annals Int Med. 2015;163:701-11. Current interpretive data was last revised on 2019. Blood 05/09/2025 3:52 AM CDT 05/09/2025 4:16 AM CDT Suly Chong MD LAB BLOOD ORDERABLES Fi nal Result [facility] ([place]) 1 [place] [address] * Magnesium (05/09/2025 3:52 AM CDT) Magnesium 1.5 1.4 - 2.5 mg/dL [facility] ([place]) Blood 05/09/2025 3:52 AM CDT 05/09/2025 4:16 AM CDT Suly Chong MD LAB BLOOD ORDERABLES Fi nal Result Performing Organization Address City/[facility] Co de Phone Number [facility] ([place]) 1 [place] [address] * (ABNORMAL) Hemoglobin A1c (05/09/2025 3:52 AM CDT) Hgb A1C 7.2(H) 4.0 - 5.6 % [facility]) Estimated Average Glucose 160 mg/dL [facility] ([place]) Comment: The ADA recommends reporting an estimated Average Glucose (eAG) with all Hemoglobin A1c results using the equation derived from a study of 507 normal and diabetic adults. Minority populations were underrepresented and children were not included. (Diabetes Care 31:8927-6530, 2008). The eAG is not equivalent to a fasting glucose. Testing performed by: [facility], [facility], [place], [address] Blood 05/09/2025 3:52 AM CDT 05/09/2025 4:16 AM CDT Suly Chong MD LAB BLOOD ORDERABLES Fi nal Result Performing Organization Address [facility]/ZIP Co de Phone Number YARITZA [facility] (BOISE) 1 [place] [address] * Ammonia (05/09/2025 3:52 AM CDT) Ammonia 27 <=50 mcmol/L [facility] ([place]) Blood 05/09/2025 3:52 AM CDT 05/09/2025 4:03 AM CDT Suly Chong MD LAB BLOOD ORDERABLES Fi nal Result Performing Organization Address [facility] Co de Phone Number YARITZA WELLS (BOISE) 1 [place] [address] * Ethanol (05/09/2025 3:52 AM CDT) Ethanol <10 <=10 mg/dL [facility] ([place]) Comment: Interpretive Data Legal limit of intoxication > or = 80 mg/dL Levels > or = 400 mg/dL are potentially TOXIC. Current interpretive data was last revised on 2018. Blood 05/09/2025 3:52 AM CDT 05/09/2025 4:16 AM CDT Suly Chong MD LAB BLOOD ORDERABLES Fi nal Result Performing Organization Address [facility] Co de Phone Number YARITZA WELLS (BOISE) 1 [facility] [place] [address] * (ABNORMAL) Comprehensive metabolic panel (05/09/2025 3:52 AM CDT) Sodium 135 135 - 145 mmol/L [facility] ([place]) Potassium, pl 4.3 3.3 - 4.9 mmol/L [facility] ([place]) Chloride 101 97 - 110 mmol/L [facility] ([place]) CO2 21(L) 22 - 32 mmol/L [facility] ([place]) Anion gap 13 2 - 15 mmol/L [facility] ([place]) BUN 7 6 - 25 mg/dL [facility] ([place]) Creatinine 0.95 0.80 - 1.30 mg/dL [facility] ([place]) Glucose 133 70 - 199 mg/dL [facility] ([place]) Comment: Interpretive Data Fasting glucose >/= 126 mg/dl is diagnostic for diabetes. Fasting is defined as no caloric intake for at least 8 hours. Fasting glucose between 100 mg/dl to 125 mg/dl is diagnostic of prediabetes. In a patient with classic symptoms of hyperglycemia or hyperglycemic crisis, a random glucose >/= 200 mg/dl is diagnostic for diabetes. In the absence of unequivocal hyperglycemia, results should be confirmed by repeat testing. The classification and Diagnosis of Diabetes Diabetes Care 202; 46: S19-S40. Current interpretive data was last revised 2022. Calcium 9.3 8.5 - 10.3 mg/dL [facility] ([place]) Bilirubin, total 0.9 0.1 - 1.2 mg/dL [facility] ([place]) Protein, pl 6.9 6.5 - 8.5 g/dL [facility] ([place]) Albumin 3.5 3.5 - 5.0 g/dL [facility] ([place]) Alk phos 160(H) 40 - 130 Units/L [facility] ([place]) ALT 97(H) 7 - 55 Units/L [facility] ([place]) AST 194(H) 10 - 50 Units/L [facility] ([place]) Blood 05/09/2025 3:52 AM CDT 05/09/2025 4:16 AM CDT us Suly Chong MD LAB BLOOD ORDERABLES Fi nal Result YARITZA [facility] ([place]) 1 [facility] Department of Laboratories [place], [place] [id number] * (ABNORMAL) Benzodiazepine Confirmation by MS (05/09/2025 3:30 AM CDT) Pathologist [facility] Alprazotomas, ur Does Not Confirm CutOff 20 ng/ml Comment:Testing performed by : [facility], [address] [place]., [address] Clonazepam, ur Does Not Confirm CutOff 20 ng/ml [facility] ([place]) Comment:Testing performed by : [facility], 1 [facility], [address] Flunitrazepam, ur Does Not Confirm CutOff 20 ng/ml [facility] ([place]) Comment:Testing performed by : [facility], 1 [facility], [address] Lorazepam, ur Confirmed Positive(A) CutOff 20 ng/ml [facility] ([place]) Comment:Testing performed by : [facility], 1 [facility], [address] Midazolam, ur Does Not Confirm CutOff 100 ng/mL [facility] ([place]) Comment:Testing performed by : [facility], [address] [place] [address], [id number] Nordiazepam, ur Does Not Confirm CutOff 20 ng/ml [facility] ([place]) Comment:Testing performed by : [facility], 1 [facility], [address] Oxazepam, ur Does Not Confirm CutOff 20 ng/ml [facility] ([place]) Comment:Testing performed by : [facility], 1 [facility], [address] Temazepam, ur Does Not Confirm CutOff 20 ng/ml [facility] ([place]) Comment: Interpretive Data This test is performed by liquid chromatography tandem mass spectrometry and detects both free and conjugated drug metabolites. Questions concerning interpretation should be directed to the laboratory. The results of this test are intended for clinical use. This test was developed and its performance characteristics determined by [facility]. It has not been cleared or approved by the U.S. Food and Drug Administration. Testing performed by: [facility], [address] [place] [address], [id number] Urine 05/09/2025 3:30 AM CDT 05/09/2025 10:13 AM CDT Suly Chong MD LAB URINE ORDERABLES Fi nal Result YARITZA WELLS ([place]HAO) 1 [facility] Department [place] [address] * (ABNORMAL) Drugs of Abuse Screen, Urine with Reflex Confirmation (05/09/2025 3:30 AM CDT) Amphetamine, ur Screen Positive, presumptive (A) CutOff 500ng/mL [facility] ([place]) Comment: Interpretive Data - Amphetamines: Samples containing greater than 500 ng/mL d-methamphetamine or other cross-reacting amphetamine compounds are reported as positive. Amphetamine immunoassays are subject to significant false positive rates due to cross-reactivity of non-amphetamine drugs. Confirmatory testing required for definitive results. Current Interpretive Data was last reviewed 2023. Barbiturates, ur Not Detected CutOff 200ng/mL [facility] ([place]) Comment: Interpretive Data - Barbiturates: Samples containing greater than 200 ng/mL secobarbital or other cross-reacting barbiturate compounds are reported as positive. False positive and false negative results are possible. Confirmatory testing required for definitive results. Current Interpretive Data was last reviewed 2023. Benzodiazepines, ur Screen Positive, presumptive (A) CutOff 100ng/mL [facility] ([place]) Comment: Interpretive Data - Benzodiazepines: Samples containing greater than 100 ng/mL nordiazepam or other cross-reacting compounds are reported as positive. False positive and false negative results are possible. Confirmatory testing required for definitive results. Current Interpretive Data was last reviewed 2023. Cannabinoids, ur Not Detected CutOff 50 ng/mL [facility] ([place]) Comment: Interpretive Data - Cannabinoids: Samples containing greater than 50 ng/mL delta-9 THC -COOH or other cross- reacting compounds are reported as positive. False positive and false negative results are possible. Confirmatory testing required for definitive results. Current Interpretive Data was last reviewed 2023. Cocaine, ur Not Detected CutOff 150ng/mL [facility] ([place]) Comment: Interpretive Data - Cocaine: Samples containing greater than 150 ng/mL benzoylecgonine or other cross- reacting compounds are reported as positive. False positive and false negative results are possible. Confirmatory testing required for definitive results. Current Interpretive Data was last reviewed 2023. Fentanyl, Ur Not Detected CutOff 5 ng/mL [facility] ([place]) Comment: Interpretive Data - Fentanyl: Samples containing greater than 5 ng/mL norfentanyl, fentanyl, or other cross-reacting fentanyl compounds are reported as positive. False positive and false negative results are possible. Confirmatory testing required for definitive results. Current Interpretive Data was last reviewed 2023. Methadone, ur Not Detected CutOff 300ng/mL [facility] ([place]) Comment: Interpretive Data - Methadone: Samples containing greater than 300 ng/mL d,l-methadone or other cross-reacting compounds are reported as positive. False positive and false negative results are possible. Confirmatory testing required for definitive results. Current Interpretive Data was last reviewed 2023. Opiates, ur Not Detected CutOff 300ng/mL [facility] ([place]) Comment: Interpretive Data - Opiates: Samples containing greater than 300 ng/mL morphine or other cross-reacting compounds are reported as positive. False positive and false negative results are possible. Confirmatory testing required for definitive results. Current Interpretive Data was last reviewed 2023. Oxycodone, ur NOT DETECTED CutOff 100ng/mL [facility] ([place]) Comment: Interpretive Data - Oxycodone: Samples containing greater than 100 ng/mL oxycodone or other cross-reacting compounds are reported as positive. False positive and false negative results are possible. Confirmatory testing required for definitive results. Current Interpretive Data was last reviewed 2023. Phencyclidine, ur Not Detected CutOff 25 ng/mL [facility] ([place]) Comment: Interpretive Data - Phencyclidine: Samples containing greater than 25 ng/mL phencyclidine or other cross-reacting compounds are reported as positive. False positive and false negative results are possible. Confirmatory testing required for definitive results. Current Interpretive Data was last reviewed 2023. Urine Creatinine 166 mg/dL [facility] ([place]) Comment: Interpretive Data Urine Creatinine: < 10 mg/dL is extremely dilute = or > 10 but < 20 mg/dL is dilute = or > 20 mg/dL is normal Current Interpretive Data was last revised on 2017. Urine 05/09/2025 3:30 AM CDT 05/09/2025 3:33 AM CDT Narrative [facility] ([place]) - 05/09/2025 4:26 AM CDT Drug Screening is performed by immunoassay for medical purposes. If positive, confirmation testing will be performed for amphetamines, benzodiazepines, cocaine, fentanyl, methadone, opiates, oxycodone, and phencyclidine. Suly Chong MD LAB URINE ORDERABLES [facility] Result [facility] ([place]) 1 [facility] Department [place] [address] * (ABNORMAL) Amphetamine Confirmation, Urine (05/09/2025 3:30 AM CDT) Amphetamine Conf, Ur Does Not Confirm CutOff 150ng/mL Comment:Testing performed by : [facility], [address] [place] [address]., [id number] Methamphetamine Conf, Ur Confirmed Positive(A) CutOff 150ng/mL [facility] ([place]) Comment:Testing performed by : [facility], 1 [place]., [address] MDA Conf, Ur Does Not Confirm CutOff 150ng/mL [facility] ([place]) Comment:Testing performed by : [facility], [address] [place]., [address] MDMA Conf, Ur Does Not Confirm CutOff 50 ng/mL [facility] ([place]) Comment:Testing performed by : [facility], [address] [place]., [address] MDEA Conf, Ur Does Not Confirm CutOff 150ng/mL [facility] ([place]) Comment:Testing performed by : [facility], [address] [place]., [address] MBDB Conf, Ur Does Not Confirm CutOff 150ng/mL [facility] ([place]) Comment: Interpretive Data This test detects the presence or absence of drug compounds using LC Tandem mass spectrometry. While this test is highly specific, false positive and false negative results may occur in very rare circumstances. Contact the laboratory for consultation, if needed. Performance characteristics were determined by the [facility] in a manner consistent with CLIA requirement and has not been cleared or approved by the U.S. Food and Drug Administration. Current interpretive data was last revised on 2020. Testing performed by: [facility], [address] [place]., [address] Urine 05/09/2025 3:30 AM CDT 05/09/2025 10:13 AM CDT us Suly Chong MD LAB URINE ORDERABLES [facility] Result YARITZA [facility] ([place]) 1 [facility] Department [place] [address] * (ABNORMAL) Urinalysis reflex to microscopic and culture Urine (05/09/2025 3:25 AM CDT) Color, ur Yellow Yellow Clarity, ur Clear Clear [facility] ([place]) Specific gravity, ur 1.025 1.003 - 1.030 [facility] ([place]) pH, urine 8.5 [facility] ([place]) Comment: Interpretive Data U rine pH is affected by diet, medications, systemic acid-base disturbances, and renal tubular function. pH may affect urinary stone formation. For example, urine pH below 6.0 may help reduce the tendency for calcium phosphate stones and pH greater than 6.0 may reduce the tendency for uric acid stone formation. Source: [facility] [employer] Current Interpretive Data was last revised on 2017 Protein, ur ql 2+(A) Negative [facility] ([place]) Glucose, ur ql Negative Negative [facility] ([place]) Ketones, ur Negative Negative [facility] ([place]) Bilirubin, ur Negative Negative [facility] ([place]) Blood, ur Negative Negative [facility] ([place]) Urobilinogen, ur 2.0(A) <2.0 mg/dL [facility] ([place]) Nitrite, ur Negative Negative [facility] ([place]) Leukocyte esterase, ur 2+(A) Negative [facility] ([place]) UA reflex comment Reflex to microscopic UA will be performed. YARITZA WELLS ([place]) Urine 05/09/2025 3:25 AM CDT 05/09/2025 3:33 AM CDT Suly Chong MD LAB MICROBIOLOGY - GENE RAL ORDERABLES Final Result Performing Organization Address [facility] Co de Phone Number YARITZA WELLS (ZHAO) 1 [facility] [place] [address] * (ABNORMAL) Urinalysis, microscopic only (05/09/2025 3:25 AM CDT) WBC, ur 21-50(A) 0 - 5 /HPF RBC, ur 0-2 0 - 2 /HPF [facility] ([place]) Epithelial cells, squamous, ur 1-5 0 - 5 /HPF [facility] ([place]) Bacteria, ur Trace(A) [facility] ([place]) Mucous, ur Present(A) [facility] ([place]) Sperm, ur Present(A) [facility] ([place]) Culture Reflex Comment Reflex to urine culture will be performed. YARITZA WELLS (ZHAO) Urine 05/09/2025 3:25 AM CDT 05/09/2025 3:33 AM CDT Suly Chong MD LAB URINE ORDERABLES Fi nal Result Performing Organization Address [facility] Co de Phone Number YARITZA WELLS (ZHAO) 1 [facility] [place] [address] * Urine culture Urine (05/09/2025 3:25 AM CDT) Report Final Report: No growth Comment:Testing performed by : [facility], 1 [facility], [place]., [address] Urine 05/09/2025 3:25 AM CDT 05/09/2025 5:52 AM CDT Narrative YARITZA WELLS (ZHAO) - 05/10/2025 7:11 AM CDT Urine culture reflexed based upon urinalysis results. Testing performed by [facility] ([phone]) us Suly Chong MD LAB MICROBIOLOGY - GENE RAL ORDERABLES Final Result YARITZA COX) 1 [facility] Department [place] [address] * CT Chest Abdomen Pelvis WO Contrast (05/08/2025 11:22 PM CDT) Anatomical Region Laterality Modality Body N/A Computed Tomogra phy 05/08/2025 11:3 2 PM CDT Narrative 05/08/2025 11:42 PM CDT EXAM DESCRIPTION: CT CHEST ABDOMEN PELVIS WO CONTRAST REASON FOR STUDY: Shortness of breaths, abdominal distention c/o right arm pain and swelling since last week. Pt reports he was at another hospital where he had an IV and it blew. Pt reports he has had pain since and now he has redness going up his arm since 2 days ago. Pt has sores to bilateral arms that he says have been there a long time. Pt reports he ran out of his Lasix 2 days ago. TECHNIQUE: CT scan of the chest, abdomen, and pelvis performed without intravenous and without oral contrast using helical scanning technique. Reconstructed coronal and sagittal MPR images reviewed. All images stored on PACS. Automated exposure control was used as a dose optimization technique for this examination. COMPARISON: None FINDINGS: The sensitivity for detection of visceral lesions is diminished without the use of intravenous contrast. CHEST LUNGS: No nodules or masses. No pneumonia. PLEURA: No effusion. No pneumothorax. MEDIASTINUM/ALVA: No identified masses or abnormal nodes. HEART: Heart size is normal with no pericardial effusion. CORONARY ARTERY CALCIFICATION: None VASCULATURE CHEST: No thoracic aortic aneurysm. AXILLA: No adenopathy. CHEST WALL: No masses. No subcutaneous air. HARDWARE/LINES/TUBES: None. MUSCULOSKELETAL CHEST: No significant abnormality. ABDOMEN/PELVIS LIVER: The liver is enlarged. Diffuse fatty infiltration of the liver is evident. No focal lesions are seen. GALLBLADDER: Unremarkable BILE DUCTS: No intrahepatic or extrahepatic ductal dilatation. SPLEEN: Normal size. No focal lesions. PANCREAS: No identified cystic or solid masses. No significant calcifications. No adjacent inflammation or peripancreatic fluid collections. Pancreatic duct not dilated. ADRENALS: Normal. KIDNEYS/URINARY TRACT: No identified significant cystic or solid masses. No stones. No hydronephrosis or hydroureter. Urinary bladder is unremarkable. GI: No dilated bowel loops. No obvious wall thickening. Normal appendix. No significant diverticular disease. PERITONEUM: No ascites or free air. RETROPERITONEUM: No mass or adenopathy. REPRODUCTIVE: No significant abnormality. VASCULATURE ABDOMEN: No abdominal aortic aneurysm. MUSCULOSKELETAL ABDOMEN PELVIS: No acute finding. OTHER: No significant abnormality. IMPRESSION: 1. Hepatomegaly with diffuse fatty infiltration of the liver. 2. No acute abnormality is seen. THIS IS AN ELECTRONICALLY VERIFIED FINAL REPORT 05/08/2025 11:42 PM - Electronically signed by Dalton Neff M.D. KH: AGNES Report ID: [id number] Reading Location: [id number] Procedure Note Dalton Neff MD - 05/08/2025 EXAM DESCRIPTION: CT CHEST ABDOMEN PELVIS WO CONTRAST REASON FOR STUDY: Shortness of breaths, abdominal distention c/o right arm pain and swelling since last week. Pt reports he was [facility] where he had an IV and it blew. Pt reports he has had pain sinceand now he has redness going up his arm since 2 days ago. Pt has sores to bilateral arms that he says have been there a long time. Pt reports heran out of his Lasix 2 days ago. TECHNIQUE: CT scan of the chest, abdomen, and pelvis performed without intravenous and without oral contrast using helical scanning technique. Reconstructed coronal and sagittal MPR images reviewed. All images storedon PACS. Automated exposure control was used as a dose optimizationtechnique for this examination. COMPARISON: None FINDINGS: The sensitivity for detection of visceral lesions is diminished withoutthe use of intravenous contrast. CHEST LUNGS: No nodules or masses. No pneumonia. PLEURA: No effusion. No pneumothorax. MEDIASTINUM/ALVA: No identified masses or abnormal nodes. HEART: Heart size is normal with no pericardial effusion. CORONARY ARTERY CALCIFICATION: None VASCULATURE CHEST: No thoracic aortic aneurysm. AXILLA: No adenopathy. CHEST WALL: No masses. No subcutaneous air. HARDWARE/LINES/TUBES: None. MUSCULOSKELETAL CHEST: No significant abnormality. ABDOMEN/PELVIS LIVER: The liver is enlarged. Diffuse fatty infiltration of the liveris evident. No focal lesions are seen. GALLBLADDER: Unremarkable BILE DUCTS: No intrahepatic or extrahepatic ductal dilatation. SPLEEN: Normal size. No focal lesions. PANCREAS: No identified cystic or solid masses. No significant calcifications. No adjacent inflammation or peripancreatic fluidcollections. Pancreatic duct not dilated. ADRENALS: Normal. KIDNEYS/URINARY TRACT: No identified significant cystic or solid masses.No stones. No hydronephrosis or hydroureter. Urinary bladder isunremarkable. GI: No dilated bowel loops. No obvious wall thickening. Normalappendix. No significant diverticular disease. PERITONEUM: No ascites or free air. RETROPERITONEUM: No mass or adenopathy. REPRODUCTIVE: No significant abnormality. VASCULATURE ABDOMEN: No abdominal aortic aneurysm. MUSCULOSKELETAL ABDOMEN PELVIS: No acute finding. OTHER: No significant abnormality. IMPRESSION: 1. Hepatomegaly with diffuse fatty infiltration of the liver. 2. No acute abnormality is seen. THIS IS AN ELECTRONICALLY VERIFIED FINAL REPORT 05/08/2025 11:42 PM - Electronically signed by Dalton Neff M.D. KH: AGNES Report ID: [id number] Reading Location: [place] [address] [facility] MD IMG CT PROCEDURES Final Result * Troponin T high-sensitivity 2-hour (05/08/2025 8:18 PM CDT) Trop T hs 7 <=22 ng/L [facility] ([place]) Comment: Interpretive Data For further hscTnT resources including the diagnostic algorithm and an aid in interpretation, copy and paste this link: https://nrl.testcatalog.org/show/hsTrop Current Interpretive Data last revised 2020. Trop T hs delta 0 ng/L [facility] ([place]) Trop T hs interp Insignificant [facility] ([place]) Blood 05/08/2025 8:18 PM CDT 05/08/2025 8:25 PM CDT Aubrie Wesley NP LAB BLOOD ORDERABLES Final Re sult YARITZA WELLS (ZHAO) 1 [facility] Department [place] [address] * Blood culture Blood (05/08/2025 8:18 PM CDT) Report Final Report: No growth Comment:Testing performed by : [facility], 1 [place]., [address] Blood 05/08/2025 8:18 PM CDT 05/09/2025 12:21 AM CDT Narrative YARITZA WELLS (ZHAO) - 05/13/2025 7:01 AM CDT From a different site than #1. Collection->Peripheral 1. Blood cultures are incubated for 4 days on a continuously monitored blood culture system. The first report of a negative culture is issued within 24 hours of receipt of the specimen in the laboratory. 2. Positive culture results are reported as soon as they are detected. 3. The most important factor for detection of microbes in the setting of bloodstream infection is the volume of blood submitted for culture. Failure to collect an optimal blood volume can result in false negative blood cultures. 4. For pediatric patients, the recommended blood volume to collect follows a weight based strategy. See the electronic test catalog for collection instructions. 5. For positive blood cultures, a rapid molecular test may be performed for organism identification using the [employer] e[employer] blood culture identification panel for gram positive (BCID-GP) and gram negative (BCID-GN) organisms. This nucleic acid amplification test detects microbial DNA in positive blood culture broth. This assay has been cleared by the [place] Food and Drug Administration and its performance characteristics have been verified by the [facility]. For questions about this culture, contact the Microbiology Laboratory at [phone]. Interpretive data was last revised on 24. us Aubrie Wesley NP LAB MICROBIOLOGY - GENERAL OR DERABLES Final Result YARITZA WELLS ([place]ISE) 1 [facility] Department [place] [address] * (ABNORMAL) Blood culture Blood (05/08/2025 8:18 PM CDT) Direct Specimen Exam Stain: Gram Positive Cocci in clusters Time to culture positivity (aerobic media): 41.7 hours Notification of: Gram Positive Cocci in clusters called to and read back by: Cris Somers MLT [phone] on 05/10/2025 18:43:03 by: Marina Reynolds MT Test result called to and read back by barbi carrillo on 05/10/2025 22:14:04 by cris sears Comment:Testing performed by : [facility], [address] [place] [address]., [id number] Direct Specimen Exam Molecular Analysis: Staphylococcus species detected by the [employer]on[employer] eplex BCID-GP panel. Single positive culture may represent contamination. This is most suggestive of a coagulase-negative Staphylococcus species. Please refer to final culture-based result for confirmation. This test does not exclude the possibility of a mixed bacterial infection. Notification of: Staphylococcus species called to and read back by: Cris Sears MLT [phone] on 05/10/2025 20:36:27 by: JR Antonio (ZHAO) Comment:Testing performed by : [facility], [address] [place] [address]., [id number] Report Final Report: Staphylococcus hominis Single blood culture positive for this microorganism. Isolate is a possible contaminant. If a similar isolate is recovered from a second blood culture collected within 3 days of this culture, both will be evaluated and, if determined to be the same species, antimicrobial susceptibility testing will be performed. (.) YARITZA WELLS (ZHAO) Comment:Testing performed by : [facility], [address] [place] [address]., [id number] Organism STAPHYLOCOCCUS HOMINIS YARITZA WELLS (ZHAO) Blood 05/08/2025 8:18 PM CDT 05/09/2025 12:21 AM CDT Narrative YARITZA WELLS ([place]) - 05/15/2025 6:12 AM CDT Collection->Peripheral 1. Blood cultures are incubated for 4 days on a continuously monitored blood culture system. The first report of a negative culture is issued within 24 hours of receipt of the specimen in the laboratory. 2. Positive culture results are reported as soon as they are detected. 3. The most important factor for detection of microbes in the setting of bloodstream infection is the volume of blood submitted for culture. Failure to collect an optimal blood volume can result in false negative blood cultures. 4. For pediatric patients, the recommended blood volume to collect follows a weight based strategy. See the electronic test catalog for collection instructions. 5. For positive blood cultures, a rapid molecular test may be performed for organism identification using the leonides ePlex blood culture identification panel for gram positive (BCID-GP) and gram negative (BCID-GN) organisms. This nucleic acid amplification test detects microbial DNA in positive blood culture broth. This assay has been cleared by the [place] Food and Drug Administration and its performance characteristics have been verified by the [facility]. For questions about this culture, contact the Microbiology Laboratory at [phone]. Interpretive data was last revised on 24. Aubrie Wesley NP LAB MICROBIOLOGY - GENERAL OR DERABLES Final Result YARITZA WELLS ([place]HAO) 1 [facility] Department [place] [address] * XR Chest 1 Vw Portable (05/08/2025 6:15 PM CDT) Anatomical Region Laterality Modality Body, Chest N/A Computed Radiogr aphy 05/08/2025 6:27 PM CDT Narrative 05/08/2025 6:28 PM CDT EXAM DESCRIPTION: XR CHEST 1 VIEW REASON FOR STUDY: chest pain/CHF C/o right arm pain and swelling since last week. Pt reports he was at another hospital where he had an IV and it blew. Pt reports he has had pain since and now he has redness going up his arm since 2 days ago. Pt has sores to bilateral arms that he says have been there a long time. Pt reports he ran out of his Lasix 2 days ago. Smoker Hypertension TECHNIQUE: Single-view COMPARISON: 06/27/2024 FINDINGS: Central vascularity have normal caliber. Aortic arch well-defined on the left. Granulomatous calcification redemonstrated. No dense consolidations, effusions or pneumothorax. IMPRESSION: No acute findings. THIS IS AN ELECTRONICALLY VERIFIED FINAL REPORT 05/08/2025 6:28 PM - Electronically signed by Bishnu Oliver M.D. RB: RB Report ID: [id number] Reading Location: [id number] Procedure Note Bishnu Oliver MD - 05/08/2025 EXAM DESCRIPTION: XR CHEST 1 VIEW REASON FOR STUDY: chest pain/CHF C/o right arm pain and swelling since last week. Pt reports he was at another hospital where he had an IV and it blew. Pt reports he has hadpain since and now he has redness going up his arm since 2 days ago. Pt hassores to bilateral arms that he says have been there a long time. Pt reportshe ran out of his Lasix 2 days ago. Smoker Hypertension TECHNIQUE: Single-view COMPARISON: 06/27/2024 FINDINGS: Central vascularity have normal caliber. Aortic arch well-defined on the left. Granulomatous calcification redemonstrated. No dense consolidations, effusions or pneumothorax. IMPRESSION: No acute findings. THIS IS AN ELECTRONICALLY VERIFIED FINAL REPORT 05/08/2025 6:28 PM - Electronically signed by Bishnu Oliver M.D. RB: RB Report ID: [id number] Reading Location: [id number] Aubrie Wesley NP IMG XR PROCEDURES Final Resul t * Troponin T high-sensitivity series (baseline, 2hr, 4hr, 6hr) (05/08/2025 6:08 PM CDT) Trop T hs 7 <=22 ng/L YARITZA WELLS (ZHAO) Comment: Interpretive Data For further hscTnT resources including the diagnostic algorithm and an aid in interpretation, copy and paste this link: https://nrl.testcatalog.org/show/hsTrop Current Interpretive Data last revised 2020. Blood 05/08/2025 6:08 PM CDT 05/08/2025 6:14 PM CDT us Aubrie Wesley [employer] LAB BLOOD ORDERABLES Final Re sult Performing Organization Address [facility] Co de Phone Number YARITZA WELLS ([place]) 1 [facility] [place] [address] * eGFR (05/08/2025 6:08 PM CDT) eGFR >90 >=60 mL/min/1. 73 m2 Comment: Interpretive Data Reference Interval Normal >/= 90 mL/min/1.73m2 Mildly decreased* 60 - 89 mL/min/1.73m2 Mildly to moderately decreased 45 - 59 mL/min/1.73m2 Moderately to severely decreased 30 - 44 mL/min/1.73m2 Severely decreased 15 - 29 mL/min/1.73m2 Kidney Failure < 15 mL/min/1.73m2 *Relative to young adult level Estimated glomerular filtration rate is determined by the 2020 CKD-EPI equation recommended by the National Kidney Foundation (A Unifying Approach to GFR Estimation: Recommendations of the NKF-ASK Task Force on Reassessing the Inclusion of Race in Diagnosing Kidney Disease, JASN 2020). The CKD-EPI equation should not be used for patients with unstable renal function and has not been validated in children and those over 70. Current interpretive data was last reviewed 2021. Blood 05/08/2025 6:08 PM CDT 05/08/2025 6:14 PM CDT us Aubrie Wesley [employer] LAB BLOOD ORDERABLES Final Re sult Performing Organization Address City/[facility]/ZIP Co de Phone Number YARITZA WELLS (ZHAO) [address] Department [place] [address] * Differential, auto (05/08/2025 6:08 PM CDT) Neutrophil abs 4.06 1.50 - 6.50 K/cumm Imm gran abs 0.04 0.00 - 0.10 K/cumm [facility] ([place]) Lymphocyte abs 1.96 0.80 - 3.30 K/cumm [facility] ([place]) Monocyte abs 0.71 0.20 - 0.80 K/cumm [facility] ([place]) Eosinophil abs 0.15 0.00 - 0.50 K/cumm [facility] ([place]) Basophil abs 0.05 0.00 - 0.10 K/cumm [facility] ([place]) Neutrophil pct 58.2 % [facility] ([place]) Comment: Interpretive Data Percent cell count reference ranges are not reported, since discordance with absolute values may lead to misinterpretation of CBC data. Current Interpretive Data was last revised on 2017. Imm gran pct 0.6 % [facility] ([place]) Comment: Interpretive Data Percent cell count reference ranges are not reported, since discordance with absolute values may lead to misinterpretation of CBC data. Current Interpretive Data was last revised on 2017. Lymphocyte pct 28.1 % [facility] ([place]) Comment: Interpretive Data Percent cell count reference ranges are not reported, since discordance with absolute values may lead to misinterpretation of CBC data. Current Interpretive Data was last revised on 2017. Monocyte pct 10.2 % [facility] ([place]) Comment: Interpretive Data Percent cell count reference ranges are not reported, since discordance with absolute values may lead to misinterpretation of CBC data. Current Interpretive Data was last revised on 2017. Eosinophil pct 2.2 % [facility] ([place]) Comment: Interpretive Data Percent cell count reference ranges are not reported, since discordance with absolute values may lead to misinterpretation of CBC data. Current Interpretive Data was last revised on 2017. Basophil pct 0.7 % [facility] ([place]) Comment: Interpretive Data Percent cell count reference ranges are not reported, since discordance with absolute values may lead to misinterpretation of CBC data. Current Interpretive Data was last revised on 2017. Blood 05/08/2025 6:08 PM CDT 05/08/2025 6:14 PM CDT us Aubrie Wesley NP LAB BLOOD ORDERABLES Final Re sult YARITZA WELLS ([place]) 1 [facility] Department [place] [address] * Pro B-type natriuretic peptide (05/08/2025 6:08 PM CDT) NT-proBNP <36 <=300 pg/mL YARITZA WELLS ([place]O) Comment: Interpretive Comments: A. Dyspnea in Acute Care Setting All Ages: < 300 pg/ml, acute heart failure unlikely. < 50 yrs: 300 - 450 pg/ml, further investigation warranted. > 450 pg/ml, acute heart failure likely. 50 - 74 yrs: 300 - 900 pg/ml, further investigation warranted. > 900 pg/ml, acute heart failure likely . > or = 75 yrs: 450 - 1800 pg/ml, further investigation warranted. > 1800 pg/ml, acute heart failure likely. B. Non-acute Setting < 75 yrs < 125 pg/ml, rules out heart failure. > or = 125 pg/ml, further investigation warranted. > or = 75 yrs < 450 pg/ml, rules out heart failure. > or = 450 pg/ml, further investigation warranted. - Knowledge of each individual patient's NT-proBNP range may be more useful than using similar cut-points for every patient. Please note that marked elevations in NT-proBNP levels may be observed in state other than Left Ventricular Congestive Failure, including: acute coronary syndromes, right heart strain/failure (including pulmonary embolism and cor pulmonale), critical illness, renal failure, as well as advanced age. - References: 1. Crystal RUIZ et.al. Eur Heart J. 2006:27:330-337. 2. Iona RAMÍREZ, Karoline BHAT. J. AM Milka Cardiol: Cardiovasc Imag. 2009;2: 216- 225. Interpretive Data Last Revised Date: 2018. Blood 05/08/2025 6:0 8 PM CDT 05/08/2025 6:13 PM CDT Aubrie Wesley [employer] LAB BLOOD ORDERABLES Final Re sult [facility] ([place]) 1 [facility] [place] [address] * (ABNORMAL) CBC with auto differential (05/08/2025 6:08 PM CDT) WBC 6.97 3.80 - 9.90 K/cumm Hgb 14.2 13.0 - 17.5 g/dL [facility] ([place]) Hct 40.7 38.9 - 50.3 % [facility] ([place]) Plt 288 150 - 400 K/cumm [facility] ([place]) MPV 9.4 9.1 - 12.3 fL [facility] ([place]) RBC 3.72(L) 4.30 - 5.80 M/cumm [facility] ([place]) MCV 109.4(H) 81.3 - 96.4 fL [facility] ([place]) MCH 38.2(H) 27.1 - 33.3 pg [facility] ([place]) MCHC 34.9 32.3 - 35.7 g/dL [facility] ([place]) RDW CV 16.5(H) 11.1 - 14.9 % [facility] ([place]) RDW SD 66.9(H) 35.7 - 48.1 fL [facility] ([place]) NRBC abs 0.00 0.00 - 0.01 K/cumm [facility] ([place]) Blood 05/08/2025 6:08 PM CDT 05/08/2025 6:14 PM CDT Aubrie Wesley [employer] LAB BLOOD ORDERABLES Final Re sult Performing Organization Address City/[facility]/ZIP Co de Phone Number [facility] ([place]) 1 [facility] [place] [address] * Magnesium (05/08/2025 6:08 PM CDT) Pathologist [facility] Magnesium 1.5 1.4 - 2.5 mg/dL [facility] ([place]) Blood 05/08/2025 6:08 PM CDT 05/08/2025 11:06 PM CDT Suly Chong MD LAB BLOOD ORDERABLES Fi nal Result YARITZA WELLS ([place]) 1 [facility] Department [place] [address] * Lipase (05/08/2025 6:08 PM CDT) Pathologist [facility] Lipase 26 10 - 99 Units/L [facility] ([place]) Blood 05/08/2025 6:08 PM CDT 05/08/2025 11:06 PM CDT Suly Chong MD LAB BLOOD ORDERABLES Fi nal Result Performing Organization Address City/[facility] Co de Phone Number [facility] ([place] 1 [facility] [place] [address] * (ABNORMAL) Comprehensive metabolic panel (05/08/2025 6:08 PM CDT) Pathologist [facility] Sodium 138 135 - 145 mmol/L [facility] ([place]) Potassium, pl 4.1 3.3 - 4.9 mmol/L [facility] ([place]) Chloride 99 97 - 110 mmol/L [facility] ([place]) CO2 23 22 - 32 mmol/L [facility] ([place]) Anion gap 16(H) 2 - 15 mmol/L [facility] ([place]) BUN 6 6 - 25 mg/dL [facility] ([place]) Creatinine 0.97 0.80 - 1.30 mg/dL [facility] ([place]) Glucose 224(H) 70 - 199 mg/dL [facility] ([place]) Comment: Interpretive Data Fasting glucose >/= 126 mg/dl is diagnostic for diabetes. Fasting is defined as no caloric intake for at least 8 hours. Fasting glucose between 100 mg/dl to 125 mg/dl is diagnostic of prediabetes. In a patient with classic symptoms of hyperglycemia or hyperglycemic crisis, a random glucose >/= 200 mg/dl is diagnostic for diabetes. In the absence of unequivocal hyperglycemia, results should be confirmed by repeat testing. The classification and Diagnosis of Diabetes Diabetes Care 2021; 46: S19-S40. Current interpretive data was last revised 2022. Calcium 9.5 8.5 - 10.3 mg/dL [facility] ([place]) Bilirubin, total 1.8(H) 0.1 - 1.2 mg/dL [facility] ([place]) Protein, pl 7.0 6.5 - 8.5 g/dL [facility] ([place]) Albumin 3.7 3.5 - 5.0 g/dL [facility] ([place]) Alk phos 175(H) 40 - 130 Units/L [facility] ([place]) ALT 106(H) 7 - 55 Units/L [facility] ([place]) AST 243(H) 10 - 50 Units/L [facility] ([place]) Blood 05/08/2025 6:08 PM CDT 05/08/2025 6:14 PM CDT us Aubrie Wesley NP LAB BLOOD ORDERABLES Final Re sult [facility] ([place]) 1 [facility] Department [place] [address] * ECG 12 lead (05/08/2025 6:05 PM CDT) 05/08/2025 6:05 PM CDT Narrative [facility] - 05/09/2025 10:45 AM CDT Vent Rate: 116 bpm RR Interval: 517 msec [place] Interval: 153 msec QRS Duration: 92 msec QT Interval: 330 msec QTC Interval: 399 msec P-R-T [place]: 56 - 43 - 53 degrees IMPRESSION: SINUS TACHYCARDIA ABNORMAL RHYTHM ECG Compared to prior EKG, heart rate has increased Electronically Signed By: Justin Carranza MD us Aubrie D. [place] [employer] ECG ORDERABLES Final Result [facility] from Last 3 Months Insurance [facility] HMO [id number] [place] [address] HEALTHCARE HMO [facility] O Advance Directives For more information, please contact: [phone] * Full Code (Latest Code Status on File) Date Activated Date Inactivated Comments 05/08/2025 10:03 PM 05/11/2025 5:18 PM * Full Code Date Activated Date Inactivated Comments 08/12/2018 12:23 AM 08/14/2018 5:11 PM Care Teams Act English Tutor Relationship Specialty Start Date End Date Anil Singh MD PCP - General Internal Medicine 02/11/18
--- OUTSIDE RECORDS SUMMARY | 2025-06-07 16:01 | XMS_ITS | Clinical Summary ---
Author Organization [facility] Address [address] [place] [address] Phone Care Team Providers Care Transportation Analyst Name Role Phone Anil Singh MD Primary Care Provider [phone] Deborah Khan APRN, [employer] Unavailable [phone] Allergies Active Allergy Reactions Criticality Noted Date Comments Codeine Nausea 11/16/2024 Lisinopril Other (see Comments) 11/16/2024 Cough Medications omeprazole (PriLOSEC) 40 MG CAPSULE DELAYED RELEASE Take 1 Capsule by mouth daily. 3 Active aspirin 81 MG Chewable Tablet Take 1 Tablet by mouth daily. 5 Active Additional Information Patient not taking.Reported on 05/19/2025 atorvastatin (LIPITOR) 40 MG Tablet Take 1 Tablet by mouth nightly. 90 Tablet 5 Active thiamine (VITAMIN B1) 100 MG Tablet Take 1 Tablet by mouth daily. 30 Tablet 5 Active cloNIDine (CATAPRES) 0.1 MG Tablet Take 0.1 mg by mouth 2 times daily. 5 Active metoprolol tartrate (LOPRESSOR) 50 MG Tablet Take 1 Tablet by mouth 2 times daily. 180 Tablet 3 5 Active spironolactone (ALDACTONE) 25 MG Tablet Take 1 Tablet by mouth 2 times daily. 180 Tablet 5 Active apixaban (Eliquis) 5 MG Tablet Take 5 mg by mouth 2 times daily. Active magnesium oxide (MAG-OX) 400 MG Tablet Take 400 mg by mouth daily. Active POTASSIUM CHLORIDE PO Take by mouth. Act amanda furosemide (LASIX) 40 MG TabletIndicati ons:Heart Failure Take 1 Tablet by mouth daily as needed for Other (edema of the legs, shortness of breath or weight gain of 2 lbs or more). Indications: Heart Failure 90 Tablet 5 Active tadalafil (CIALIS) 10 MG Tablet Take 1 Tablet by mouth as needed for Erectile Dysfunction (Take 1 hour prior to sexual activity) for up to 3 doses. 3 Tablet 5 Active losartan (COZAAR) 50 MG Tablet Take 2 Tablets by mouth daily. 180 Tablet 5 Active escitalopram (LEXAPRO) 10 MG Tablet Take 10 mg by mouth daily. 05/19/20 25 Discontin ued(Med List Clean Up) amLODIPine (NORVASC) 10 MG Tablet Take 10 mg by mouth daily. 05/19/20 25 Discontin ued(Med List Clean Up) folic acid (FOLVITE) 1 MG Tablet Take 1 Tablet by mouth daily. 30 Tablet 5 05/19/20 25 Discontin ued(Med List Clean Up) losartan (COZAAR) 50 MG Tablet Take 1 Tablet by mouth daily. 90 Tablet 5 05/19/20 25 Discontin ued(Reord er) nicotine (NICODERM CQ) 21 MG/24HR PATCH 24 HR 1 Patch by Transdermal route every 24 hours. 30 Patch 5 05/19/20 25 Discontin ued(Med List Clean Up) furosemide (LASIX) 40 MG TabletIndicati ons:Heart Failure Take 1 Tablet by mouth daily as needed for Other (edema of the legs, shortness of breath or weight gain of 2 lbs or more). Indications: Cardiac Failure 90 Tablet 5 05/19/20 25 Discontin ued(Reord er) sildenafil citrate (VIAGRA) 50 MG Tablet Take 1 Tablet by mouth once as needed for Erectile Dysfunction (As needed 1 hour before sexual activity; may take up to 4 hours before sexual activity) for up to 3 doses. 3 Tablet 5 05/19/20 25 Discontin ued(Error ) Active Problems Problem Noted Date Diagnosed Date Alcohol dependency 11/17/2024 Illicit drug use 11/17/2024 GERD (gastroesophageal reflux disease) Cellulitis of lower extremity 11/17/2024 Elevated troponin 11/17/2024 New onset of congestive heart failure 11/16/2024 Skin lesions 03/25/2024 Anxiety and depression 09/28/2022 Tobacco dependence syndrome 01/10/2014 Overview (11/17/2024): Tobacco abuse Hypertension Encounters Date Type Department Care Team Description 05/19/2025 11:30 AM CDT Office Visit [facility] Cardiology [facility] [address] [place] [address] Deborah Khan APRN, CNP Acute on chronic systolic congestive heart failure (HCC) (Primary Dx); Cardiomyopathy, unspecified type (HCC); Primary hypertension; Alcohol dependence with unspecified alcohol-induced disorder; Methamphetamine abuse Discharge Disposition: Discharged to home or Selfcare 05/19/2025 Travel 05/14/2025 Telephone [facility] [address] [place] [address] Deborah Khan APRN, CNP Samples 04/29/2025 3:30 PM CDT Office Visit [facility] [address] [place] [address] Deborah Khan APRN, CNP Acute on chronic systolic congestive heart failure (HCC) (Primary Dx); Cardiomyopathy, unspecified type (HCC); Other ascites; Primary hypertension; Alcohol dependence with unspecified alcohol-induced disorder; Methamphetamine abuse Discharge Disposition: Discharged to home or Selfcare 04/29/2025 Travel 04/25/2025 10:16 PM CDT - 04/26/2025 8:02 AM CDT Emergency [facility] [address] [place] [address] Figueroa Car MD Chao, Leigh Chin, MD Hypokalemia Discharge Disposition: Discharged to home or Selfcare 04/25/2025 Travel from Last 3 Months Social History Tobacco Use Types Packs/Day Years Used Date Smoking Tobacco: Every Day Cigarettes Smokeless Tobacco: Never Tobacco Cessation:Ready to Q uit: Yes; Counseling Given: Yes Alcohol Use Standard Drinks/Week Comments Yes 0 (1 standard drink = 0.6 oz pur e alcohol) one pint daily [facility] Utilities Answer Date Recorded In the past [...] any time in the past 12 m [facility], were you homeless or living in a skilled nursing (including now)? No 11/16/2024 Sex and Gender Information Value Date Recorded Sex Assigned at Male 03/28/2024 11:46 PM CDT Legal Sex Male 9:24 PM CDT Gender Identity Male 03/28/2024 11:46 PM CDT Sexual Orientation Not on file Last Filed Vital Signs Vital Sign Reading Time Taken Comments Blood Pressure 110/64 05/19/2025 11:43 AM CDT Pulse 67 05/19/2025 11:43 AM CDT Temperature 36.4 C (97.5 F) 05/19/2025 11:43 AM CDT Respiratory Rate 16 05/19/2025 11:4 3 AM CDT Oxygen Saturation 98% 05/19/2025 11: 43 AM CDT Inhaled Oxygen Concentration - - Weight 126.5 kg (278 lb 12.8 oz) 2024 11:43 AM CDT Height 180.3 cm (5' 11) 05/19/2025 11: 43 AM CDT Body Mass Index 38.88 05/19/2025 11:43 AM CDT Plan of Treatment Upcoming Encounters Date Type Department Care Team (Late st Contact Info) Description 08/18/2025 10:30 AM [facility] Office Visit [facility] - Cardiology - [place] [address] [place] [address] Deborah Khan, [employer], [employer] [address] [address] Health Maintenance Due Date Last Done Comments Hepatitis C Virus (HCV) Screening 1981 Hepatitis B Immunization (1 of 3 - 19+ 3-dose series) 2000 Pneumococcal Immunization Co mbined (1 of 2 - PCV) 2000 Human Papillomavirus (HPV) Immunization (1 - 3-dose SCDM series) 2008 Influenza Immunization (#1) 2025 SARS-COV-2 Immunization ( - season) 2025 Respiratory Syncytial Virus (RSV) Immunization (Adult) (1 - 1-dose 75+ series) 2056 DTaP/Tdap/Td Immunization Discontinued 04/26/2024 TdaP Immunization Completed 04/26/2024 Meningococcal Immunization (ACWY) Aged Out No longer eligible based on patient's age to complete this topic Rotavirus Immunization Aged Out No lo nger eligible based on patient's age to complete this topic Procedures Procedure Name Priority Date/Time Associated Diagnosis Comments D-DIMER STAT 04/26/2025 7:06 AM CDT MAGNESIUM (MG) STAT 04/26/2025 6:16 AM CDT BASIC METABOLIC PANEL W/ CALCIUM TOTAL STAT 04/26/2025 6:16 AM CDT XR CHEST SINGLE VIEW PORTABLE STAT 04/25/2025 11:38 PM CDT CBC WITH AUTO DIFFERENTIAL STAT 04/25/2025 11:11 PM CDT N-TERMINAL- PRO B TYPE NATRIURETIC PEPTIDE STAT 04/25/2025 11:11 PM CDT TROPONIN I, HIGH SENSITIVITY (HSTRP) STAT 04/25/2025 11:11 PM CDT MAGNESIUM (MG) STAT 04/25/2025 11:11 PM CDT COMPLETE BLOOD COUNT (CBC) WITH DIFF STAT 04/25/2025 11:11 PM CDT CMP (COMPREHENSIVE METABOLIC PANEL) STAT 04/25/2025 11:11 PM CDT EKG 12 LEAD STAT 04/25/2025 10:52 PM CDT EKG SCAN 04/25/2025 12:00 AM CDT from Last 3 Months Results * D-DIMER [id number] (04/26/2025 7:06 AM CDT) D DIMER 0.32 <0.50 mcg/mL FEU 04/26/2025 7:38 AM CDT [facility] Blood Venipuncture / Unknown 04/26/2025 7:06 AM CDT 04/26/2025 7:29 AM CDT Narrative [facility] - 04/26/2025 7:38 AM CDT The FDA has approved this method to exclude the diagnosis of DVT and/or PE at the cutoff value of <0.50 mcg/mL FEU. us Dee Wiggins MD HEMATOLOGY ORDERABLES Final R esult [facility] [address] [place] [address] * MAGNESIUM (MG) (04/26/2025 6:16 AM CDT) Only the most recent of2 resultswithin the time period is included. MAGNESIUM 2.0 1.6 - 2.6 mg/dL 04/26/2025 6:46 AM CDT [facility] Blood Venipuncture / Unknown 04/26/2025 6:16 AM CDT 04/26/2025 6:27 AM CDT us Figueroa Car MD CHEMISTRY ORDERABLES Eugenie l Result [facility] [address] [place] [address] * (ABNORMAL) Bmp with Ca, Total [id number] (04/26/2025 6:16 AM CDT) SODIUM 140 136 - 145 mmol/L 04/26/2025 6:46 AM CDT [facility] POTASSIUM 3.5 3.5 - 5.1 mmol/L 04/26/2025 6:46 AM CDT [facility] CHLORIDE 97(L) 98 - 107 mmol/L 04/26/2025 6:46 AM CDT [facility] CO2, VENOUS 31(H) 22 - 30 mmol/L 04/26/2025 6:46 AM CDT [facility] ANION GAP 15.5 <18.0 mmol/L 04/26/2025 6:46 AM CDT [facility] GLUCOSE 143(H) 70 - 99 mg/dL 04/26/2025 6:46 AM CDT [facility] BUN 13 9 - 21 mg/dL 04/26/2025 6:46 AM CDT [facility] CREATININE, BLOOD 1.23 0.70 - 1.30 mg/dL 04/26/2025 6:46 AM CDT [facility] BUN/CREATININE RATIO 11(L) 12 - 20 ratio 04/26/2025 6:46 AM CDT [facility] CALCIUM 9.2 8.7 - 10.5 mg/dL 04/26/2025 6:46 AM CDT [facility] GFR, ESTIMATED >60 >=60 04/26/2025 6:46 AM CDT [facility] Comment: Creatinine Clearance is the preferred criteria for selecting drug dose adjustments in renally impaired patients. The GFR is provided as additional pertinent clinical information. GFR is reported in mL/min/1.73 sq m. Calculation based on the 2020 Chronic Kidney Disease Epidemiology Collaboration (CKD-EPI) equation refit without adjustment for race. GFR, EST. >60 >=60 025 6:46 AM CDT [facility] Comment: Creatinine Clearance is the preferred criteria for selecting drug dose adjustments in renally impaired patients. The GFR is provided as additional pertinent clinical information. GFR is reported in mL/min/1.73 sq m. Calculation based on the 2009 Chronic Kidney Disease Epidemiology Collaboration (CKD-EPI). GFR, EST. NONAFRICAN >60 >=60 04/26/2025 6:46 AM CDT [facility] Comment: Creatinine Clearance is the preferred criteria for selecting drug dose adjustments in renally impaired patients. The GFR is provided as additional pertinent clinical information. GFR is reported in mL/min/1.73 sq m. Calculation based on the 2009 Chronic Kidney Disease Epidemiology Collaboration (CKD-EPI). Blood Venipuncture / Unknown 04/26/2025 6:16 AM CDT 04/26/2025 6:27 AM CDT us Figueroa Car MD CHEMISTRY ORDERABLES Eugenie blackman Result [facility] [address] [place] [address] * XR CHEST SINGLE VIEW PORTABLE (04/25/2025 11:38 PM CDT) Anatomical Region Laterality Modality Chest N/A Computed Radiogr aphy 04/25/2025 11:3 8 PM CDT Impressions 04/26/2025 6:33 AM CDT IMPRESSION: Low lung volumes, perhaps related to poor inspiration, with bibasilar atelectasis. Narrative 04/26/2025 6:33 AM CDT DICTATING PHYSICIAN: Billy Murcia M.D. - [facility] EXAM: XR CHEST SINGLE VIEW PORTABLE 04/25/2025 11:38 PM HISTORY: Chest pain. COMPARISON: 11/16/2024. FINDINGS: The cardiomediastinal silhouette is stable in size and contour. There is no significant pulmonary vascular congestion. There is no pneumothorax. Low lung volumes with mild bibasilar atelectasis. No pleural effusion. Calcified mediastinal lymph nodes, likely the sequela of an old granulomatous process. No acute or suspicious osseous lesions demonstrated. Procedure Note Billy Murcia MD - 04/26/2025 DICTATING PHYSICIAN: Billy Murcia M.D. - [facility] EXAM: XR CHEST SINGLE VIEW PORTABLE 04/25/2025 11:38 PM HISTORY: Chest pain. COMPARISON: 11/16/2024. FINDINGS: The cardiomediastinal silhouette is stable in size and contour. There isno significant pulmonary vascular congestion. There is no pneumothorax.Low lung volumes with mild bibasilar atelectasis. No pleural effusion.Calcified mediastinal lymph nodes, likely the sequela of an oldgranulomatous process. No acute or suspicious osseous lesionsdemonstrated. IMPRESSION: Low lung volumes, perhaps related to poor inspiration, with bibasilaratelectasis. Figueroa Car MD IMG DIAGNOSTIC ORDERABLES Final Result * NT-proBNP (04/25/2025 11:11 PM CDT) NT PROBNP <15.8 <450.0 pg/mL 04/25/2025 11:51 PM CDT [facility] Comment: AGE pg/mL INTERPRETATION All <300 Negative: HF (Heart Failure) unlikely 18 to <50 >=300.0 to <450.0 Indeterminate. Consider other causes of NT-proBNP elevation 50 to 75 >=300.0 to <900.0 Indeterminate. Consider other causes of NT-proBNP elevation >75 >=300.0 to <1800.0 Indeterminate. Consider other causes of NT-proBNP elevation 18 to <50 >=450.0 Positive: HF likely 50 to 75 >=900.0 Positive: HF likely >75 >=1800.0 Positive: HF likely Total protein levels at or above 12.6 mg/dl may falsely decrease NT-proBNP values. Blood Venipuncture / Unknown 04/25/2025 11:11 PM CDT 04/25/2025 11:21 PM CDT Figueroa Car MD CHEMISTRY ORDERABLES Eugenie l Result Performing Organization Address City/[facility]/ZIP Co de Phone Number [facility] [address] [place] [address] * TROPONIN I, HIGH SENSITIVITY (HSTRP) (04/25/2025 11:11 PM CDT) [facility] TROPONIN I, HIGH SENSITIVITY- [place] 3.7 <=35.0 ng/L 04/25/2025 11:47 PM CDT [facility] Comment: High-sensitivity troponin I results are reported in ng/L making the result appear to be 1,000 times higher than the contemporary troponin I value which is reported in ng/ml. Results from [place]. Blood Venipuncture / Unknown 04/25/2025 11:11 PM CDT 04/25/2025 11:21 PM CDT Figueroa Car MD CHEMISTRY ORDERABLES Eugenie l Result [facility] [address] [place] [address] * (ABNORMAL) CBC with Auto Differential (04/25/2025 11:11 PM CDT) [facility] WBC 9.15 4.00 - 12.00 10(3)/mcL 04/25/2025 11:39 PM CDT [facility] RBC 3.74(L) 4.40 - 5.80 10(6)/mcL 04/25/2025 11:39 PM CDT [facility] HEMOGLOBIN (HGB) 14.2 13.0 - 16.5 g/dL 04/25/2025 11:39 PM CDT [facility] HEMATOCRIT (HCT) 40.4 38.0 - 50.0 % 04/25/2025 11:39 PM CDT [facility] MCV 108.0(H) 82.0 - 96.0 fL 04/25/2025 11:39 PM CDT [facility] MCH 38.0(H) 26.0 - 32.0 pg 04/25/2025 11:39 PM CDT [facility] MCHC 35.1 31.0 - 36.0 g/dL 04/25/2025 11:39 PM CDT [facility] PLATELET COUNT 305 140 - 440 10(3)/[facility] 04/25/2025 11:39 PM CDT [facility] RDW 16.1(H) 11.8 - 15.5 % 04/25/2025 11:39 PM CDT [facility] MPV 9.9 8.0 - 12.6 fL 04/25/2025 11:39 PM CDT [facility] NEUTROPHILS 60.2 40.0 - 68.0 % 04/25/2025 11:39 PM CDT [facility] LYMPHOCYTES 27.5 19.0 - 49.0 % 04/25/2025 11:39 PM CDT [facility] MONOCYTES 9.4 3.0 - 13.0 % 04/25/2025 11:39 PM CDT [facility] EOSINOPHILS 2.0 0.0 - 8.0 % 04/25/2025 11:39 PM CDT [facility] BASOPHILS 0.5 0.0 - 1.0 % 04/25/2025 11:39 PM CDT [facility] IMMATURE GRANULOCYTE 0.4 0.0 - 0.4 % 04/25/2025 11:39 PM CDT [facility] ABSOLUTE NEUTROPHILS 5.50(H) 1.40 - 5.30 10(3)/mcL 04/25/2025 11:39 PM CDT [facility] ABSOLUTE LYMPHOCYTES 2.52 0.90 - 3.30 10(3)/mcL 04/25/2025 11:39 PM CDT [facility] ABSOLUTE MONOCYTES 0.86 0.10 - 0.90 10(3)/mcL 04/25/2025 11:39 PM CDT [facility] ABSOLUTE EOSINOPHIL 0.18 0.00 - 0.50 10(3)/mcL 04/25/2025 11:39 PM CDT [facility] ABSOLUTE BASOPHILS 0.05 0.00 - 0.10 10(3)/[facility] 04/25/2025 11:39 PM CDT [facility] ABSOLUTE IMMATURE GRANULOCYTE 0.04(H) 0.00 - 0.03 10 (3) mcL. 04/25/2025 11:39 PM CDT [facility] NRBC PER 100 WBC 0 04/25/20 25 11:39 PM CDT [facility] RESULTS ARE CONSISTENT WITH PERIPHERAL SMEAR REVIEW Yes 04/25/2025 11:39 PM CDT [facility] RBC MORPHOLOGY CONSISTENT WITH INDICES Yes 04/25/2025 11:39 PM CDT [facility] POIKILOCYTOSIS 1+ 04/25/2025 11:39 PM CDT [facility] STOMATOCYTES Present 04/25/2025 11:39 PM CDT [facility] Blood Venipuncture / Unknown 04/25/2025 11:11 PM CDT 04/25/2025 11:21 PM CDT Narrative [facility] - 04/25/2025 11:39 PM CDT Anisocytosis Macrocytosis us Figueroa Car MD HEMATOLOGY ORDERABLES Fin al Result [facility] [address] [place] [address] * (ABNORMAL) CMP (Comprehensive Metabolic Panel) (04/25/2025 11:11 PM CDT) SODIUM 140 136 - 145 mmol/L 04/25/2025 11:44 PM CDT [facility] POTASSIUM 2.9(L) 3.5 - 5.1 mmol/L 04/25/2025 11:44 PM CDT [facility] CHLORIDE 93(L) 98 - 107 mmol/L 04/25/2025 11:44 PM CDT [facility] CO2, VENOUS 31(H) 22 - 30 mmol/L 04/25/2025 11:44 PM CDT [facility] ANION GAP 18.9(H) <18.0 mmol/L 04/25/2025 11:44 PM CDT [facility] GLUCOSE 216(H) 70 - 99 mg/dL 04/25/2025 11:44 PM CDT [facility] BUN 12 9 - 21 mg/dL 04/25/2025 11:44 PM CDT [facility] CREATININE, BLOOD 1.27 0.70 - 1.30 mg/dL 04/25/2025 11:44 PM CDT [facility] BUN/CREATININE RATIO 9(L) 12 - 20 ratio 04/25/2025 11:44 PM CDT [facility] TOTAL PROTEIN 7.0 6.0 - 8.0 g/dL 04/25/2025 11:44 PM CDT [facility] ALBUMIN 3.8 3.5 - 5.0 g/dL 04/25/2025 11:44 PM CDT [facility] A/G RATIO 1.2 1.0 - 2.2 04/25/2025 11:44 PM CDT [facility] CALCIUM 9.3 8.7 - 10.5 mg/dL 04/25/2025 11:44 PM CDT [facility] T BILI 0.3 0.2 - 1.2 mg/dL 04/25/2025 11:44 PM CDT [facility] SGOT (AST) 123(H) <43 U/L 04/25/2025 11:44 PM CDT [facility] SGPT (ALT) 65(H) <56 U/L 04/25/2025 11:44 PM CDT [facility] ALKALINE PHOSPHATASE 117 40 - 150 U/L 04/25/2025 11:44 PM CDT [facility] GFR, ESTIMATED >60 >=60 04/25/2025 11:44 PM CDT [facility] Comment: Creatinine Clearance is the preferred criteria for selecting drug dose adjustments in renally impaired patients. The GFR is provided as additional pertinent clinical information. GFR is reported in mL/min/1.73 sq m. Calculation based on the 2020 Chronic Kidney Disease Epidemiology Collaboration (CKD-EPI) equation refit without adjustment for race. GFR, EST. >60 >=60 025 11:44 PM CDT [facility] Comment: Creatinine Clearance is the preferred criteria for selecting drug dose adjustments in renally impaired patients. The GFR is provided as additional pertinent clinical information. GFR is reported in mL/min/1.73 sq m. Calculation based on the 2009 Chronic Kidney Disease Epidemiology Collaboration (CKD-EPI). GFR, EST. NONAFRICAN >60 >=60 04/25/2025 11:44 PM CDT [facility] Comment: Creatinine Clearance is the preferred criteria for selecting drug dose adjustments in renally impaired patients. The GFR is provided as additional pertinent clinical information. GFR is reported in mL/min/1.73 sq m. Calculation based on the 2009 Chronic Kidney Disease Epidemiology Collaboration (CKD-EPI). Blood Venipuncture / Unknown 04/25/2025 11:11 PM CDT 04/25/2025 11:21 PM CDT us Figueroa Car MD CHEMISTRY ORDERABLES Eugenie blackman Result [facility] [address] [place] [address] * EKG 12 LEAD (04/25/2025 10:52 PM CDT) Ventricular Rate 114 BPM EXTERNAL EKG Atrial Rate 114 BPM EXTERNAL EKG P-R Interval 138 ms EXTERNAL EKG QRS Duration 96 ms EXTERNAL EKG Q-T Duration 360 ms EXTERNAL EKG QTC CALCULATION 496 ms EXTERNAL EKG P [place] 46 degrees EXTERNAL EKG R [place] 44 degrees EXTERNAL EKG T [place] 78 degrees EXTERNAL EKG 04/25/2025 10:5 2 PM CDT Impressions EXTERNAL EKG - 04/28/2025 12:38 PM CDT Sinus tachycardia Nonspecific ST abnormality QTcB >= 480 msec Abnormal ECG When compared with ECG of 16-NOV-2024 14:07, No significant change was found Confirmed by Drew Sanchez ([id number]) on 04/28/2025 12:38:20 PM Narrative Procedure Note Drew Sanchez MD - 04/28/2025 IMPRESSION: Sinus tachycardia Nonspecific ST abnormality QTcB >= 480 msec Abnormal ECG When compared with ECG of 16-NOV-2024 14:07, No significant change was found Confirmed by Drew Sanchez ([id number]) on 04/28/2025 12:38:20 PM Figueroa Car MD IMG ECG ORDERABLES Final Result Performing Organization Address [facility] Co de Phone Number EXTERNAL EKG * EKG SCAN (04/25/2025 12:00 AM CDT) 04/25/2025 us Provider Scan IMG ECG ORDERABLES Final Result Performing Organization Address City/[facility] Co de Phone Number RESULTING AGENCY from Last 3 Months Advance Directives * Full Code (Latest Code Status on File) Date Activated Date Inactivated Comments 11/16/2024 11:46 PM CPR-Full Jonna tment: FULL ARREST: Attempt Resuscitation/CPR wit intubation and mechanical ventilation. PRE-ARREST: Use entire range of life support measures to stabilize the patient. Care Teams Transportation Analyst Relationship Specialty Start Date End Date Anil Singh MD [address] [place] [address] PCP - General Internal Medicine 08/11/18 Deborah Khan, [employer], [employer] [address] [address] Nurse Practitioner Cardiology 05/20/25
[2025-06-07 16:04] VITALS: BP 140/78; PULSE 85; RESP 18; TEMP 36.2; O2SAT 99
== END 2025-06-07 16:23 | disposition home or self-care (01) ==
PROVIDERS: Emergency Provider Nurse Practitioner Family; PCP Internal Medicine
DX: L08.9 Local infection of the skin and subcutaneous tissue, unspecified (principal); B96.89 Other specified bacterial agents as the cause of diseases classified elsewhere; F17.210 Nicotine dependence, cigarettes, uncomplicated; I11.0 Hypertensive heart disease with heart failure; I50.9 Heart failure, unspecified; Z86.2 Personal history of diseases of the blood and blood-forming organs and certain disorders involving the immune mechanism
CPT/HCPCS: 99213; G0463